=== PATIENT | male | born 1940 | race Caucasian/White ===

== ENCOUNTER 2018-12-08 09:01 | Outpatient (CLI) | payer MEDICARE, OTHER, SELFPAY ==
[2018-12-08 11:09] LABS: Abs Immature Grans 0.03 k/cumm (0.0-0.09); Absolute Basophil Count 0.07 k/cumm (0.0-0.2); Absolute Eosinophil Count 0.96 k/cumm (0.0-0.7); Absolute Lymphocyte Count 1.08 k/cumm (1.2-3.4); Absolute Monocyte Count 0.41 k/cumm (0.11-0.7); Absolute Neutrophil Count 2.85 k/cumm (1.2-6.7); Basophils % 1.3; Eosinophils % 17.8; HCT 36.2 % (40.0-50.0); HGB 12.4 g/dL (13.5-17.5); Immature Grans % 0.6; Mean Corp. HGB Concentration 34.3 g/dL (32.0-36.0); Mean Corpuscular Hemoglobin 31.1 pg (27.0-33.0); Mean Corpuscular Volume 90.7 fL (80-95); Mean Platelet Volume 11.3 fL (8.0-11.0); Monocytes % 7.6; Neutrophils % 52.7; Platelet Count 243 x1000/uL (130-400); RBC 3.99 m/cumm (4.50-6.00); RBC Distribution Width 13.2 % (11.8-14.1)
[2018-12-08 11:24] LABS: ALT 21 U/L (12-78); AST 18 U/L (15-37); Albumin 3.7 g/dL (3.4-5.0); Alkaline Phosphatase 84 U/L (46-116); Anion Gap 11.9 mmol/L (3-11); BUN 19 mg/dL (7-18); Bilirubin, Total 0.4 mg/dL (0.2-1.0); CO2 23.1 mmol/L (21.0-32.0); CREATININE 1.11 mg/dL (0.70-1.30); Calcium 9.4 mg/dL (8.5-10.1); Chloride 102 mmol/L (98-107); Glucose 122 mg/dL (70-100); Potassium 4.8 mmol/L (3.5-5.1); Sodium 137 mmol/L (136-145)
[2018-12-08 11:42] LABS: ESR 63 MM/HR (1-20)
== END 2018-12-08 09:21 ==
PROVIDERS: PCP Emergency Medicine; Visit Provider Emergency Medicine
DX: M48.56XA Collapsed vertebra, not elsewhere classified, lumbar region, initial encounter for fracture (principal)
CPT/HCPCS: 36415; 80053; 85652; 85025

== ENCOUNTER 2019-06-10 02:16 | Outpatient (CLI) | payer MEDICARE, OTHER, SELFPAY ==
--- NOTE | 2019-06-10 07:31 | DI.US_ITS ---
SYMPTOM/DIAGNOSIS: ABD AORTIC ANEURYSM W/O RUPTURE ABDOMINAL ULTRASOUND: Abdominal aortic ultrasound. Comparison is 12/11/17 There is again seen a distal abdominal aortic aneurysm measuring 3.6 x 3.5 cm compared to 3.5 cm on the prior examination. The right iliac artery measures 2.0 cm. This also is stable. IMPRESSION: Stable distal abdominal aortic aneurysm measuring 3.6 cm in diameter
== END 2019-06-10 02:36 ==
PROVIDERS: PCP Emergency Medicine; Visit Provider Emergency Medicine
DX: I71.4 Abdominal aortic aneurysm, without rupture (principal)
CPT/HCPCS: 76775

== ENCOUNTER → 2019-12-01 11:13 | Outpatient (BNVA) | payer MEDICARE, OTHER, SELFPAY | PROVIDERS: PCP Emergency Medicine; Referring Provider Emergency Medicine; Visit Provider Physical Therapy Assistant | DX: L97.328 Non-pressure chronic ulcer of left ankle with other specified severity (principal); I10 Essential (primary) hypertension | CPT/HCPCS: 99213 ==

== ENCOUNTER → 2019-12-08 10:54 | Outpatient (BNVA) | payer MEDICARE, OTHER, SELFPAY | PROVIDERS: PCP Emergency Medicine; Referring Provider Emergency Medicine; Visit Provider Physical Therapy Assistant | DX: Z48.817 Encounter for surgical aftercare following surgery on the skin and subcutaneous tissue (principal); L98.8 Other specified disorders of the skin and subcutaneous tissue | CPT/HCPCS: 99212 ==

== ENCOUNTER → 2019-12-15 10:57 | Outpatient (BNVA) | payer MEDICARE, OTHER, SELFPAY | PROVIDERS: PCP Emergency Medicine; Referring Provider Emergency Medicine; Visit Provider Physical Therapy Assistant | DX: L98.8 Other specified disorders of the skin and subcutaneous tissue (principal) | CPT/HCPCS: 99212; 99213 ==

== ENCOUNTER → 2019-12-29 10:48 | Outpatient (BNVA) | payer MEDICARE, OTHER, SELFPAY | PROVIDERS: PCP Emergency Medicine; Referring Provider Emergency Medicine; Visit Provider Physical Therapy Assistant | DX: Z12.11 Encounter for screening for malignant neoplasm of colon (principal) | CPT/HCPCS: 99212 ==

== ENCOUNTER → 2020-01-10 09:15 | Outpatient (BNVA) | payer MEDICARE, OTHER, SELFPAY | PROVIDERS: PCP Emergency Medicine; Referring Provider Emergency Medicine; Visit Provider Surgery | DX: X58.XXXD Exposure to other specified factors, subsequent encounter; Z51.89 Encounter for other specified aftercare; S81.802D Unspecified open wound, left lower leg, subsequent encounter | CPT/HCPCS: 99212 ==

== ENCOUNTER → 2020-01-13 11:17 | Outpatient (BNVA) | payer MEDICARE, OTHER, SELFPAY | PROVIDERS: PCP Emergency Medicine; Referring Provider Emergency Medicine; Visit Provider Physical Therapy Assistant | DX: L97.328 Non-pressure chronic ulcer of left ankle with other specified severity (principal); Z51.89 Encounter for other specified aftercare | CPT/HCPCS: 99213 ==

== ENCOUNTER → 2020-01-17 11:15 | Outpatient (BNVA) | payer MEDICARE, OTHER, SELFPAY | PROVIDERS: PCP Emergency Medicine; Referring Provider Emergency Medicine; Visit Provider Surgery | DX: Z48.817 Encounter for surgical aftercare following surgery on the skin and subcutaneous tissue (principal); Z48.01 Encounter for change or removal of surgical wound dressing | CPT/HCPCS: 99213 ==

== ENCOUNTER → 2020-01-19 09:50 | Outpatient (BNVA) | payer MEDICARE, OTHER, SELFPAY | PROVIDERS: PCP Emergency Medicine; Referring Provider Emergency Medicine; Visit Provider Physical Therapy Assistant | DX: Z48.00 Encounter for change or removal of nonsurgical wound dressing (principal) | CPT/HCPCS: 99213 ==

== ENCOUNTER 2020-01-24 01:51 | Outpatient (CLI) | payer MEDICARE, OTHER, SELFPAY ==
--- NOTE | 2020-01-24 08:45 | DI.CT_ITS ---
EXAM: CT LOWER EXTREMITY LT W CLINICAL HISTORY: Chronic wound/Increased erythema, left inner ankle, S81.809A. TECHNIQUE: Imaging Protocol: Axial computed tomography images with coronal and sagittal reformatted images were created and reviewed. CONTRAST MATERIAL: Intravenous: Omnipaque 350 Contrast volume:100 mL contrast route:IV - Oral: No COMPARISON: ABD PELVIS WITH CONTRAST from 05/15/2016 FINDINGS: Bones: The osseous structures and articular surfaces are intact. There is no evidence of fracture or dislocation. Bony alignment is satisfactory. The mid-foot is well maintained. No findings to suggest osteomyelitis are present. Degenerative changes are seen at the ankle. No lytic or sclerotic lesio ns are identified. Soft Tissues: There is skin thickening and subcutaneous edema along the medial aspect of the lower l eg extending into the lower foot suggesting cellulitis. No focal fluid collection is seen to suggest an abscess. Vasculature: There is atherosclerosis present particularly involving the popliteal artery and the ant erior tibial artery. There are areas of stenosis seen throughout the anterior tibial artery. The fi bular and posterior tibial arteries are well maintained throughout their length. IMPRESSION: 1. No findings to suggest acute osteomyelitis. 2. Atherosclerosis of the arteries in the lower extremity particularly involving the anterior tibial artery. Areas of stenosis are seen throughout the anterior tibial artery. 3. Cellulitis of the lower extremity without evidence of an abscess. DATA REPOSITORY: All CT scans at this facility are submitted to the National Radiology Data Registry (NRDR) Dose Index Registry (DIR) with the [employer] (ACR). RADIATION OPTIMIZATION: All CT scans at this facility use at least one of these dose optimization te chniques: automated exposure control; mA and/or kV adjustment per patient size (includes targeted exa ms where dose is matched to clinical indication); or iterative reconstruction.
[2020-01-24] MEDS: Omnipaque 350 MG/ML 100 ML BTL IJ (10:39)
[2020-01-24] MEDS: Normal Saline - Diluent 50 ML VIAL IV (10:40)
== END 2020-01-24 02:11 ==
PROVIDERS: PCP Emergency Medicine; Visit Provider Surgery
DX: L03.116 Cellulitis of left lower limb (principal); L97.328 Non-pressure chronic ulcer of left ankle with other specified severity; Z48.00 Encounter for change or removal of nonsurgical wound dressing
CPT/HCPCS: 99212; 73701; J3490

== ENCOUNTER → 2020-01-27 09:49 | Outpatient (BNVA) | payer MEDICARE, OTHER, SELFPAY | PROVIDERS: PCP Emergency Medicine; Referring Provider Emergency Medicine; Visit Provider Physical Therapy Assistant | DX: I83.023 Varicose veins of left lower extremity with ulcer of ankle; L97.322 Non-pressure chronic ulcer of left ankle with fat layer exposed; F17.210 Nicotine dependence, cigarettes, uncomplicated; I10 Essential (primary) hypertension | CPT/HCPCS: 99213 ==

== ENCOUNTER → 2020-01-31 10:13 | Outpatient (BNVA) | payer MEDICARE, OTHER, SELFPAY | PROVIDERS: PCP Emergency Medicine; Referring Provider Emergency Medicine; Visit Provider Physical Therapy Assistant | DX: Z48.00 Encounter for change or removal of nonsurgical wound dressing (principal); L97.322 Non-pressure chronic ulcer of left ankle with fat layer exposed; I10 Essential (primary) hypertension | CPT/HCPCS: 99212 ==

== ENCOUNTER → 2020-02-03 11:38 | Outpatient (BNVA) | payer MEDICARE, OTHER, SELFPAY | PROVIDERS: PCP Emergency Medicine; Referring Provider Emergency Medicine; Visit Provider Surgery | DX: L97.922 Non-pressure chronic ulcer of unspecified part of left lower leg with fat layer exposed (principal); Z48.00 Encounter for change or removal of nonsurgical wound dressing | CPT/HCPCS: 99212 ==

== ENCOUNTER → 2020-02-08 11:49 | Outpatient (BNVA) | payer MEDICARE, OTHER, SELFPAY | PROVIDERS: PCP Emergency Medicine; Referring Provider Emergency Medicine; Visit Provider Physical Therapy Assistant | DX: Z48.00 Encounter for change or removal of nonsurgical wound dressing (principal); L97.922 Non-pressure chronic ulcer of unspecified part of left lower leg with fat layer exposed; I10 Essential (primary) hypertension | CPT/HCPCS: 99213 ==

== ENCOUNTER → 2020-02-15 09:58 | Outpatient (BNVA) | payer MEDICARE, OTHER, SELFPAY | PROVIDERS: PCP Emergency Medicine; Referring Provider Emergency Medicine; Visit Provider Physical Therapy Assistant | DX: Z48.00 Encounter for change or removal of nonsurgical wound dressing (principal); L97.922 Non-pressure chronic ulcer of unspecified part of left lower leg with fat layer exposed; I10 Essential (primary) hypertension | CPT/HCPCS: 99213 ==

== ENCOUNTER → 2020-02-22 09:50 | Outpatient (BNVA) | payer MEDICARE, OTHER, SELFPAY | PROVIDERS: PCP Emergency Medicine; Referring Provider Emergency Medicine; Visit Provider Physical Therapy Assistant | DX: Z48.00 Encounter for change or removal of nonsurgical wound dressing (principal); L97.922 Non-pressure chronic ulcer of unspecified part of left lower leg with fat layer exposed; I10 Essential (primary) hypertension | CPT/HCPCS: 99213 ==

== ENCOUNTER → 2020-02-29 10:06 | Outpatient (BNVA) | payer MEDICARE, OTHER, SELFPAY | PROVIDERS: PCP Emergency Medicine; Referring Provider Emergency Medicine; Visit Provider Surgery | DX: L97.322 Non-pressure chronic ulcer of left ankle with fat layer exposed (principal); I83.023 Varicose veins of left lower extremity with ulcer of ankle; D64.9 Anemia, unspecified; Z48.00 Encounter for change or removal of nonsurgical wound dressing; F17.210 Nicotine dependence, cigarettes, uncomplicated; I10 Essential (primary) hypertension | CPT/HCPCS: 99212; 99213 ==

== ENCOUNTER → 2020-03-09 09:50 | Outpatient (BNVA) | payer MEDICARE, OTHER, SELFPAY | PROVIDERS: PCP Emergency Medicine; Referring Provider Emergency Medicine; Visit Provider Surgery | DX: L97.922 Non-pressure chronic ulcer of unspecified part of left lower leg with fat layer exposed (principal); I83.023 Varicose veins of left lower extremity with ulcer of ankle; Z51.89 Encounter for other specified aftercare; F17.200 Nicotine dependence, unspecified, uncomplicated; I72.3 Aneurysm of iliac artery; I71.4 Abdominal aortic aneurysm, without rupture; I21.9 Acute myocardial infarction, unspecified; I65.29 Occlusion and stenosis of unspecified carotid artery; E78.5 Hyperlipidemia, unspecified; G62.9 Polyneuropathy, unspecified; I87.2 Venous insufficiency (chronic) (peripheral) | CPT/HCPCS: 99213 ==

== ENCOUNTER → 2020-03-12 10:55 | Outpatient (BNVA) | payer MEDICARE, OTHER, SELFPAY | PROVIDERS: PCP Emergency Medicine; Referring Provider Emergency Medicine; Visit Provider Surgery | DX: I87.2 Venous insufficiency (chronic) (peripheral) (principal); Z51.89 Encounter for other specified aftercare; I72.3 Aneurysm of iliac artery; L97.522 Non-pressure chronic ulcer of other part of left foot with fat layer exposed; L97.922 Non-pressure chronic ulcer of unspecified part of left lower leg with fat layer exposed; I83.023 Varicose veins of left lower extremity with ulcer of ankle; F17.200 Nicotine dependence, unspecified, uncomplicated; Z98.890 Other specified postprocedural states; I65.29 Occlusion and stenosis of unspecified carotid artery; E78.5 Hyperlipidemia, unspecified | CPT/HCPCS: 99212; 99213 ==

== ENCOUNTER → 2020-03-21 10:55 | Outpatient (BNVA) | payer MEDICARE, OTHER, SELFPAY | PROVIDERS: PCP Emergency Medicine; Referring Provider Emergency Medicine; Visit Provider Surgery | DX: I87.2 Venous insufficiency (chronic) (peripheral) (principal); Z51.89 Encounter for other specified aftercare; L97.522 Non-pressure chronic ulcer of other part of left foot with fat layer exposed; L97.922 Non-pressure chronic ulcer of unspecified part of left lower leg with fat layer exposed; I83.003 Varicose veins of unspecified lower extremity with ulcer of ankle; F17.200 Nicotine dependence, unspecified, uncomplicated; D64.9 Anemia, unspecified; I70.203 Unspecified atherosclerosis of native arteries of extremities, bilateral legs | CPT/HCPCS: 99212; 99213 ==

== ENCOUNTER → 2020-03-28 11:00 | Outpatient (BNVA) | payer MEDICARE, OTHER, SELFPAY | PROVIDERS: PCP Emergency Medicine; Referring Provider Emergency Medicine; Visit Provider Surgery | DX: L97.522 Non-pressure chronic ulcer of other part of left foot with fat layer exposed (principal); Z51.89 Encounter for other specified aftercare | CPT/HCPCS: 99212; 99213 ==

== ENCOUNTER → 2020-04-04 11:30 | Outpatient (BNVA) | payer MEDICARE, OTHER, SELFPAY | PROVIDERS: PCP Emergency Medicine; Referring Provider Emergency Medicine; Visit Provider Surgery | DX: L97.922 Non-pressure chronic ulcer of unspecified part of left lower leg with fat layer exposed (principal); L97.302 Non-pressure chronic ulcer of unspecified ankle with fat layer exposed; Z48.00 Encounter for change or removal of nonsurgical wound dressing; I70.203 Unspecified atherosclerosis of native arteries of extremities, bilateral legs; I87.2 Venous insufficiency (chronic) (peripheral); I83.003 Varicose veins of unspecified lower extremity with ulcer of ankle; F17.200 Nicotine dependence, unspecified, uncomplicated | CPT/HCPCS: 99212; 99213 ==

== ENCOUNTER → 2020-04-18 10:55 | Outpatient (BNVA) | payer MEDICARE, OTHER, SELFPAY | PROVIDERS: PCP Emergency Medicine; Referring Provider Emergency Medicine; Visit Provider Surgery | DX: L97.522 Non-pressure chronic ulcer of other part of left foot with fat layer exposed (principal); L97.922 Non-pressure chronic ulcer of unspecified part of left lower leg with fat layer exposed; I87.2 Venous insufficiency (chronic) (peripheral); Z51.89 Encounter for other specified aftercare; F17.200 Nicotine dependence, unspecified, uncomplicated; I83.002 Varicose veins of unspecified lower extremity with ulcer of calf; L97.329 Non-pressure chronic ulcer of left ankle with unspecified severity | CPT/HCPCS: 99212; 99213 ==

== ENCOUNTER → 2020-05-16 09:59 | Outpatient (BNVA) | payer MEDICARE, OTHER, SELFPAY | PROVIDERS: PCP Emergency Medicine; Referring Provider Emergency Medicine; Visit Provider Surgery | DX: I83.023 Varicose veins of left lower extremity with ulcer of ankle (principal); L97.321 Non-pressure chronic ulcer of left ankle limited to breakdown of skin; F17.200 Nicotine dependence, unspecified, uncomplicated; L97.922 Non-pressure chronic ulcer of unspecified part of left lower leg with fat layer exposed | CPT/HCPCS: 99211; 99213 ==

== ENCOUNTER 2020-05-25 03:54 | Outpatient (CLI) | payer MEDICARE, OTHER, SELFPAY ==
--- NOTE | 2020-05-25 06:45 | DI.US_ITS ---
EXAM: US AAA DIAGNOSTIC CLINICAL HISTORY: F/U AAA,I71.4 TECHNIQUE: Ultrasound performed using standard protocol. COMPARISON: US US AAA diagnostic from 06/10/2019 FINDINGS: Ultrasound examination of the abdominal aorta was performed to re-evaluate infrarenal 36 millimeter i n diameter aneurysm seen on prior ultrasound of June 2019. On today's examination the 36 millimeter aneurysm is again seen, no change in appearance. No evidenc e of leakage or pseudoaneurysm. The common iliac arteries are mildly aneurysmal as well, measuring a bout 22 millimeters in greatest diameter on the left and about 24 millimeters in greatest diameter on the right. IMPRESSION: Stable 36 millimeter infrarenal abdominal aortic aneurysm. DATA REPOSITORY:
== END 2020-05-25 04:14 ==
PROVIDERS: PCP Emergency Medicine; Visit Provider Emergency Medicine
DX: I71.4 Abdominal aortic aneurysm, without rupture (principal)
CPT/HCPCS: 76775

== ENCOUNTER → 2020-06-06 10:54 | Outpatient (BNVA) | payer MEDICARE, OTHER, SELFPAY | PROVIDERS: PCP Emergency Medicine; Referring Provider Emergency Medicine; Visit Provider Physical Therapy Assistant | DX: L97.321 Non-pressure chronic ulcer of left ankle limited to breakdown of skin (principal); I83.023 Varicose veins of left lower extremity with ulcer of ankle; Z51.89 Encounter for other specified aftercare | CPT/HCPCS: 99212 ==

== ENCOUNTER → 2020-06-27 09:53 | Outpatient (BNVA) | payer MEDICARE, OTHER, SELFPAY | PROVIDERS: PCP Emergency Medicine; Referring Provider Emergency Medicine; Visit Provider Surgery | DX: I83.023 Varicose veins of left lower extremity with ulcer of ankle (principal); Z51.89 Encounter for other specified aftercare; I87.2 Venous insufficiency (chronic) (peripheral) | CPT/HCPCS: 99212 ==

== ENCOUNTER 2021-02-26 23:09 | Outpatient (REF) | payer MEDICARE, OTHER, SELFPAY ==
[2021-02-26 14:18] LABS: Calculated LDL 89 mg/dL (<100); Cholesterol 162 mg/dL (<200); HDL Cholesterol 29 mg/dL (40-60); Triglyceride 220 mg/dL (<150)
== END 2021-02-26 23:10 | disposition home or self-care (01) ==
LOC: LBN 23:09
PROVIDERS: PCP Emergency Medicine; Visit Provider Emergency Medicine
DX: I71.4 Abdominal aortic aneurysm, without rupture (principal)
CPT/HCPCS: 80061

== ENCOUNTER 2021-06-28 03:56 | Outpatient (CLI) | payer MEDICARE, OTHER, SELFPAY ==
--- NOTE | 2021-06-28 07:00 | DI.US_ITS ---
Exam(s) US AAA DIAGNOSTIC EXAM: US AAA DIAGNOSTIC CLINICAL HISTORY: F/U AAA,I71.4 COMPARISON: US US AAA DIAGNOSTIC from 05/25/2020 FINDINGS: Abdominal Aorta: Proximal: 2.4 x 2.7 cm Mid: 2.7 x 2.8 cm Distal: 3.5 x 3.4 cm Iliac's: Right: 2.4 x 2.4 cm Left: 1.5 x 1.8 cm The doppler velocities are within normal limits. Atherosclerosis is present. IMPRESSION: 1. Stable distal abdominal aortic aneurysm. There is maximum diameter 3.5 cm on the current examinat ion compared to 3.6 on the prior examination. 2. 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 DATA REPOSITORY:
== END 2021-06-28 04:16 ==
PROVIDERS: PCP Emergency Medicine; Visit Provider Emergency Medicine
DX: I71.4 Abdominal aortic aneurysm, without rupture (principal); I72.3 Aneurysm of iliac artery
CPT/HCPCS: 76775

== ENCOUNTER → 2022-03-03 02:57 | Outpatient (CLI) | payer MEDICARE, SELFPAY ==
--- NOTE | 2022-03-03 06:30 | DI.CT_ITS ---
Exam(s) CT LUMBAR SPINE WO EXAM: CT LUMBAR SPINE WO CLINICAL HISTORY: neurogenic claudication,spinal stenosis, m48.00. TECHNIQUE: Imaging Protocol: Axial computed tomography images with coronal and sagittal reformatted images were created and reviewed COMPARISON: CT ABD PELVIS WITH CONTRAST from 05/15/2016 CT LUMBAR SPINE WITHOUT CONTRAST from 05/19/2018 FINDINGS: Bones: The last intervertebral disc space is designated the L5/S1 level for the numbering purpose of this examination. Since the prior examination the compression fracture deformity of L3 has progresse d. There is now loss of almost 50 percent of the height of the vertebral body centrally. There is a lso been progression of the compression deformity of L4 since the prior examination. There is loss o f approximately 25 percent of the height of the vertebral body. There is a new compression deformity at L2. Acuity is indeterminate. There is loss of approximately 30 percent of the height of the sarina tebral body centrally. No retropulsion is seen. Alignment is satisfactory. The bones are osteopenic . There is no spondylolysis or spondylolisthesis. T12-L1: No disc herniations or bulges are present. No central spinal canal or neural foraminal steno sis. L1-2: There is a mild diffuse disc bulge. There is a vacuum disc present. No central spinal canal or neural foraminal stenosis. L2-3: There is a mild diffuse disc bulge. No central spinal canal or neural foraminal stenosis. L3-4: There is a mild diffuse disc bulge. There are hypertrophic changes of the endplates and facet s. These findings cause mild narrowing of the central spinal canal. There is also [id number] bilateral neural foraminal stenosis. L4-5: There is a diffuse disc bulge. There are degenerative changes of the facets. No significant central spinal canal stenosis is seen. There is mild right and moderately severe left neural foramin al stenosis. L5-S1: No disc herniations or bulges are present. Degenerative changes of the facets are seen. The findings result in marked bilateral neural foraminal stenosis. No significant central spinal canal s tenosis. Soft Tissues: The visualized SI joints and sacrum are will maintained. The paraspinal soft tissues a re unremarkable. There is diverticulosis seen in the colon, but no evidence of acute diverticulitis. A normal appendix is visualized. Abdominal aorta: There is tortuosity of the abdominal aorta. There is a 3.2 cm distal abdominal aort ic aneurysm. The right kidney is incompletely imaged but there is capsular calcification around a si gnificant portion of the right kidney laterally. This has progressed since the CT examination from . IMPRESSION: 1. Multilevel degenerative changes in the lumbar spine resulting in central spinal canal and neural f oraminal stenosis as described above. 2. Compression fracture deformities of L2, L3 and L4. The L2 compression fracture deformity is new s mahendra the most recent examination from 05/19/2018. There has been progression of the compression of th e L3 and L4 vertebral bodies compared to the prior examination. 3. 3.2 cm distal abdominal aortic aneurysm. RADIATION DOSE DELIVERED: 792.06mGy.cm Total DLP 792.06mGy.cm Total DLP DATA REPOSITORY: All CT scans at this facility are submitted to the National Radiology Data Registry (NRDR) Dose Index Registry (DIR) with the [employer] (ACR). RADIATION OPTIMIZATION: All CT scans at this facility use at least one of these dose optimization te chniques: automated exposure control; mA and/or kV adjustment per patient size (includes targeted exa ms where dose is matched to clinical indication); or iterative reconstruction.
== END ==
PROVIDERS: PCP Family Medicine; Visit Provider Emergency Medicine
DX: M48.062 Spinal stenosis, lumbar region with neurogenic claudication (principal); M48.56XA Collapsed vertebra, not elsewhere classified, lumbar region, initial encounter for fracture; M51.16 Intervertebral disc disorders with radiculopathy, lumbar region
CPT/HCPCS: 72131

== ENCOUNTER → 2022-10-06 01:43 | Outpatient (CLI) | payer MEDICARE, SELFPAY ==
--- NOTE | 2022-10-06 07:00 | DI.US_ITS ---
Exam(s) US AAA DIAGNOSTIC EXAM: US AAA DIAGNOSTIC CLINICAL HISTORY: reassess AAA,i71.4 COMPARISON: CT CT LUMBAR SPINE WO from 03/03/2022 FINDINGS: Abdominal Aorta: Proximal: 3.1 cm Mid: 3.3 cm Distal: 3.2 by 3.6 cm Iliacs: Right: 2.1 cm Left: 1.6 cm IMPRESSION: Mild interval increase in size a abdominal aortic aneurysm, now measuring 3.6 cm maximal diameter dis tally. Stable dilatation right common iliac artery, 2.1 cm. DATA REPOSITORY:
== END ==
PROVIDERS: PCP Family Medicine; Visit Provider Family Medicine
DX: I71.40 Abdominal aortic aneurysm, without rupture, unspecified (principal); I72.3 Aneurysm of iliac artery
CPT/HCPCS: 76775

== ENCOUNTER 2023-03-26 11:27 | Outpatient (CLI) | payer MEDICARE, SELFPAY ==
[2023-03-26 12:19] LABS: HCT 34.4 % (40.0-50.0); HGB 11.3 g/dL (13.5-17.5); MCH 29.9 pg (27.0-33.0); MCHC 32.8 % (32.0-36.0); MCV 91 fL (80-95); MPV 10.9 fL (8.0-11.0); Platelet Count 198 10^3/uL (130-400); RBC 3.78 10^6/uL (4.36-5.78); RDW 13.4 % (11.8-14.1); WBC 6.45 10^3/uL (4.4-10.8)
[2023-03-26 12:37] LABS: Anion Gap 8.5 mmol/L (3-11); BUN 16 mg/dL (7-18); CO2 26.5 mmol/L (21.0-32.0); CREATININE 1.3 mg/dL (0.70-1.30); Calcium 9.2 mg/dL (8.5-10.1); Calculated LDL 91 mg/dL (<100); Chloride 103 mmol/L (98-107); Cholesterol 155 mg/dL (<200); Estimated GFR 54.85 (mL/min/1.73m2); Glucose 101 mg/dL (74-106); HDL Cholesterol 37 mg/dL (40-60); Potassium 4.6 mmol/L (3.5-5.1); Sodium 138 mmol/L (136-145); Triglyceride 136 mg/dL (<150)
== END 2023-03-26 11:28 | disposition home or self-care (01) ==
LOC: LOS 11:27
PROVIDERS: PCP Family Medicine; Visit Provider Family Medicine
DX: E78.5 Hyperlipidemia, unspecified (principal); R53.83 Other fatigue; E87.1 Hypo-osmolality and hyponatremia
CPT/HCPCS: 36415; 80048; 80061; 85027

== ENCOUNTER 2023-04-13 01:18 | Outpatient (CLI) | payer MEDICARE, SELFPAY ==
--- NOTE | 2023-04-13 06:45 | DI.US_ITS ---
Exam(s) US AAA DIAGNOSTIC EXAM: US AAA DIAGNOSTIC CLINICAL HISTORY: reevaluate AAA,abnl wt loss, r63.4 COMPARISON: No exams were available for comparison FINDINGS: Abdominal Aorta: Proximal: 2.3 x 2.5 cm Mid: 2.9 x 2.9 cm Distal: 3.6 x 3.9 cm Iliac's: Right: 2.4 x 2.7 cm Left: 1.3 x 1.6 cm Atherosclerosis is present. IMPRESSION: The distal abdominal aorta measures 3.6 x 3.9 cm. This compares to 3.2 x 3.6 cm on the prior examina tion. DATA REPOSITORY:
== END 2023-04-13 01:38 ==
LOC: DI 01:18
PROVIDERS: PCP Family Medicine; Visit Provider Family Medicine
DX: R63.4 Abnormal weight loss (principal); I70.91 Generalized atherosclerosis; I77.811 Abdominal aortic ectasia
CPT/HCPCS: 76775

== ENCOUNTER 2023-06-06 18:53 | Observation (INO) | payer MEDICARE, SELFPAY ==
[2023-06-06] VITALS (109 sets, daily range): BP systolic 136–172; BP diastolic 56–88; PULSE 65–81; RESP 12–32; TEMP 36.4; O2SAT 94–98
--- NOTE | 2023-06-06 18:45 | DI.RAD_ITS ---
Exam(s) XR CHEST 2V PA LATERAL EXAM: XR CHEST 2V PA LATERAL CLINICAL HISTORY: syncope TECHNIQUE: 2D digital imaging was performed. COMPARISON: CR CHEST 2 VIEWS PA,LAT from 08/21/2015 FINDINGS: HEART: Normal size. Aorta: Not dilated. PULMONARY VASCULATURE: Normal. LUNGS: Masslike density seen left upper lobe roughly 3 cm. Underlying fibrotic changes. PLEURAL SPACE: No pleural effusion or pneumothorax. BONE:Unremarkable for age. Soft tissues: Small metallic density again noted over the head of the right clavicle, noted on prior exam. IMPRESSION: Roughly 3 centimeter mass like lesion in the right parahilar region, focal infiltrate versus mass. C hest CT with contrast recommended for further evaluation. DATA REPOSITORY: RADIATION DOSE DELIVERED:
--- NOTE | 2023-06-06 18:45 | RT.EKG_ITS ---
APPROVED REPORT Exam: Resting ECG Reason for Exam: syncope Patient Location: E HR:72 bpm ECG Measurements Heart Rate 72 AXIS MN 185 P -42 QRSd 142 QRS -8 QT 429 T 160 QTc 462 Conclusion Sinus rhythm... V-rate 60- 99 Ventricular premature complex Left bundle branch block new compared to prior 2017
--- NOTE | 2023-06-06 18:56 | W.ED.GENAD ---
Discharge Plan Disposition Patient Disposition: Admit to [facility] Condition: Serious Discharge Details Chief Complaint: [id number] Clinical Impression: Syncope and collapse Primary Care Provider: Marino Nieto ED Provider: Le Baker Home Meds and New Rx's Prescriptions: No Action silver sulfadiazine [Silvadene] 1 % cream 1 applic Topical DAILY PRN (Reason: wound healing) Qty: 50 6RF triamcinolone acetonide 0.1 % ointment 1 applic Topical BID PRN (Reason: stasis ulcer) Qty: 453.6 2RF lisinopril [Zestril] 20 mg tablet 20 mg PO DAILY Qty: 90 3RF triamcinolone acetonide 0.5 % cream 1 applic Topical BID Qty: 45 3RF Rx Instructions: Use on affected area that is about 3 inches in diameter metoprolol tartrate 50 mg tablet 25 mg PO BID Qty: 90 3RF pravastatin 20 mg tablet 20 mg PO DAILY Qty: 90 3RF amlodipine [Norvasc] 2.5 mg tablet 2.5 mg PO DAILY Qty: 90 3RF Patient Comments: added in error; already in med rec once omeprazole 20 mg capsule,delayed release(DR/EC) 20 mg PO DAILY Qty: 60 6RF aspirin 81 MG tablet,chewable 1 tab PO DAILY Patient Comments: 06/08/18 restarted. [facility] 04/21/18 not taking. [facility] amlodipine 2.5 mg tablet 2.5 mg DAILY Patient Comments: TAKE 1 TABLET BY MOUTH DAILY Medical Decision Making 82yo male with HTN, HLD, chronic ulcer left foot, prior NH in 40's, presenting with syncope. History from patient and EMS. Yard work and decreased PO intake today. At dinner felt unwell, clammy, then passed out; came to still in chair. No fall or head strike. No chest pain or shortness of breath at any point. On EMS arrival patient bradycardic to 40's and hypotensive to SBP 80's; resolved without intervention. Vital signs reassuring on arrival with HR in 60's on monitor, patient alert, well appearing, denies complaints. Fingerstick blood glucose reassuring. High risk syncope in elderly patient; EKG sinus rhythm with LBBB which is new compared to prior EKG in 2018, no over indications of ischemia. Labs as below, CBC with mild anemia (hg 11.4), no leukocytosis. CMP with Cr 1.8 (most recent prior 1.4 in 2018, does not meet criteria for CARLOZ). Mg slightly low at 1.6, oral replacement ordered. Initial troponin negative. CXR independently reviewed, no pneumonia on my view, radiology read below. Accepted by hospitalist for further workup and management and awaiting transfer to the floor. Imaging Data Radiologic Study: Imaging: X-Ray Radiologist's impression: IMPRESSION: Ill-defined 2.8 cm opacity in the right perihilar region, seen best on the frontal radiograph, but may be located within the anterior aspect of the right upper lobe on the lateral radiograph. Finding may represent infectious/inflammatory focus versus carcinoma. Recommend further evaluation with contrast-enhanced chest CT. Lab Data Labs: Laboratory Tests Range/Units 06/06/23 06/06/23 06/06/23 19:05 19:05 19:05 WBC (4.4-10.8) 10^3/uL 7.72 RBC (4.36-5.78) 10^6/uL 3.81 L Hgb (13.5-17.5) g/dL 11.4 L Hct (40.0-50.0) % 34.8 L MCV (80-95) fL 91 MCH (27.0-33.0) pg 29.9 MCHC (32.0-36.0) % 32.8 RDW (11.8-14.1) % 13.4 Plt Count (130-400) 10^3/uL 215 MPV (8.0-11.0) fL 10.5 Immature Gran % 0.4 Neutrophils % 71.3 Lymphocytes % 7.3 Monocytes % 7.5 Eosinophils % 12.6 Basophils % 0.9 Nucleated RBC % (0.0-0.3) % 0.0 Absolute Neutrophils (1.2-6.7) 10^3/uL 5.51 Absolute Lymphocytes (1.2-3.4) 10^3/uL 0.56 L Absolute Monocytes (0.1-0.8) 10^3/uL 0.58 Absolute Eosinophils (0.0-0.7) 10^3/uL 0.97 H Absolute Basophils (0.0-0.2) 10^3/uL 0.07 PT (9.3-11.0) sec 10.7 INR (0.9-1.1) 1.1 APTT (21.5-31.9) sec 24.3 Sodium (136-145) mmol/L 135 L Potassium (3.5-5.1) mmol/L 4.3 Chloride (98-107) mmol/L 98 Carbon Dioxide (21.0-32.0) mmol/L 25.3 Anion Gap (3-11) mmol/L 11.7 H BUN (7-18) mg/dL 32 H Creatinine (0.70-1.30) mg/dL 1.8 H Est GFR (CKD-EPI 2020) (mL/min/1.73m2) 37.12 Glucose (74-106) mg/dL 131 H Calcium (8.5-10.1) mg/dL 9.2 Magnesium (1.8-2.4) mg/dL 1.6 L Total Bilirubin (0.2-1.0) mg/dL 0.3 AST (15-37) U/L 10 L ALT (16-63) U/L 17 Alkaline Phosphatase (46-116) U/L 127 H Troponin I (<or=60) ng/L < 50 Total Protein (6.4-8.2) g/dL 9.1 H Albumin (3.4-5.0) g/dL 3.3 L TSH (0.36-3.74) uIU/mL 0.42 HPI General Mode of arrival: EMS. Date/Time Provider Initiated Documentation: 06/06/23 18:56. Limitations to Documentation: no limitations. Information obtained by: patient and EMS. HPI Narrative: 82yo male with HTN, HLD, chronic ulcer left foot, prior NH in 40's, presenting with syncope. History from patient and EMS. Was outside working the yard today, did not eat and drink as much as usual. Sat down to dinner and felt generally unwell, clammy, diaphoretic, vision darkened. Lost consciousness. Came to still sitting in the chair with his present; EMS arrived shortly thereafter. Per EMS on their arrival pt bradycardiac to 40's, hypotensive with SBP in 80's. Improved without intervention. Patient denies chest pain or shortness of breath at any time. Reports feeling well now. Has been generally more fatigued over the past week, otherwise in his usual state of health. No fever, chills, rash, nausea, vomiting, abdominal pain, back pain, dysurria, hematuria, chest pain, difficultly breathing, palpations, or other concerns. Related Data Home Medications Medication Instructions Recorded Confirmed aspirin 81 mg chewable tablet 1 tab PO DAILY 03/16/18 06/06/23 triamcinolone acetonide 0.1 % 1 applic topical BID PRN stasis 02/26/21 06/06/23 topical ointment ulcer #453.6 grams silver sulfadiazine 1 % topical 1 applic topical DAILY PRN wound 03/18/22 06/06/23 cream (Silvadene) healing #50 grams pravastatin 20 mg tablet 20 mg PO DAILY #90 tabs 06/17/22 06/06/23 amlodipine 2.5 mg tablet (Norvasc) 2.5 mg PO DAILY #90 tab-caps 08/25/22 03/26/23 omeprazole 20 mg capsule,delayed 20 mg PO DAILY #60 caps 09/02/22 06/06/23 release lisinopril 20 mg tablet (Zestril) 20 mg PO DAILY #90 tab-caps 09/23/22 06/06/23 triamcinolone acetonide 0.5 % 1 applic topical BID psoriasis #45 09/23/22 06/06/23 topical cream grams metoprolol tartrate 50 mg tablet 25 mg PO BID #90 tabs 03/26/23 06/06/23 amlodipine 2.5 mg tablet 2.5 mg DAILY 06/06/23 06/06/23 Previous Rx's Medication Instructions Recorded triamcinolone acetonide 0.1 % 1 applic topical BID PRN stasis 02/26/21 topical ointment ulcer #453.6 grams silver sulfadiazine 1 % topical 1 applic topical DAILY PRN wound 03/18/22 cream (Silvadene) healing #50 grams pravastatin 20 mg tablet 20 mg PO DAILY #90 tabs 06/17/22 amlodipine 2.5 mg tablet (Norvasc) 2.5 mg PO DAILY #90 tab-caps 08/25/22 omeprazole 20 mg capsule,delayed 20 mg PO DAILY #60 caps 09/02/22 release lisinopril 20 mg tablet (Zestril) 20 mg PO DAILY #90 tab-caps 09/23/22 triamcinolone acetonide 0.5 % 1 applic topical BID psoriasis #45 09/23/22 topical cream grams metoprolol tartrate 50 mg tablet 25 mg PO BID #90 tabs 03/26/23 Allergies Allergy/AdvReac Type Severity Reaction Status Date / Time cephalexin [From Keflex] AdvReac Intermediate Pt noted Verified 06/06/23 19:28 severe abdominal discomfort It was unreal General Stated Complaint: [id number] FLOR: 3 Review of Systems Narrative: see HPI PFSH All Active Problems (Updated 06/06/23 @ 20:19 by Le Baker MD) Syncope and collapse (Acute) Spinal stenosis (Acute) GERD (gastroesophageal reflux disease) (Chronic) Weight loss, abnormal (Acute) Atherosclerosis of artery of both lower extremities (Acute) Venous stasis dermatitis of both lower extremities (Acute) Aneurysm of right iliac artery (Acute) Non-healing ulcer of foot with fat layer exposed (Acute) Chronic ulcer of left lower extremity with fat layer exposed (Acute) Venous stasis ulcer of ankle (Acute) Smoker unmotivated to quit (Acute) Myocardial infarction (Acute 10/08/84) Status post carotid endarterectomy (Acute) Status post phlebectomy (Acute) Compression fracture of lumbar spine, non-traumatic (Acute) Abdominal aortic aneurysm (AAA) without rupture (Acute 05/27/16) 3.5cm 05/24 CT scan Abnormal thyroid stimulating hormone (TSH) level (Acute 06/02/17) Chronic suppressed TSH. Normal T3, T4. Anemia (Acute 06/02/17) chronic normocystic. No etiology found. Bundle branch block, unspecified (Acute) left Carotid artery stenosis (Acute) Cataract (Acute) O.D. 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 likely due to DM Psoriasis (Acute) Right rotator cuff tear (Acute 02/20/15) Smell or taste problem (Acute) Syncope and collapse (Acute) ? 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 Sister No problems noted. Social History Smoking/Tobacco Use Status: Current every day Tobacco Type: pipe Smoking risk assessment performed?: Yes Alcohol Intake: current Alcohol Intake frequency: 0-2 drinks per day Substance use type: does not use Housing: house Current gender identity: male Do you feel safe at home: Yes Do you feel safe in your relationship?: Yes Exam Narrative Exam Narrative: General: Alert, well appearing, well nourished, in no acute distress. Head: Normocephalic, atraumatic Neck: Trachea midline, Neck supple. ENT: MMM. No oropharygeal lesions or exudate. Cardiac: RRR, no murmurs appreciated Resp: No respiratory distress. CTAB. Abd: Soft, non-distended, nontender : No suprapubic tenderness. No CVA tenderness. Extremities: No deformities. No peripheral edema. Dressing to left medial malleolus; underlying skin intact. Neurologic: GCS 15. Moves all extremities freely against gravity Course Vital Signs Vital signs: Vital Signs Pulse 81 06/06/23 18:48 Respiratory Rate 18 06/06/23 18:48 Blood Pressure 171/65 H 06/06/23 18:48 Pulse Oximetry 95 06/06/23 18:48 Temperature Source Skin 06/06/23 18:48 Pulse 81 06/06/23 18:48 Respiratory Rate 18 06/06/23 18:48 Blood Pressure 171/65 H 06/06/23 18:48 Blood Pressure Position Supine 06/06/23 18:48 Pulse Oximetry 95 06/06/23 18:48 Oxygen Delivery Method Room Air 06/06/23 18:48 Oxygen Flow Rate 0 06/06/23 18:48 Pain Level 0 06/06/23 18:48
[2023-06-06 19:13] LABS: Abs Immature Grans 0.03 10^3/uL (0.0-0.06); Absolute Basophil Count 0.07 10^3/uL (0.0-0.2); Absolute Eosinophil Count 0.97 10^3/uL (0.0-0.7); Absolute Lymphocyte Count 0.56 10^3/uL (1.2-3.4); Absolute Monocyte Count 0.58 10^3/uL (0.1-0.8); Absolute Neutrophil Count 5.51 10^3/uL (1.2-6.7); Basophils % 0.9; Eosinophils % 12.6; HCT 34.8 % (40.0-50.0); HGB 11.4 g/dL (13.5-17.5); Immature Grans % 0.4; Lymphocytes % 7.3; MCH 29.9 pg (27.0-33.0); MCHC 32.8 % (32.0-36.0); MCV 91 fL (80-95); MPV 10.5 fL (8.0-11.0); Monocytes % 7.5; Neutrophils % 71.3; Platelet Count 215 10^3/uL (130-400); RBC 3.81 10^6/uL (4.36-5.78); RDW 13.4 % (11.8-14.1); RDW-SD 44.7 fL; WBC 7.72 10^3/uL (4.4-10.8)
--- NOTE | 2023-06-06 19:24 | NUR.NOTE ---
Nursing Note: To xray on stretcher
[2023-06-06 19:26] LABS: INR 1.1 (0.9-1.1); PTT Activated 24.3 sec (21.5-31.9); Prothrombin Time 10.7 sec (9.3-11.0)
[2023-06-06 19:37] LABS: ALT 17 U/L (16-63); AST 10 U/L (15-37); Albumin 3.3 g/dL (3.4-5.0); Alkaline Phosphatase 127 U/L (46-116); Anion Gap 11.7 mmol/L (3-11); BUN 32 mg/dL (7-18); Bilirubin, Total 0.3 mg/dL (0.2-1.0); CO2 25.3 mmol/L (21.0-32.0); CREATININE 1.8 mg/dL (0.70-1.30); Calcium 9.2 mg/dL (8.5-10.1); Chloride 98 mmol/L (98-107); Estimated GFR 37.12 (mL/min/1.73m2); Glucose 131 mg/dL (74-106); Magnesium 1.6 mg/dL (1.8-2.4); Potassium 4.3 mmol/L (3.5-5.1); Sodium 135 mmol/L (136-145); TSH 0.42 uIU/mL (0.36-3.74); Total Protein 9.1 g/dL (6.4-8.2); Troponin I < 50 ng/L (<or=60)
--- NOTE | 2023-06-06 19:52 | DI.VRAD_ITS ---
PROCEDURE INFORMATION: Exam: XR Chest Exam date and time: 06/06/2023 7:29 PM Age: 82 years old Clinical indication: Other: Syncope TECHNIQUE: Imaging protocol: Radiologic exam of the chest. Views: 2 views. COMPARISON: No relevant prior studies available. FINDINGS: Lungs: Ill-defined 2.8 cm opacity in the right perihilar region, seen best on the frontal radiograph, but may be located within the anterior aspect of the right upper lobe on the lateral radiograph. Minimal bibasilar atelectasis or scarring. Pleural spaces: Unremarkable. No pleural effusion. No pneumothorax. Heart/Mediastinum: Normal. Bones/joints: Degenerative changes of the visualized acromioclavicular glenohumeral joints. Multilevel thoracic spine degenerative disc space narrowing and osteophyte formation. Soft tissues: 5 mm linear radiopaque density projecting over the right clavicular head, possibly within the soft tissues, but not definitively localized/characterized on this study. IMPRESSION: Ill-defined 2.8 cm opacity in the right perihilar region, seen best on the frontal radiograph, but may be located within the anterior aspect of the right upper lobe on the lateral radiograph. Finding may represent infectious/inflammatory focus versus carcinoma. Recommend further evaluation with contrast-enhanced chest CT. Dictated and Authenticated by: Roe Rodriguez MD. Ordering:PAZ Lujan MD
--- NOTE | 2023-06-06 20:57 | NUR.NOTE ---
Addendum entered by Mandy Goldman RN 06/06/23 21:23: Lizz ALAS notified in report at approx 2056 of delayed admin of ordered magnesium as IV order was not yet verified by pharmacy and PO magnesium ordered was unfortunately not available in ED pyxis. Original Note: Nursing Note: Report to Lizz ALAS; pt to go to room 227 shortly.
--- NOTE | 2023-06-06 21:29 | W.PM.HP.N ---
Date of service: 06/06/23 Time of Service: 21:29 Assessment and Plan Assessment and plan (1) Syncope and collapse: Status: Acute Assessment and plan: Appears to be secondary to dehydration. Monitor on telemetry. IV hydration. Orthostatic VS's. (2) Atherosclerosis of artery of both lower extremities: Status: Acute Assessment and plan: Continue ASA, metoprolol and pravastatin. (3) Myocardial infarction: Status: Acute Assessment and plan: Occurred distantly; when he was in his 40's. Cont ASA, metoprolol and pravastatin. Troponin neg. No CP. (4) Hypomagnesemia: Status: Acute Assessment and plan: Replete and monitor. (5) Chronic ulcer of left lower extremity with fat layer exposed: Status: Acute Assessment and plan: Now healed. Has been seeing wound care at [facility]. (6) Anemia: Status: Acute Assessment and plan: Stable at his baseline. (7) Discharge planning issues: Status: Acute Assessment and plan: Pt is a DNR/DNI Likely home tomorrow. History of Present Illness History of Present Illness Chief Complaint: Syncope Narrative: This is an 82 yo male with a PMH of HTN, HLD, chronic left foot ulcer, FL when in his 40's. He presented to the ED after a syncopal episode. He had been working in the yard on the day of admission. He endorsed eating and drinking less than his norm. He sat down to eat lunch while still outside and then went into the house and sat at the kitchen counter. He then described feeling clammy, diaphoretic. His vision darkened and he lost consciousness. He was still sitting in the chair when he regained consciousness. When EMS arrived his heart rate was in the 40's and SBP in the 80's. This improved w/o intervention. He had no preceding chest pain/palpitations or shortness of breath. No fever/chills. No seizure-like movements noted by who was present. He did report he had been more fatigued over the week preceding this admission. In the ED he reported that he felt well. His presenting VS's were pulse of 81, BP 171/65, RR 18 RA O2 saturation of 95%. WBC count normal. Hgb 11.4; baseline. Na 135, K 4.3, BUN 32, Creatiinine 1.8 (1.3 on 03/26/23). Glucose 131, Mg 1.6. Admitted for hydration and telemetry monitoring. Review of Systems All systems reviewed & are unremarkable except as noted in HPI and below PFSH All Active Problems (Updated 06/06/23 @ 22:01 by Danny Peguero MD) Discharge planning issues (Acute) Hypomagnesemia (Acute) Syncope and collapse (Acute) Spinal stenosis (Acute) GERD (gastroesophageal reflux disease) (Chronic) Weight loss, abnormal (Acute) Atherosclerosis of artery of both lower extremities (Acute) Venous stasis dermatitis of both lower extremities (Acute) Aneurysm of right iliac artery (Acute) Non-healing ulcer of foot with fat layer exposed (Acute) Chronic ulcer of left lower extremity with fat layer exposed (Acute) Venous stasis ulcer of ankle (Acute) Smoker unmotivated to quit (Acute) Myocardial infarction (Acute 10/08/84) Status post carotid endarterectomy (Acute) Status post phlebectomy (Acute) Compression fracture of lumbar spine, non-traumatic (Acute) Abdominal aortic aneurysm (AAA) without rupture (Acute 05/27/16) 3.5cm 05/24 CT scan Abnormal thyroid stimulating hormone (TSH) level (Acute 06/02/17) Chronic suppressed TSH. Normal T3, T4. Anemia (Acute 06/02/17) chronic normocystic. No etiology found. Bundle branch block, unspecified (Acute) left Carotid artery stenosis (Acute) Cataract (Acute) O.D. 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 likely due to DM Psoriasis (Acute) Right rotator cuff tear (Acute 02/20/15) Smell or taste problem (Acute) Syncope and collapse (Acute) ? 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 Sister No problems noted. Social History Smoking/Tobacco Use Status: Current every day Tobacco Type: pipe Smoking risk assessment performed?: Yes Alcohol Intake: current Alcohol Intake frequency: 0-2 drinks per day Substance use type: does not use Housing: house Current gender identity: male Do you feel safe at home: Yes Do you feel safe in your relationship?: Yes Meds Allergies and Home Medications Allergies Allergy/AdvReac Type Severity Reaction Status Date / Time cephalexin [From Keflex] AdvReac Intermediate Pt noted Verified 06/06/23 19:28 severe abdominal discomfort It was unreal Home Medications Medication Instructions Recorded Confirmed Type aspirin 81 mg chewable tablet 1 tab PO DAILY 03/16/18 06/06/23 History triamcinolone acetonide 0.1 % 1 applic topical BID PRN stasis 02/26/21 06/06/23 Rx topical ointment ulcer #453.6 grams silver sulfadiazine 1 % topical 1 applic topical DAILY PRN wound 03/18/22 06/06/23 Rx cream (Silvadene) healing #50 grams pravastatin 20 mg tablet 20 mg PO DAILY #90 tabs 06/17/22 06/06/23 Rx amlodipine 2.5 mg tablet (Norvasc) 2.5 mg PO DAILY #90 tab-caps 08/25/22 03/26/23 Rx omeprazole 20 mg capsule,delayed 20 mg PO DAILY #60 caps 09/02/22 06/06/23 Rx release lisinopril 20 mg tablet (Zestril) 20 mg PO DAILY #90 tab-caps 09/23/22 06/06/23 Rx triamcinolone acetonide 0.5 % 1 applic topical BID psoriasis #45 09/23/22 06/06/23 Rx topical cream grams metoprolol tartrate 50 mg tablet 25 mg PO BID #90 tabs 03/26/23 06/06/23 Rx amlodipine 2.5 mg tablet 2.5 mg DAILY 06/06/23 06/06/23 History Exam Narrative Exam Narrative: Pleasant male lying in bed. Conversant. Const General: cooperative and no acute distress Nutritional Appearance: obese Orientation: alert and oriented x3 Eyes General: appearance normal, both eyes and all related structures Sclera: sclerae normal Resp Effort & Inspection: normal respiratory effort Auscultation: clear to auscultation bilaterally Cardio Rate: regular rate Rhythm: regular rhythm Heart Sounds: S1 normal and S2 normal GI Inspection: normal to inspection Palpation: soft and nontender Skin General skin exam: no rashes or lesions noted Wounds: no wounds (Healed wound that had been chronic at the left medial malleolar area. ) Neuro General: no focal motor deficits Cranial Nerves: facial strength normal and hearing normal Cognition: normal cognition Speech: speech normal Extrem General: no pedal edema and no calf tenderness Psych Appearance: grossly normal Mental Status: mental status grossly normal Affect: normal affect Results Labs 06/06/23 19:05 06/06/23 19:05 Labs: Laboratory Results - last 24 hr 06/06/23 06/06/23 06/06/23 19:05 19:05 19:05 WBC 7.72 RBC 3.81 L Hgb 11.4 L Hct 34.8 L MCV 91 MCH 29.9 MCHC 32.8 RDW 13.4 Plt Count 215 MPV 10.5 Immature Gran % 0.4 Neutrophils % 71.3 Lymphocytes % 7.3 Monocytes % 7.5 Eosinophils % 12.6 Basophils % 0.9 Nucleated RBC % 0.0 Absolute Neutrophils 5.51 Absolute Lymphocytes 0.56 L Absolute Monocytes 0.58 Absolute Eosinophils 0.97 H Absolute Basophils 0.07 PT 10.7 INR 1.1 APTT 24.3 Sodium 135 L Potassium 4.3 Chloride 98 Carbon Dioxide 25.3 Anion Gap 11.7 H BUN 32 H Creatinine 1.8 H Est GFR (CKD-EPI 2020) 37.12 Glucose 131 H Calcium 9.2 Magnesium 1.6 L Total Bilirubin 0.3 AST 10 L ALT 17 Alkaline Phosphatase 127 H Troponin I < 50 Total Protein 9.1 H Albumin 3.3 L TSH 0.42 Last Vital Signs Temp 36.4 C L 06/06/23 21:19 Pulse 77 06/06/23 21:19 Resp 18 06/06/23 21:19 BP 172/78 H 06/06/23 21:19 Pulse Ox 97 06/06/23 21:19 PAWSS Have you Been Recently Intoxicated or Drunk Within the Last 30 days?: No Have you Ever Experienced Previous Episodes of Alcohol Withdrawal?: No Have you ever Experienced Withdrawal Seizures?: No Have you ever Experienced Delirium Tremens(DT)s?: No Have you ever undergone Alcohol Rehabilitation Treatment (i.e, inpt ot outpatient treatment programs)?: No Have you ever Experienced Blackouts?: No Have you ever Combined Alcohol with other Downers within the last 90 days?: No Have you ever Combined Alcohol with any other Substance of Abuse during the last 90 days?: No Positive Blood Alcohol level on Presentation? [PCS.BAL]: No Evidence of Increased Autonomic Activity (i.e. HR>120, tremor, sweating, agitation, nausea)?: No Result: 0 Time Spent Time spent with Patient: 40-54 minutes Time was spent: preparing to see the patient(eg.review tests), obtaining and/or reviewing separately otained hiistory, ordering medications,tests, procedures, referring, communicating with other health behavioral health care coordinator, indepentently interpreting results and counseling the patient
[2023-06-06] MEDS: Lactated Ringers 1,000 ML 125 ML IV (21:34)
[2023-06-06] MEDS: Normal Saline Flush 10 ML SYR IVP (21:34)
[2023-06-06] MEDS: MAGNESIUM SULFATE 4 GM/100 ML BAG IVPB (21:48)
[2023-06-06] MEDS: Magnesium Gluconate 500 MG TAB PO (21:48)
[2023-06-06 22:21] LABS: Bilirubin Negative (Negative); Blood Negative (Negative); Clarity Clear (Clear); Glucose Negative (Negative); Ketones Negative (Negative); Leukocyte Esterase Negative (Negative); Nitrite Negative (Negative); Urobilinogen 0.2 mg/dL (Up to 0.2); pH 5.5 (5-8)
[2023-06-06 22:33] LABS: RBC 0-2 HPF (0-2); WBC 0-2 HPF (0-5)
[2023-06-06 22:34] LABS: Bacteria Negative HPF (Negative); C & S Indicated? No; Crystals Moderate Amorphous HPF (Negative); Epithelial Cells Negative HPF (Negative); Mucus Trace (Negative)
[2023-06-06 22:35] LABS: Casts 3-5 Hyaline LPF (Negative)
[2023-06-06 22:40] LABS: Troponin I < 50 ng/L (<or=60)
[2023-06-07] VITALS: PULSE 63
[2023-06-07 05:52] VITALS: BP 149/84; PULSE 62; RESP 16; TEMP 35.8; O2SAT 95
[2023-06-07 06:47] LABS: Anion Gap 8.1 mmol/L (3-11); BUN 27 mg/dL (7-18); CO2 26.9 mmol/L (21.0-32.0); CREATININE 1.4 mg/dL (0.70-1.30); Calcium 9.1 mg/dL (8.5-10.1); Chloride 101 mmol/L (98-107); Estimated GFR 50.18 (mL/min/1.73m2); Glucose 144 mg/dL (74-106); Magnesium 2.7 mg/dL (1.8-2.4); Potassium 3.8 mmol/L (3.5-5.1); Sodium 136 mmol/L (136-145)
[2023-06-07 07:11] VITALS: PULSE 53
[2023-06-07 07:58] VITALS: BP 127/69; PULSE 70; RESP 18; TEMP 36.6; O2SAT 96
[2023-06-07 08:00] VITALS: BP 127/69; PULSE 70; O2SAT 96
[2023-06-07] MEDS: Aspirin 81 MG CHEW PO (08:01)
[2023-06-07] MEDS: amLODIPine 2.5 MG TAB PO (08:01)
[2023-06-07] MEDS: Lisinopril 20 MG TAB PO (08:01)
[2023-06-07] MEDS: Omeprazole 20 MG CAPCR PO (08:04)
[2023-06-07] MEDS: Pravastatin 20 MG TAB PO (08:04)
[2023-06-07] MEDS: Metoprolol 25 MG TAB PO (08:38)
[2023-06-07 08:49] VITALS: BP 150/72; BP 150/75; BP 152/69; PULSE 72; PULSE 76
--- NOTE | 2023-06-07 10:08 | PDOC.CMIN ---
Date of service: 06/07/23 Time of Service: 10:08 Care Management Initial Assmt Initial Assessment REASON FOR HOSPITALIZATION:: syncope and collapse PREVIOUS FUNCTIONAL STATUS/SOCIAL/FAMILY SUPPORTS:: Sameer lives in [place] with his . ADVANCE DIRECTIVES:: On file. Meseret OSBORNE Has patient been provided with info about the portal/API?: Yes Did the patient sign up for the portal?: No CODE STATUS:: DNR/DNI INSURANCE COVERAGE / FINANCIAL ISSUES:: Medicare [facility] PRIMARY CARE PHYSICIAN:: Marino Nieto POTENTIAL DISCHARGE NEEDS:: follow up with PCP and plan of care PATIENT/FAMILY EDUCATION NEEDS:: Review of discharge instructions, activity, limitations, follow up plan, discuss [employer] TRANSPORTATION:: via private vehicle with family PLAN:: Anticipate Sameer will discharge home with no new services. He will follow up with community providers and plan of care and transport with family. CM to follow and support discharge needs. PFSH All Active Problems (Updated 06/06/23 @ 22:01 by Danny Peguero MD) Discharge planning issues (Acute) Hypomagnesemia (Acute) Syncope and collapse (Acute) Spinal stenosis (Acute) GERD (gastroesophageal reflux disease) (Chronic) Weight loss, abnormal (Acute) Atherosclerosis of artery of both lower extremities (Acute) Venous stasis dermatitis of both lower extremities (Acute) Aneurysm of right iliac artery (Acute) Non-healing ulcer of foot with fat layer exposed (Acute) Chronic ulcer of left lower extremity with fat layer exposed (Acute) Venous stasis ulcer of ankle (Acute) Smoker unmotivated to quit (Acute) Myocardial infarction (Acute 10/08/84) Status post carotid endarterectomy (Acute) Status post phlebectomy (Acute) Compression fracture of lumbar spine, non-traumatic (Acute) Abdominal aortic aneurysm (AAA) without rupture (Acute 05/27/16) 3.5cm 05/24 CT scan Abnormal thyroid stimulating hormone (TSH) level (Acute 06/02/17) Chronic suppressed TSH. Normal T3, T4. Anemia (Acute 06/02/17) chronic normocystic. No etiology found. Bundle branch block, unspecified (Acute) left Carotid artery stenosis (Acute) Cataract (Acute) O.D. 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 likely due to DM Psoriasis (Acute) Right rotator cuff tear (Acute 02/20/15) Smell or taste problem (Acute) Syncope and collapse (Acute) ? 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 Sister No problems noted. Social History Smoking/Tobacco Use Status: Current every day Tobacco Type: pipe Smoking risk assessment performed?: Yes Alcohol Intake: current Alcohol Intake frequency: 0-2 drinks per day Substance use type: does not use Housing: house Current gender identity: male Do you feel safe at home: Yes Do you feel safe in your relationship?: Yes
--- NOTE | 2023-06-07 10:54 | DSE_ITS ---
Date of service: 06/07/23 Time of Service: 10:54 DS: Diagnosis Discharge Diagnosis (1) Syncope and collapse: Status: Acute (2) Orthostatic hypotension: Status: Resolved (3) Acute kidney injury superimposed on chronic kidney disease: Status: Acute (4) Dehydration: Status: Resolved (5) Atherosclerosis of artery of both lower extremities: Status: Acute (6) Myocardial infarction: Status: Acute (7) Hypomagnesemia: Status: Acute (8) Chronic ulcer of left lower extremity with fat layer exposed: Status: Acute (9) Anemia: Status: Acute (10) Lung mass: Status: Acute Asessment and Plan: right parahilar mass - 3 cm - seen on CXR (11) Heart murmur: Status: Chronic Discharge Plan Disposition Patient Disposition: Home Condition: Good Discharge Details Reason For Visit: Syncope Admit Date/Time: 06/06/23 20:23 Admit Provider: Danny Peguero Attending Provider: Danny Peguero Primary Care Provider: Marino Nieto Hospital Course Hospital Course: Mr Kauffman is an 82 year old male with PMHx of CAD s/p VA, HTN, PAD w/ h/o aneurysm of R iliac artery and a chronic L foot ulcer, for which he receives wound care at [facility], mitral regurgitation, carotid stenosis, who was observed on the hospitalist service from 06/06/23 until 06/07/23 after a syncopal event at home. He had been working outside, endorsing what sounds like hard physical labor, and admits to not drinking enough water. On presentation, rk parra did have evidence of dehydration by labs with Cr of 1.8, up from his usual 1.3 as well as orthostasis. He did not have evidence of any arrhythmic events on tele or EKG. He ruled out for ACS. He received IV hydration with resolution of orthostasis. He is able to tolerate his outpatient antihypertensives. He is being discharged home today with instructions to drink plenty of water, with a cardiac event recorder, a referral for an outpatient echo and, since he had evidence of CARLOZ and hypomagnesemia (which was repleted), scripts for BMP and magnesium in 1 week. He is medically stable for discharge home today with above instructions. For his incidentally found R parahilar 3 cm mass-like lesion, seen on CXR, he is being referred to pulmonology. Care for patient as well as completion of his discharge summary on day of discharge took 45 minutes. Home Meds and New Rx's Prescriptions: Continued silver sulfadiazine [Silvadene] 1 % cream 1 applic Topical DAILY PRN (Reason: wound healing) Qty: 50 6RF triamcinolone acetonide 0.1 % ointment 1 applic Topical BID PRN (Reason: stasis ulcer) Qty: 453.6 2RF lisinopril [Zestril] 20 mg tablet 20 mg PO DAILY Qty: 90 3RF triamcinolone acetonide 0.5 % cream 1 applic Topical BID Qty: 45 3RF Rx Instructions: Use on affected area that is about 3 inches in diameter metoprolol tartrate 50 mg tablet 25 mg PO BID Qty: 90 3RF pravastatin 20 mg tablet 20 mg PO DAILY Qty: 90 3RF omeprazole 20 mg capsule,delayed release(DR/EC) 20 mg PO DAILY Qty: 60 6RF aspirin 81 MG tablet,chewable 1 tab PO DAILY Patient Comments: 06/08/18 restarted. [facility] 04/21/18 not taking. [facility] amlodipine 2.5 mg tablet 2.5 mg DAILY Patient Comments: TAKE 1 TABLET BY MOUTH DAILY Discharge Instructions Instructions: Dehydration (DC), Syncope (DC) Additional Instructions: Drink plenty of water. Return to the hospital with any fever, further syncopal episodes, bleeding, chest pain, or shortness of breath. Follow up for your echocardiogram. Follow up with your PCP in 1-2 weeks. Follow up with Dr Milton. Bloodwork in 1 week. Stand Alone Forms: Nursing Discharge Form Referrals: Kalani Milton MD [ [facility] STAFF PHYSICIAN] - (3 cm mass in the right parahilar region seen on CXR (found incidentally).) Marino Nieto MD [Primary Care Provider] - (Please make a follow up appointment for 1-2 weeks after discharge ) Activity:: Activity as Tolerated Equipment/Supplies:: cardiac event recorder Diet:: As Tolerated Discharge Orders Discharge Orders: Discharge Order (Routine); Ordered 06/07/23 Ordered By: Emelina Sahu Other Ambulatory Orders: Basic Metabolic Panel (Routine) Timeframe: 20230615 Location: Determined by Patient Ordered By: Emelina Sahu Cardiac Event Recorder (Routine) Timeframe: 1 Day Facility: [facility] - Location: Respiratory Therapy Ordered By: Emelina Sahu US echocardiogram (Routine) Timeframe: 1 Week Facility: [facility] - Location: DIAGNOSTIC IMAGING Ordered By: Emelina Sahu Magnesium (Routine) Timeframe: 20230615 Location: Determined by Patient Ordered By: Emelina Sahu DS: Summary Time Spent with Patient providing and/or coordinating discharge services: Greater than 30 minutes Status at Discharge Functional status at discharge: independent ambulation Overall status at discharge: patient is back to baseline Mental Status: mental status grossly normal Speech and Movement: speech and movement normal Mood: congruent mood Affect: normal affect Exam Narrative Exam Narrative: General: Pleasant elderly male who is TLINGIT & HAIDA, sitting up comfortably in bed HEENT: EOMI, MMM Heart: RRR, +YOLANDA Lungs: CTAB except for faint expiratory wheezing Abdomen: soft, nontender, nondistended Extremities: no edema BLEs, Distal LLE is tender to palpation, and the patient does not permit an exam of the foot. Psych Mental Status: mental status grossly normal Speech and Movement: speech and movement normal Mood: congruent mood Affect: normal affect DS: Data Vitals/I&O Vitals and I&O: Vital Signs Temperature 36.6 C 06/07/23 07:58 Temperature Source Tympanic 06/07/23 07:58 Pulse 76 06/07/23 08:49 Pulse Rhythm Irregular 06/07/23 08:00 Respiratory Rate 18 06/07/23 07:58 Respiratory Effort Normal, Non-Labored 06/07/23 08:00 Respiratory Depth Normal 06/07/23 08:00 Respiratory Pattern Normal 06/07/23 08:00 Blood Pressure 152/69 H 06/07/23 08:49 Blood Pressure Position Supine 06/06/23 18:48 Pulse Oximetry 96 06/07/23 08:00 Oxygen Delivery Method Room Air 06/07/23 07:58 Oxygen Flow Rate 0 06/07/23 07:58 Pain Level 0 06/07/23 07:58 Intake & Output 06/06/23 06/06/23 06/07/23 11:59 23:59 11:59 Intake Total 320 / 320 Output Total 550 / 550 650 / 650 Balance -530 / -530 -330 / -330 Weight 99.9 kg Intake: IV / Oral 300 / 300 Output: Urine 550 / 550 650 / 650 Other: Urine Color Yellow Yellow Urine Appearance Clear Clear Comment urinal Data Completed and Pending Completed studies during hospitalization [Text1]: CXR: Roughly 3 centimeter mass like lesion in the right parahilar region, focal infiltrate versus mass.? Chest CT with contrast recommended for further evaluation. Labs on day of discharge: Labs from last 24 hours 06/07/23 06/06/23 06/06/23 06:20 22:15 22:00 WBC RBC Hgb Hct MCV MCH MCHC RDW Plt Count MPV Immature Gran % Neutrophils % Lymphocytes % Monocytes % Eosinophils % Basophils % Nucleated RBC % Absolute Neutrophils Absolute Lymphocytes Absolute Monocytes Absolute Eosinophils Absolute Basophils PT INR APTT Sodium 136 Potassium 3.8 Chloride 101 Carbon Dioxide 26.9 Anion Gap 8.1 BUN 27 H Creatinine 1.4 H Est GFR (CKD-EPI 2020) 50.18 Glucose 144 H Calcium 9.1 Magnesium 2.7 H Total Bilirubin AST ALT Alkaline Phosphatase Troponin I < 50 Total Protein Albumin TSH Urine Color Yellow Urine Clarity Clear Urine pH 5.5 Ur Specific [place] 1.020 Urine Protein 30 H Urine Ketones Negative Urine Blood Negative Urine Nitrite Negative Urine Bilirubin Negative Urine Urobilinogen 0.2 Ur Leukocyte Esterase Negative Urine RBC 0-2 Urine WBC 0-2 Ur Epithelial Cells Negative Urine Crystals Moderate Amorphous Urine Bacteria Negative Urine Casts 3-5 Hyaline Urine Mucus Trace Ur Culture Indicated? No Urine Glucose Negative 06/06/23 06/06/23 06/06/23 19:05 19:05 19:05 WBC 7.72 RBC 3.81 L Hgb 11.4 L Hct 34.8 L MCV 91 MCH 29.9 MCHC 32.8 RDW 13.4 Plt Count 215 MPV 10.5 Immature Gran % 0.4 Neutrophils % 71.3 Lymphocytes % 7.3 Monocytes % 7.5 Eosinophils % 12.6 Basophils % 0.9 Nucleated RBC % 0.0 Absolute Neutrophils 5.51 Absolute Lymphocytes 0.56 L Absolute Monocytes 0.58 Absolute Eosinophils 0.97 H Absolute Basophils 0.07 PT 10.7 INR 1.1 APTT 24.3 Sodium 135 L Potassium 4.3 Chloride 98 Carbon Dioxide 25.3 Anion Gap 11.7 H BUN 32 H Creatinine 1.8 H Est GFR (CKD-EPI 2020) 37.12 Glucose 131 H Calcium 9.2 Magnesium 1.6 L Total Bilirubin 0.3 AST 10 L ALT 17 Alkaline Phosphatase 127 H Troponin I < 50 Total Protein 9.1 H Albumin 3.3 L TSH 0.42 Urine Color Urine Clarity Urine pH Ur Specific [place] Urine Protein Urine Ketones Urine Blood Urine Nitrite Urine Bilirubin Urine Urobilinogen Ur Leukocyte Esterase Urine RBC Urine WBC Ur Epithelial Cells Urine Crystals Urine Bacteria Urine Casts Urine Mucus Ur Culture Indicated? Urine Glucose PFSH All Active Problems (Updated 06/07/23 @ 11:40 by Emelina Sahu MD) Lung mass (Acute) Heart murmur (Chronic) Acute kidney injury superimposed on chronic kidney disease (Acute) Discharge planning issues (Acute) Hypomagnesemia (Acute) Syncope and collapse (Acute) Spinal stenosis (Acute) GERD (gastroesophageal reflux disease) (Chronic) Weight loss, abnormal (Acute) Atherosclerosis of artery of both lower extremities (Acute) Venous stasis dermatitis of both lower extremities (Acute) Aneurysm of right iliac artery (Acute) Non-healing ulcer of foot with fat layer exposed (Acute) Chronic ulcer of left lower extremity with fat layer exposed (Acute) Venous stasis ulcer of ankle (Acute) Smoker unmotivated to quit (Acute) Myocardial infarction (Acute 10/08/84) Status post carotid endarterectomy (Acute) Status post phlebectomy (Acute) Compression fracture of lumbar spine, non-traumatic (Acute) Abdominal aortic aneurysm (AAA) without rupture (Acute 05/27/16) 3.5cm 05/24 CT scan Abnormal thyroid stimulating hormone (TSH) level (Acute 06/02/17) Chronic suppressed TSH. Normal T3, T4. Anemia (Acute 06/02/17) chronic normocystic. No etiology found. Bundle branch block, unspecified (Acute) left Carotid artery stenosis (Acute) Cataract (Acute) O.D. 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 likely due to DM Psoriasis (Acute) Right rotator cuff tear (Acute 02/20/15) Smell or taste problem (Acute) Syncope and collapse (Acute) ? secondary to medications Tobacco use disorder (Acute) pipe Varicose veins of lower extremity with ulcer (Acute) [place] [facility] [place] BONE MARROW BX PROCEDURES ENDARTERECTOMY NOS left carotid LEG VEIN EXCISION, 2009 left leg; chronic venous ulcers Family History Mother Personal history of malignant neoplasm ovarian Heart disease Hyperlipidemia Father Heart disease Sister No problems noted. Sister No problems noted. Social History Smoking/Tobacco Use Status: Current every day Tobacco Type: pipe Smoking risk assessment performed?: Yes Alcohol Intake: current Alcohol Intake frequency: 0-2 drinks per day Substance use type: does not use Housing: house Current gender identity: male Do you feel safe at home: Yes Do you feel safe in your relationship?: Yes Time Spent with Patient Time Spent with Patient: 45-69 minutes Time was spent: preparing to see the patient(eg.review tests), obtaining and/or reviewing separately otained hiistory, ordering medications,tests, procedures, referring, communicating with other health urgent care physician assistant, indepentently interpreting results, counseling the patient and care coordination
--- NOTE | 2023-06-07 15:20 | PDOC.CMPRO ---
Date of service: 06/07/23 Time of Service: 15:20 Care Management Progress Note Progress Note Text Progress Note Text: Sameer was admitted into observation status last evening after a syncopal episode. He had been working outside and became dehydrated and was orthostatic. Sameer was given IVF and ruled out for ACS. He was monitored overnight and did not show any evidence of cardiac arrhythmia. He did not have any further syncopal episodes and was discharged with a cardiac event recorde this morning before CM was able to meet with him.
== END 2023-06-07 12:18 | disposition home or self-care (01) ==
LOC: ER 21:03 → MS 21:04
PROVIDERS: Admitting Provider Family Medicine; Emergency Provider Student in an Organized Health Care Education/Training Program; PCP Family Medicine; Visit Provider Family Medicine
DX: I95.1 Orthostatic hypotension (principal); N17.9 Acute kidney failure, unspecified; E86.0 Dehydration; E83.42 Hypomagnesemia; I25.2 Old myocardial infarction; D64.9 Anemia, unspecified; I70.203 Unspecified atherosclerosis of native arteries of extremities, bilateral legs; N18.9 Chronic kidney disease, unspecified; R91.8 Other nonspecific abnormal finding of lung field; Z66 Do not resuscitate; F17.290 Nicotine dependence, other tobacco product, uncomplicated; I12.9 Hypertensive chronic kidney disease with stage 1 through stage 4 chronic kidney disease, or unspecified chronic kidney disease; I25.10 Atherosclerotic heart disease of native coronary artery without angina pectoris; I34.0 Nonrheumatic mitral (valve) insufficiency; I65.29 Occlusion and stenosis of unspecified carotid artery
CPT/HCPCS: 36415; 80048; 80053; 82962; 93005; 93270; 96361; 96365; 96366; 99285; 71046; 81003; 81015; 83735; 84443; 84484; 85025; 85610; 85730; 93010; 99222; 99239; G0378; J3475

== ENCOUNTER 2023-06-23 11:18 | Outpatient (CLI) | payer MEDICARE, SELFPAY ==
--- NOTE | 2023-06-23 12:05 | W.CARDEVENT ---
Date of service: 06/23/23 Time of Service: 12:05 Cardiac Event Recorder Referring Provider:: Marino Nieto Indications:: Syncope Cardiac Event Note: This is a cardiac event monitor ordered for syncope. Patient was monitored for a total of 3 hours and 33-minutes Rhythm and during the recording was sinus with an average heart rate of 64. No dysrhythmias were seen
== END 2023-06-23 11:19 | disposition home or self-care (01) ==
LOC: CARDOPNVT 11:18
PROVIDERS: PCP Family Medicine; Visit Provider Internal Medicine Cardiovascular Disease
DX: R55 Syncope and collapse (principal)
CPT/HCPCS: 93248

== ENCOUNTER → 2023-08-19 00:35 | Outpatient (CLI) | payer MEDICARE, SELFPAY ==
--- NOTE | 2023-08-19 07:00 | DI.US_ITS ---
Exam(s) US AAA DIAGNOSTIC EXAM: US AAA DIAGNOSTIC CLINICAL HISTORY: f/u AAA,I71.4 COMPARISON: US US AAA DIAGNOSTIC from 05/25/2020 FINDINGS: Abdominal Aorta: Proximal: 2.6 cm Mid: 3.2 cm Distal: 3.5 cm Iliacs: Right: 2.4 cm Left: 1.7 cm IMPRESSION: 3.5 centimeter distal abdominal aortic aneurysm. Stable from prior given measurement error. 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 Stable from prior given measurement error. DATA REPOSITORY:
== END ==
PROVIDERS: PCP Family Medicine; Visit Provider Family Medicine
DX: I71.40 Abdominal aortic aneurysm, without rupture, unspecified (principal)
CPT/HCPCS: 76775

== ENCOUNTER 2024-08-09 01:34 | Outpatient (CLI) | payer MEDICARE, SELFPAY ==
--- NOTE | 2024-08-09 07:15 | DI.US_ITS ---
Exam(s) US AAA DIAGNOSTIC EXAM: US AAA DIAGNOSTIC CLINICAL HISTORY: reassess aneurysms,aneursym iliac artery,aaa,I72.3,I71.40 COMPARISON: US US AAA DIAGNOSTIC from 08/19/2023 FINDINGS: Abdominal Aorta: Proximal: The most proximal portion of the abdominal aorta cannot be visualized due to overlying bowel. 2.6 x 3.0 cm Mid: 3.3 x 4.0 cm Distal: 2.7 x 3.0 cm Iliac's: Right: 2.4 x 2.3 cm Left: 1.6 x 1.7 cm Atherosclerotic calcification is present. IMPRESSION: There is again seen an abdominal aortic aneurysm measuring up to 4 cm in diameter. This has shown so me increase in size compared to the prior examination from 08/19/2023. CT scan of the abdomen and pe lvis may be useful for better characterization of the abdominal aortic aneurysm. DATA REPOSITORY:
== END 2024-08-09 01:54 ==
LOC: DI 01:35
PROVIDERS: PCP Family Medicine; Visit Provider Family Medicine
DX: I72.3 Aneurysm of iliac artery (principal)
CPT/HCPCS: 76775

== ENCOUNTER 2024-12-05 14:48 | Outpatient (REF) | payer MEDICARE, SELFPAY ==
[2024-12-05 21:15] LABS: Abs Immature Grans 0.03 10^3/uL (0.0-0.06); Absolute Basophil Count 0.05 10^3/uL (0.0-0.2); Absolute Eosinophil Count 0.57 10^3/uL (0.0-0.7); Absolute Lymphocyte Count 0.76 10^3/uL (1.2-3.4); Absolute Monocyte Count 0.37 10^3/uL (0.1-0.8); Absolute Neutrophil Count 4.26 10^3/uL (1.2-6.7); Basophils % 0.8 %; Eosinophils % 9.4 %; HCT 30.8 % (40.0-50.0); HGB 9.7 g/dL (13.5-17.5); Immature Grans % 0.5 %; Lymphocytes % 12.6 %; MCH 30.1 pg (27.0-33.0); MCHC 31.5 % (32.0-36.0); MCV 96 fL (80-95); MPV 12.3 fL (8.0-11.0); Monocytes % 6.1 %; Neutrophils % 70.6 %; Platelet Count 191 10^3/uL (130-400); RBC 3.22 10^6/uL (4.36-5.78); RDW 14.5 % (11.8-14.1); RDW-SD 49.6 fL; WBC 6.04 10^3/uL (4.4-10.8)
[2024-12-05 22:04] LABS: ALT 14 U/L (16-63); AST 9 U/L (15-37); Alkaline Phosphatase 63 U/L (46-116); Anion Gap 15.6 mmol/L (3-11); Bilirubin, Total 0.27 mg/dL (0.2-1.0); CO2 17.4 mmol/L (21.0-32.0); Calcium 9.5 mg/dL (8.5-10.1); Chloride 106 mmol/L (98-107); Glucose 103 mg/dL (74-106); Sodium 139 mmol/L (136-145); TSH (W/Ref FT4) 0.13 uIU/mL (0.36-3.74); Total Protein 9.2 g/dL (6.4-8.2); Vitamin B12 284 pg/mL (193-986)
[2024-12-05 22:24] LABS: Estimated GFR 7.18 (mL/min/1.73m2)
[2024-12-05 22:34] LABS: Iron 75 ug/dL (65-175); Total Iron Binding Capacity 182 ug/dL (250-450)
[2024-12-05 23:37] LABS: Ferritin 1233 ng/mL (26-388)
[2024-12-05 23:41] LABS: BUN 115 mg/dL (7-18)
[2024-12-05 23:42] LABS: Potassium 6.1 mmol/L (3.5-5.1)
[2024-12-05 23:44] LABS: FREE T4 1.17 ng/dL (0.76-1.46)
[2024-12-07 09:56] LABS: Transferrin 144 mg/dL (201-352)
== END 2024-12-05 14:49 | disposition home or self-care (01) ==
LOC: LBN 14:48
PROVIDERS: PCP Nurse Practitioner Family; Visit Provider Nurse Practitioner Family
DX: R23.2 Flushing (principal); R23.1 Pallor
CPT/HCPCS: 80053; 82607; 82728; 83540; 83550; 84439; 84443; 84466; 85025

== ENCOUNTER 2024-12-06 11:32 | Inpatient (IN) | payer MEDICARE, SELFPAY ==
[2024-12-06] VITALS (21 sets, daily range): BP systolic 121–156; BP diastolic 50–68; PULSE 61–95; RESP 19–20; TEMP 36.6; O2SAT 92–99
--- NOTE | 2024-12-06 12:00 | RT.EKG_ITS ---
APPROVED REPORT Exam: Resting ECG Reason for Exam: Electrolyte abnormalities Patient Location: E HR:58 bpm ECG Measurements Heart Rate 58 AXIS DC 206 P -9 QRSd 137 QRS 20 QT 426 T 99 QTc 419 Conclusion Sinus bradycardia, rate 58 LBBB present on prior EKGs Sgarbosa negative
[2024-12-06 12:30] LABS: Abs Immature Grans 0.02 10^3/uL (0.0-0.06); Absolute Basophil Count 0.04 10^3/uL (0.0-0.2); Absolute Eosinophil Count 0.57 10^3/uL (0.0-0.7); Absolute Lymphocyte Count 0.56 10^3/uL (1.2-3.4); Absolute Monocyte Count 0.33 10^3/uL (0.1-0.8); Absolute Neutrophil Count 4.87 10^3/uL (1.2-6.7); Basophils % 0.6 %; Eosinophils % 8.9 %; HCT 32.5 % (40.0-50.0); HGB 10.2 g/dL (13.5-17.5); Immature Grans % 0.3 %; Lymphocytes % 8.8 %; MCH 29.9 pg (27.0-33.0); MCHC 31.4 % (32.0-36.0); MCV 95 fL (80-95); MPV 11.9 fL (8.0-11.0); Monocytes % 5.2 %; Neutrophils % 76.2 %; Platelet Count 187 10^3/uL (130-400); RBC 3.41 10^6/uL (4.36-5.78); RDW 14.5 % (11.8-14.1); RDW-SD 49.4 fL; WBC 6.39 10^3/uL (4.4-10.8)
[2024-12-06 12:47] LABS: ALT 17 U/L (16-63); AST 8 U/L (15-37); Alkaline Phosphatase 67 U/L (46-116); Anion Gap 12.3 mmol/L (3-11); Bilirubin, Total 0.31 mg/dL (0.2-1.0); CO2 18.7 mmol/L (21.0-32.0); Calcium 9.8 mg/dL (8.5-10.1); Chloride 108 mmol/L (98-107); Creatine Kinase 34 U/L (39-308); Estimated GFR 7.44 (mL/min/1.73m2); Glucose 105 mg/dL (74-106); Magnesium 2.1 mg/dL (1.8-2.4); Potassium 5.8 mmol/L (3.5-5.1); Sodium 139 mmol/L (136-145); Total Protein 9.6 g/dL (6.4-8.2); Troponin I 53 ng/L (<or=76)
[2024-12-06 12:52] LABS: BUN 112 mg/dL (7-18); CREATININE 6.8 mg/dL (0.70-1.30)
[2024-12-06 14:55] LABS: Troponin I 57 ng/L (<or=76)
--- NOTE | 2024-12-06 15:15 | DI.US_ITS ---
Exam(s) US RENAL EXAM: US RENAL CLINICAL HISTORY: renal failure TECHNIQUE: Ultrasound of both kidneys performed using standard protocol. COMPARISON: US POCUS EXAM from 12/06/2024 FINDINGS: RIGHT KIDNEY: Measures 10.4 cm in length. No cysts evident. Normal cortical thickness and corticomedullary differen tiation .No solid masses No intrarenal calculi nor hydronephrosis. LEFT KIDNEY: Measures 11.6 cm in length. No cysts evident. Normal cortical thickness and corticomedullary differe ntiaion. No solids masses. No intrarenal calculi nor hydonephrosis. URINARY BLADDER: Urinary bladder was empty and therefore not able to be studied. Incidentally noted is previously documented abdominal aortic aneurysm. Maximum diameter on these rigo ges is 3.9 cm, similar to prior ultrasound examination of 08/09/2024. IMPRESSION: 1. No significant ultrasound findings in the kidneys. No hydronephrosis. 2. Urinary bladder empty and therefore not able to be studied. Abdominal aortic aneurysm maximum diameter 3.9 cm, similar to prior ultrasound study of 08/09/2024 DATA REPOSITORY:
[2024-12-06 15:21] LABS: Bilirubin Negative (Negative); Blood Negative (Negative); Clarity Sl Cloudy (Clear); Glucose Negative (Negative); Ketones Negative (Negative); Leukocyte Esterase Negative (Negative); Nitrite Negative (Negative); Urobilinogen 0.2 mg/dL (Up to 0.2); pH 5.5 (5-8)
[2024-12-06 15:33] LABS: Epithelial Cells Rare HPF (Negative); Other Cells Negative (Negative); RBC Negative HPF (0-2); WBC Negative HPF (0-5)
[2024-12-06 15:34] LABS: Bacteria Few HPF (Negative); C & S Indicated? No; Casts Negative LPF (Negative); Crystals Many Amorphous HPF (Negative); Mucus Moderate (Negative)
[2024-12-06] MEDS: Lactated Ringers 500 ML IV (15:55)
--- NOTE | 2024-12-06 16:13 | W.ED.GENAD ---
Discharge Plan Discharge Details Chief Complaint: Recheck Clinical Impression: Acute renal failure, Hyperlipidemia, Essential hypertension, Abdominal aortic aneurysm (AAA) without rupture Primary Care Provider: Stanislaw Glez ED Provider: Evan Bartlett [place] Meds and New Rx's Prescriptions: No Action silver sulfadiazine [Silvadene] 1 % cream 1 applic Topical DAILY PRN (Reason: wound healing) Qty: 50 6RF triamcinolone acetonide 0.1 % ointment 1 applic Topical BID PRN (Reason: stasis ulcer) Qty: 453.6 2RF triamcinolone acetonide 0.5 % cream 1 applic Topical BID Qty: 45 3RF Rx Instructions: Use on affected area that is about 3 inches in diameter amlodipine 2.5 mg tablet 2.5 mg PO DAILY Qty: 90 3RF Patient Comments: TAKE 1 TABLET BY MOUTH DAILY lisinopril [Zestril] 20 mg tablet 20 mg PO DAILY Qty: 90 3RF metoprolol tartrate 50 mg tablet 25 mg PO BID Qty: 90 3RF pravastatin 20 mg tablet 20 mg PO DAILY Qty: 90 3RF omeprazole 20 mg capsule,delayed release(DR/EC) 20 mg PO DAILY PRN (Reason: acid reflux) Qty: 60 6RF aspirin 81 MG tablet,chewable 1 tab PO DAILY Patient Comments: 06/08/18 restarted. romeo 04/21/18 not taking. valacyclovir 1 gram tablet 1,000 mg PO ONCE Patient Comments: TAKE ONE TABLET BY MOUTH THREE TIMES A DAY HPI General Mode of arrival: ambulatory. Date/Time Provider Initiated Documentation: 12/06/24 11:47. Limitations to Documentation: no limitations. Information obtained by: patient, family and old records reviewed. HPI Narrative: HPI: This is an 84-year-old male patient with a past medical history significant for CKD, CAD, AAA without rupture, hypertension and hyperlipidemia who is presenting for evaluation of renal failure. The patient had laboratory studies done as an outpatient yesterday which demonstrated a new elevation in his BUN and creatinine to 120 and 7 respectively. The patient reports that he himself has felt totally normal, with no recent fevers or chills, difficulty maintaining his oral intake, and without changes in his urinary habits. The patient reports that he did have shingles recently and has been taking his valacyclovir, and has had some diarrhea though he has been drinking more water to compensate. He states that he feels like he is emptying completely when he goes to the bathroom. Has not been taking excessive ibuprofen. Denies abdominal pain. Has baseline back pain that he has had for 5 years since an injury, denies new flank pain. Exam: Gen: Awake and alert, in no apparent distress HEENT: Non-icteric sclera Neck: Supple Lungs: No apparent respiratory distress, normal respiratory effort. Lung sounds clear and equal, no hypoxia CV: Appears well perfused, strong distal pulses Abdomen: Non-distended, soft, nontender, without palpable bladder, rigidity, rebound, or guarding MSK: Moves 4 extremities without apparent limitation in ROM. No peripheral edema Skin: Visualized skin without rashes, cyanosis. Neuro: Normal Gait, no obvious focal deficits or facial asymmetry. Speaks in full, clear sentences. Psych: Appropriate for situation. MDM: This is an 84-year-old male patient presenting for evaluation of new onset renal failure. My differential includes but is not limited to prerenal azotemia, certainly considered medication effect, AIN, ATN. I considered postobstructive renal failure, including renal stones, BPH. Considered metabolic and electrolyte derangements. We will obtain laboratory studies to include CBC, CMP, magnesium, troponin, urinalysis. I did perform a bedside ultrasound, images saved and demographics manually entered, which did not show any significant bladder dilation, nor hydronephrosis. The patient will be sent for formal ultrasound. Will hold on CT scan given his renal failure. ED Course: The patient voided, and postvoid residual was 100. 500 cc IV fluids provided for rehydration. Reviewed his labs, which show no leukocytosis, mild anemia to 10.2 and no thrombocytopenia. Chemistry panel with a potassium of 5.8, EKG with a normal sinus rhythm and no evidence for peaked T waves, QRS widening above baseline, or bradycardia. BUN 112, creatinine 6.8, no liver dysfunction. CK is low at 34, troponin 56 and 57 without significant delta change suggestive of ischemia. UA is noninfectious and with no hematuria. Formal ultrasound without significant abnormality, evidence of hydronephrosis to suggest obstruction. I reached out to [facility] and they are unfortunately at capacity and cannot accept this patient for transfer. I signed out care of this patient to the oncoming provider prior to final disposition. Jeana Rojas MD Related Data Home Medications ?Medication ?Instructions ?Recorded ?Confirmed aspirin 81 mg chewable tablet 1 tab PO DAILY 03/16/18 12/06/24 triamcinolone acetonide 0.1 % 1 applic topical BID PRN stasis 02/26/21 12/06/24 topical ointment ulcer #453.6 grams silver sulfadiazine 1 % topical 1 applic topical DAILY PRN wound 03/18/22 12/06/24 cream (Silvadene) healing #50 grams triamcinolone acetonide 0.5 % 1 applic topical BID psoriasis #45 09/23/22 12/06/24 topical cream grams amlodipine 2.5 mg tablet 2.5 mg PO DAILY #90 tabs 06/13/24 12/06/24 lisinopril 20 mg tablet (Zestril) 20 mg PO DAILY #90 tab-caps 06/13/24 12/06/24 metoprolol tartrate 50 mg tablet 25 mg (1/2 x 50 mg) PO BID #90 tabs 06/13/24 12/06/24 pravastatin 20 mg tablet 20 mg PO DAILY #90 tabs 06/13/24 12/06/24 omeprazole 20 mg capsule,delayed 20 mg PO DAILY PRN acid reflux #60 09/26/24 12/06/24 release caps valacyclovir 1 gram tablet 1,000 mg PO ONCE 12/06/24 12/06/24 Previous Rx's ?Medication ?Instructions ?Recorded triamcinolone acetonide 0.1 % 1 applic topical BID PRN stasis 02/26/21 topical ointment ulcer #453.6 grams silver sulfadiazine 1 % topical 1 applic topical DAILY PRN wound 03/18/22 cream (Silvadene) healing #50 grams triamcinolone acetonide 0.5 % 1 applic topical BID psoriasis #45 09/23/22 topical cream grams amlodipine 2.5 mg tablet 2.5 mg PO DAILY #90 tabs 06/13/24 lisinopril 20 mg tablet (Zestril) 20 mg PO DAILY #90 tab-caps 06/13/24 metoprolol tartrate 50 mg tablet 25 mg (1/2 x 50 mg) PO BID #90 tabs 06/13/24 pravastatin 20 mg tablet 20 mg PO DAILY #90 tabs 06/13/24 omeprazole 20 mg capsule,delayed 20 mg PO DAILY PRN acid reflux #60 09/26/24 release caps Allergies Allergy/AdvReac Type Severity Reaction Status Date / Time cephalexin (From Keflex) AdvReac Intermediate Pt noted Verified 12/06/24 11:49 severe abdominal discomfort It was unreal General Stated Complaint: Recheck FLOR: 4 Course Vital Signs Vital signs: Vital Signs Temperature 36.6 C 12/06/24 11:50 Pulse 62 12/06/24 11:50 Respiratory Rate 19 12/06/24 11:50 Blood Pressure 121/68 12/06/24 11:50 Pulse Oximetry 95 12/06/24 11:50 Temperature 36.6 C 12/06/24 11:50 Temperature Source Oral 12/06/24 11:50 Pulse 62 12/06/24 11:50 Respiratory Rate 19 12/06/24 11:50 Blood Pressure 121/68 12/06/24 11:50 Blood Pressure Position Sitting 12/06/24 11:50 Pulse Oximetry 95 12/06/24 11:50 Oxygen Delivery Method Room Air 12/06/24 11:50 Oxygen Flow Rate 0 12/06/24 11:50 Pain Level 0 12/06/24 11:50 Lab/Test Results Lab/Test Results: Laboratory Tests Range/Units 12/06/24 12/06/24 12/06/24 12:02 14:29 15:10 WBC (4.4-10.8) 10^3/uL 6.39 RBC (4.36-5.78) 10^6/uL 3.41 L Hgb (13.5-17.5) g/dL 10.2 L Hct (40.0-50.0) % 32.5 L MCV (80-95) fL 95 MCH (27.0-33.0) pg 29.9 MCHC (32.0-36.0) % 31.4 L RDW (11.8-14.1) % 14.5 H Plt Count (130-400) 10^3/uL 187 MPV (8.0-11.0) fL 11.9 H Immature Gran % % 0.3 Neutrophils % % 76.2 Lymphocytes % % 8.8 Monocytes % % 5.2 Eosinophils % % 8.9 Basophils % % 0.6 Nucleated RBC % (0.0-0.3) % 0.0 Absolute Neutrophils (1.2-6.7) 10^3/uL 4.87 Absolute Lymphocytes (1.2-3.4) 10^3/uL 0.56 L Absolute Monocytes (0.1-0.8) 10^3/uL 0.33 Absolute Eosinophils (0.0-0.7) 10^3/uL 0.57 Absolute Basophils (0.0-0.2) 10^3/uL 0.04 Sodium (136-145) mmol/L 139 Potassium (3.5-5.1) mmol/L 5.8 H Chloride (98-107) mmol/L 108 H Carbon Dioxide (21.0-32.0) mmol/L 18.7 L Anion Gap (3-11) mmol/L 12.3 H BUN (7-18) mg/dL 112 H* Creatinine (0.70-1.30) mg/dL 6.8 H* Est GFR (CKD-EPI 2020) (mL/min/1.73m2) 7.44 Glucose (74-106) mg/dL 105 Calcium (8.5-10.1) mg/dL 9.8 Magnesium (1.8-2.4) mg/dL 2.1 Total Bilirubin (0.2-1.0) mg/dL 0.31 AST (15-37) U/L 8 L ALT (16-63) U/L 17 Alkaline Phosphatase (46-116) U/L 67 Creatine Kinase (39-308) U/L 34 L Troponin I (<or=76) ng/L 53 57 Total Protein (6.4-8.2) g/dL 9.6 H Albumin (3.4-5.0) g/dL 3.0 L Urine Color (Yellow) Yellow Urine Clarity (Clear) Sl Cloudy Urine pH (5-8) 5.5 Ur Specific [place] (1.005-1.025) 1.020 Urine Protein (Neg-Trace) mg/dL 100 H Urine Ketones (Negative) mg/dL Negative Urine Blood (Negative) Negative Urine Nitrite (Negative) Negative Urine Bilirubin (Negative) Negative Urine Urobilinogen (Up to 0.2) mg/dL 0.2 Ur Leukocyte Esterase (Negative) Negative Urine RBC (0-2) HPF Negative Urine WBC (0-5) HPF Negative Ur Epithelial Cells (Negative) HPF Rare Urine Crystals (Negative) HPF Many Amorphous Urine Bacteria (Negative) HPF Few Urine Casts (Negative) LPF Negative Urine Mucus (Negative) Moderate Urine Other (Negative) Negative Ur Culture Indicated? No Urine Glucose (Negative) mg/dL Negative Range/Units 12/06/24 15:24 WBC (4.4-10.8) 10^3/uL RBC (4.36-5.78) 10^6/uL Hgb (13.5-17.5) g/dL Hct (40.0-50.0) % MCV (80-95) fL MCH (27.0-33.0) pg MCHC (32.0-36.0) % RDW (11.8-14.1) % Plt Count (130-400) 10^3/uL MPV (8.0-11.0) fL Immature Gran % % Neutrophils % % Lymphocytes % % Monocytes % % Eosinophils % % Basophils % % Nucleated RBC % (0.0-0.3) % Absolute Neutrophils (1.2-6.7) 10^3/uL Absolute Lymphocytes (1.2-3.4) 10^3/uL Absolute Monocytes (0.1-0.8) 10^3/uL Absolute Eosinophils (0.0-0.7) 10^3/uL Absolute Basophils (0.0-0.2) 10^3/uL Sodium (136-145) mmol/L Potassium (3.5-5.1) mmol/L Chloride (98-107) mmol/L Carbon Dioxide (21.0-32.0) mmol/L Anion Gap (3-11) mmol/L BUN (7-18) mg/dL Creatinine (0.70-1.30) mg/dL Est GFR (CKD-EPI 2020) (mL/min/1.73m2) Glucose (74-106) mg/dL Calcium (8.5-10.1) mg/dL Magnesium (1.8-2.4) mg/dL Total Bilirubin (0.2-1.0) mg/dL AST (15-37) U/L ALT (16-63) U/L Alkaline Phosphatase (46-116) U/L Creatine Kinase (39-308) U/L Troponin I (<or=76) ng/L Cancelled Total Protein (6.4-8.2) g/dL Albumin (3.4-5.0) g/dL Urine Color (Yellow) Urine Clarity (Clear) Urine pH (5-8) Ur Specific [place] (1.005-1.025) Urine Protein (Neg-Trace) mg/dL Urine Ketones (Negative) mg/dL Urine Blood (Negative) Urine Nitrite (Negative) Urine Bilirubin (Negative) Urine Urobilinogen (Up to 0.2) mg/dL Ur Leukocyte Esterase (Negative) Urine RBC (0-2) HPF Urine WBC (0-5) HPF Ur Epithelial Cells (Negative) HPF Urine Crystals (Negative) HPF Urine Bacteria (Negative) HPF Urine Casts (Negative) LPF Urine Mucus (Negative) Urine Other (Negative) Ur Culture Indicated? Urine Glucose (Negative) mg/dL Medical Decision Making Quality:SDOH Health Related Social Needs: No Data to Display PFSH All Active Problems (Updated 12/06/24 @ 17:03 by Jeana Rojas MD) Acute renal failure (Acute) Shingles (Acute) Venous ulcer of left leg (Acute) Lung mass (Acute) Heart murmur (Chronic) Acute kidney injury superimposed on chronic kidney disease (Acute) Hypomagnesemia (Acute) Syncope and collapse (Acute) Spinal stenosis (Acute) GERD (gastroesophageal reflux disease) (Chronic) Weight loss, abnormal (Acute) Atherosclerosis of artery of both lower extremities (Acute) Venous stasis dermatitis of both lower extremities (Acute) Aneurysm of right iliac artery (Acute) Non-healing ulcer of foot with fat layer exposed (Acute) Chronic ulcer of left lower extremity with fat layer exposed (Acute) Venous stasis ulcer of ankle (Acute) Smoker unmotivated to quit (Acute) Myocardial infarction (Acute 10/08/84) Status post carotid endarterectomy (Acute) Status post phlebectomy (Acute) Compression fracture of lumbar spine, non-traumatic (Acute) Abdominal aortic aneurysm (AAA) without rupture (Acute 05/27/16) 3.5cm 05/24 CT scan Abnormal thyroid stimulating hormone (TSH) level (Acute 06/02/17) Chronic suppressed TSH. Normal T3, T4. Anemia (Acute 06/02/17) chronic normocystic. No etiology found. Bundle branch block, unspecified (Acute) left Carotid artery stenosis (Acute) Cataract (Acute) O.D. 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 likely due to DM Psoriasis (Acute) Right rotator cuff tear (Acute 02/20/15) Smell or taste problem (Acute) Syncope and collapse (Acute) ? 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 Sister No problems noted. Social History Smoking/Tobacco Use Status: Current every day Tobacco Type: pipe Smoking risk assessment performed?: Yes Alcohol Intake: current Alcohol Intake frequency: 0-2 drinks per day Substance use type: does not use Housing: house Current gender identity: male Do you feel safe at home: Yes Do you feel safe in your relationship?: Yes
[2024-12-06] MEDS: Lactated Ringers 1,000 ML 150 ML IV (17:55)
[2024-12-06] MEDS: Sodium Zirconium Cyclosilicate 10 GM PKT PO (17:55)
--- NOTE | 2024-12-06 19:04 | ED.PROG_ITS ---
Date of service: 12/06/24 Time of Service: 19:05 Medical Decision Making Patient signed out to me pending nephrology consult. I reached out to [facility] nephrology spoke with Dr. Cook who reviewed the case and lab work and did not feel patient required transfer to their facility for dialysis as he has been making urine. He did recommend IV hydration with lactated Ringer's and can give Lokelma for the potassium and recheck that tonight. He recommended repeating BMP tomorrow. They can be reconsulted if clinical picture appears to be worsening but is likely ATN and also likely component of dehydration and being on lisinopril. Spoke with the hospitalist who plans to admit. Quality:[facility] Health Related Social Needs: No Data to Display Discharge Plan Disposition Patient Disposition: Admit to [facility] Condition: Stable Discharge Details Chief Complaint: Recheck Clinical Impression: Acute renal failure, Hyperlipidemia, Essential hypertension Primary Care Provider: Stanislaw Glez ED Provider: Evan Bartlett Home Meds and New Rx's Prescriptions: No Action silver sulfadiazine [Silvadene] 1 % cream 1 applic Topical DAILY PRN (Reason: wound healing) Qty: 50 6RF triamcinolone acetonide 0.1 % ointment 1 applic Topical BID PRN (Reason: stasis ulcer) Qty: 453.6 2RF triamcinolone acetonide 0.5 % cream 1 applic Topical BID Qty: 45 3RF Rx Instructions: Use on affected area that is about 3 inches in diameter amlodipine 2.5 mg tablet 2.5 mg PO DAILY Qty: 90 3RF Patient Comments: TAKE 1 TABLET BY MOUTH DAILY lisinopril [Zestril] 20 mg tablet 20 mg PO DAILY Qty: 90 3RF metoprolol tartrate 50 mg tablet 25 mg PO BID Qty: 90 3RF pravastatin 20 mg tablet 20 mg PO DAILY Qty: 90 3RF omeprazole 20 mg capsule,delayed release(DR/EC) 20 mg PO DAILY PRN (Reason: acid reflux) Qty: 60 6RF aspirin 81 MG tablet,chewable 1 tab PO DAILY Patient Comments: 06/08/18 restarted. romeo 04/21/18 not taking. valacyclovir 1 gram tablet 1,000 mg PO ONCE Patient Comments: TAKE ONE TABLET BY MOUTH THREE TIMES A DAY
--- NOTE | 2024-12-06 19:34 | HPE_ITS ---
Date of service: 12/06/24 Time of Service: 19:34 Assessment and Plan Assessment and plan (1) Acute renal failure: Start date: 12/06/24 Status: Acute Assessment and plan: This is an 84-year-old gentleman who has CKD but recently with placed on acyclovir for 2 weeks for shingles outbreak over his scalp and was already on lisinopril which may have prompted acute renal failure. [facility] nephrology thinks this may be ATN and medication related along with some dehydration the patient not eating and drinking well while he had shingles for 2 weeks. Lisinopril will be held and patient is already off acyclovir. IV hydration with lactated Ringer's per [facility] nephrology. Follow-up renal panel every 6 hours and reconsult [facility] nephrology if not improving with hydration. Patient is a DNR/DNI. (2) Dehydration: Status: Acute Assessment and plan: Recent illness with decreased intake and nephrotoxic meds. IV hydration with lactated Ringer's and follow-up lab closely. Watch for fluid overload. (3) Shingles: Start date: 12/06/24 Status: Acute Assessment and plan: This occurred 2 weeks ago and is clearing the patient now off acyclovir. (4) Essential hypertension: Status: Chronic Assessment and plan: Hold lisinopril but continue other antihypertensives while hospitalized. Adjust as needed. (5) GERD (gastroesophageal reflux disease): Status: Chronic Assessment and plan: Continue PPI. (6) Smoker unmotivated to quit: Status: Chronic Assessment and plan: Patient smokes a pipe. Offer nicotine patch if needed during the hospital stay. History of Present Illness History of Present Illness Chief Complaint: Abnormal labs as an outpatient sent for evaluation. Narrative: This is an 84-year-old male patient who recently has been on acyclovir for 2 weeks for shingles outbreak over his scalp which is just clearing and also is chronically on lisinopril with CKD having a baseline creatinine around 1.4, not recently checked. He had lab done the day before admission with his creatinine being elevated at 7, prompting the patient being sent to the ED for evaluation. He states that he has been slightly fatigued recently but has basically felt normal without acute symptoms. With his recent shingles and initiation of acyclovir and being on lisinopril, nephrology in consultation from [facility] thought that this may be a drug-induced acute renal failure along with possible slight dehydration with patient not eating and drinking as well recently because of his shingles outbreak. They recommended IV hydration with lactated Ringer's and Lokelma for hyperkalemia if needed as well as follow-up renal panel in the morning with reconsultation if not improving with IV hydration and with holding the possible nephrotoxic medication. There are no other obvious precipitants for patient's acute renal failure and patient is not currently seeing nephrology or on dialysis. He is a DNR/DNI by record. Review of Systems Narrative: 13 point review of systems otherwise unrevealing or stable. [facility] All Active Problems (Updated 12/06/24 @ 19:49 by Herb Miller) Acute renal failure (Acute) Shingles (Acute) Venous ulcer of left leg (Acute) Lung mass (Acute) Heart murmur (Chronic) Acute kidney injury superimposed on chronic kidney disease (Acute) Dehydration (Acute) Hypomagnesemia (Acute) Syncope and collapse (Acute) Spinal stenosis (Acute) GERD (gastroesophageal reflux disease) (Chronic) Weight loss, abnormal (Acute) Atherosclerosis of artery of both lower extremities (Acute) Venous stasis dermatitis of both lower extremities (Acute) Aneurysm of right iliac artery (Acute) Non-healing ulcer of foot with fat layer exposed (Acute) Chronic ulcer of left lower extremity with fat layer exposed (Acute) Venous stasis ulcer of ankle (Acute) Smoker unmotivated to quit (Chronic) Myocardial infarction (Acute 10/08/84) Status post carotid endarterectomy (Acute) Status post phlebectomy (Acute) Compression fracture of lumbar spine, non-traumatic (Acute) Abdominal aortic aneurysm (AAA) without rupture (Acute 05/27/16) 3.5cm 05/24 CT scan Abnormal thyroid stimulating hormone (TSH) level (Acute 06/02/17) Chronic suppressed TSH. Normal T3, T4. Anemia (Acute 06/02/17) chronic normocystic. No etiology found. Bundle branch block, unspecified (Acute) left Carotid artery stenosis (Acute) Cataract (Acute) O.D. 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 likely due to DM Psoriasis (Acute) Right rotator cuff tear (Acute 02/20/15) Smell or taste problem (Acute) Syncope and collapse (Acute) ? 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 [place]; [place] [place] Family History Mother Personal history of malignant neoplasm ovarian Heart disease Hyperlipidemia Father Heart disease Sister No problems noted. Sister No problems noted. Social History Smoking/Tobacco Use Status: Current every day Tobacco Type: pipe Smoking risk assessment performed?: Yes Alcohol Intake: current Alcohol Intake frequency: 0-2 drinks per day Substance use type: does not use Housing: house Current gender identity: male Do you feel safe at home: Yes Do you feel safe in your relationship?: Yes Meds Allergies and Home Medications Allergies Allergy/AdvReac Type Severity Reaction Status Date / Time cephalexin (From Keflex) AdvReac Intermediate Pt noted Verified 12/06/24 11:49 severe abdominal discomfort It was unreal Home Medications ?Medication ?Instructions ?Recorded ?Confirmed ?Type aspirin 81 mg chewable tablet 1 tab PO DAILY 03/16/18 12/06/24 History triamcinolone acetonide 0.1 % 1 applic topical BID PRN stasis 02/26/21 12/06/24 Rx topical ointment ulcer #453.6 grams silver sulfadiazine 1 % topical 1 applic topical DAILY PRN wound 03/18/22 12/06/24 Rx cream (Silvadene) healing #50 grams triamcinolone acetonide 0.5 % 1 applic topical BID psoriasis #45 09/23/22 12/06/24 Rx topical cream grams amlodipine 2.5 mg tablet 2.5 mg PO DAILY #90 tabs 06/13/24 12/06/24 Rx lisinopril 20 mg tablet (Zestril) 20 mg PO DAILY #90 tab-caps 06/13/24 12/06/24 Rx metoprolol tartrate 50 mg tablet 25 mg (1/2 x 50 mg) PO BID #90 tabs 06/13/24 12/06/24 Rx pravastatin 20 mg tablet 20 mg PO DAILY #90 tabs 06/13/24 12/06/24 Rx omeprazole 20 mg capsule,delayed 20 mg PO DAILY PRN acid reflux #60 09/26/24 12/06/24 Rx release caps valacyclovir 1 gram tablet 1,000 mg PO ONCE 12/06/24 12/06/24 History Exam Narrative Exam Narrative: General: Patient appears appropriate for age, in no acute distress, alert and oriented x 3 and lying comfortably in bed when approached. He is hard of hearing. HEENT: Normocephalic, eyes with pupils equal and reactive light symmetrically, extraocular movement intact and sclera anicteric. Oropharynx with dry mucosa and poor dentition. Neck: Supple without JVD. Back: Stooped posture without CVA tenderness. Lungs: Bronchovesicular breath sounds diffusely with occasional cough, no focalizing rales or rhonchi. No expiratory wheeze. Fair aeration. Heart: Distant heart sounds, regular rate and rhythm with no appreciable murmur or gallop. Abdomen: Obese contour, soft nontender to palpation with no palpable hepatosplenomegaly. Genitalia/rectal: Exam deferred. Extremity: No clubbing, cyanosis or pitting edema. Good capillary refill. Skin: Normal color, warm and dry. Dry vesicular lesions over the patient's posterior scalp with shingles lesions healing well without complications. Neuro: Cranial nerves II through XII gross intact, no focalizing motor deficits. No tremor. Psych: Normal affect and mood. No abnormal thought processes. Remote and recent memory grossly intact. Results Imaging Imaging Studies: EXAM: US RENAL Date of exam: 12/06/2024 CLINICAL HISTORY: renal failure TECHNIQUE: Ultrasound of both kidneys performed using standard protocol. COMPARISON: US POCUS EXAM from 12/06/2024 FINDINGS: RIGHT KIDNEY: Measures 10.4 cm in length. No cysts evident. Normal cortical thickness and corticomedullary differentiation .No solid masses No intrarenal calculi nor hydronephrosis. LEFT KIDNEY: Measures 11.6 cm in length. No cysts evident. Normal cortical thickness and corticomedullary differentiaion. No solids masses. No intrarenal calculi nor hydonephrosis. URINARY BLADDER: Urinary bladder was empty and therefore not able to be studied. Incidentally noted is previously documented abdominal aortic aneurysm. Maximum diameter on these images is 3.9 cm, similar to prior ultrasound examination of 08/09/2024. IMPRESSION: 1. No significant ultrasound findings in the kidneys. No hydronephrosis. 2. Urinary bladder empty and therefore not able to be studied. Abdominal aortic aneurysm maximum diameter 3.9 cm, similar to prior ultrasound study of 08/09/2024 Labs 12/06/24 12:02 12/06/24 20:29 Labs: Laboratory Results - last 24 hr 12/06/24 12/06/24 12/06/24 12:02 14:29 15:10 WBC 6.39 RBC 3.41 L Hgb 10.2 L Hct 32.5 L MCV 95 MCH 29.9 MCHC 31.4 L RDW 14.5 H Plt Count 187 MPV 11.9 H Immature Gran % 0.3 Neutrophils % 76.2 Lymphocytes % 8.8 Monocytes % 5.2 Eosinophils % 8.9 Basophils % 0.6 Nucleated RBC % 0.0 Absolute Neutrophils 4.87 Absolute Lymphocytes 0.56 L Absolute Monocytes 0.33 Absolute Eosinophils 0.57 Absolute Basophils 0.04 Sodium 139 Potassium 5.8 H Chloride 108 H Carbon Dioxide 18.7 L Anion Gap 12.3 H BUN 112 H* Creatinine 6.8 H* Est GFR (CKD-EPI 2020) 7.44 Glucose 105 Calcium 9.8 Magnesium 2.1 Total Bilirubin 0.31 AST 8 L ALT 17 Alkaline Phosphatase 67 Creatine Kinase 34 L Troponin I 53 57 Total Protein 9.6 H Albumin 3.0 L Urine Color Yellow Urine Clarity Sl Cloudy Urine pH 5.5 Ur Specific [place] 1.020 Urine Protein 100 H Urine Ketones Negative Urine Blood Negative Urine Nitrite Negative Urine Bilirubin Negative Urine Urobilinogen 0.2 Ur Leukocyte Esterase Negative Urine RBC Negative Urine WBC Negative Ur Epithelial Cells Rare Urine Crystals Many Amorphous Urine Bacteria Few Urine Casts Negative Urine Mucus Moderate Urine Other Negative Ur Culture Indicated? No Urine Glucose Negative 12/06/24 15:24 WBC RBC Hgb Hct MCV MCH MCHC RDW Plt Count MPV Immature Gran % Neutrophils % Lymphocytes % Monocytes % Eosinophils % Basophils % Nucleated RBC % Absolute Neutrophils Absolute Lymphocytes Absolute Monocytes Absolute Eosinophils Absolute Basophils Sodium Potassium Chloride Carbon Dioxide Anion Gap BUN Creatinine Est GFR (CKD-EPI 2020) Glucose Calcium Magnesium Total Bilirubin AST ALT Alkaline Phosphatase Creatine Kinase Troponin I Cancelled Total Protein Albumin Urine Color Urine Clarity Urine pH Ur Specific [place] Urine Protein Urine Ketones Urine Blood Urine Nitrite Urine Bilirubin Urine Urobilinogen Ur Leukocyte Esterase Urine RBC Urine WBC Ur Epithelial Cells Urine Crystals Urine Bacteria Urine Casts Urine Mucus Urine Other Ur Culture Indicated? Urine Glucose Last Vital Signs Temp 36.6 C 12/06/24 11:50 Pulse 74 12/06/24 19:25 Resp 20 12/06/24 16:31 BP 143/68 H 12/06/24 19:25 Pulse Ox 99 12/06/24 19:25 Time Spent Time spent with Patient: >75 minutes Time was spent: preparing to see the patient(eg.review tests), obtaining and/or reviewing separately otained hiistory, ordering medications,tests, procedures, referring, communicating with other health manager critical care, indepentently interpreting results and care coordination
[2024-12-06 20:34] LABS: Source Nasal/Nares
[2024-12-06 20:50] LABS: Albumin 2.7 g/dL (3.4-5.0); Anion Gap 12.8 mmol/L (3-11); CO2 19.2 mmol/L (21.0-32.0); Calcium 9.3 mg/dL (8.5-10.1); Chloride 109 mmol/L (98-107); Estimated GFR 7.85 (mL/min/1.73m2); Glucose 128 mg/dL (74-106); PHOSPHORUS 4.6 mg/dL (2.6-4.7); Potassium 5.4 mmol/L (3.5-5.1); Sodium 141 mmol/L (136-145)
[2024-12-06 21:06] LABS: BUN 113 mg/dL (7-18); CREATININE 6.5 mg/dL (0.70-1.30)
[2024-12-06 21:07] LABS: COVID-19 PCR Negative (Negative)
[2024-12-07] VITALS (57 sets, daily range): BP systolic 136–188; BP diastolic 57–77; PULSE 59–87; RESP 10–34; TEMP 36.1–36.7; O2SAT 96–99
[2024-12-07] MEDS: Lactated Ringers 1,000 ML 150 ML IV ×4 (00:29→23:58)
[2024-12-07 03:28] LABS: Albumin 2.7 g/dL (3.4-5.0); Anion Gap 11.1 mmol/L (3-11); CO2 19.9 mmol/L (21.0-32.0); Calcium 9.1 mg/dL (8.5-10.1); Chloride 110 mmol/L (98-107); Estimated GFR 8.31 (mL/min/1.73m2); Glucose 93 mg/dL (74-106); PHOSPHORUS 4.7 mg/dL (2.6-4.7); Potassium 5.4 mmol/L (3.5-5.1); Sodium 141 mmol/L (136-145)
[2024-12-07 03:36] LABS: BUN 110 mg/dL (7-18); CREATININE 6.2 mg/dL (0.70-1.30)
[2024-12-07 07:51] LABS: Abs Immature Grans 0.03 10^3/uL (0.0-0.06); Absolute Basophil Count 0.04 10^3/uL (0.0-0.2); Absolute Eosinophil Count 0.79 10^3/uL (0.0-0.7); Absolute Lymphocyte Count 0.68 10^3/uL (1.2-3.4); Absolute Monocyte Count 0.42 10^3/uL (0.1-0.8); Absolute Neutrophil Count 3.86 10^3/uL (1.2-6.7); Basophils % 0.7 %; Eosinophils % 13.6 %; HCT 28.1 % (40.0-50.0); HGB 8.9 g/dL (13.5-17.5); Immature Grans % 0.5 %; Lymphocytes % 11.7 %; MCH 29.9 pg (27.0-33.0); MCHC 31.7 % (32.0-36.0); MCV 94 fL (80-95); Monocytes % 7.2 %; Neutrophils % 66.3 %; Platelet Count 137 10^3/uL (130-400); RBC 2.98 10^6/uL (4.36-5.78); RDW 14.3 % (11.8-14.1); RDW-SD 47.5 fL; WBC 5.82 10^3/uL (4.4-10.8)
[2024-12-07 08:07] LABS: Anisocytosis 1+; Diff Comment RBC Morph Reviewed
[2024-12-07 08:16] LABS: Albumin 2.5 g/dL (3.4-5.0); Anion Gap 10.5 mmol/L (3-11); CO2 18.5 mmol/L (21.0-32.0); Chloride 111 mmol/L (98-107); Estimated GFR 8.82 (mL/min/1.73m2); Glucose 99 mg/dL (74-106); PHOSPHORUS 4.3 mg/dL (2.6-4.7); Sodium 140 mmol/L (136-145)
[2024-12-07 08:27] LABS: BUN 104 mg/dL (7-18); CREATININE 5.9 mg/dL (0.70-1.30); Calcium 9.1 mg/dL (8.5-10.1)
[2024-12-07] MEDS: amLODIPine 2.5 MG TAB PO (13:38)
[2024-12-07] MEDS: Metoprolol 25 MG TAB PO ×2 (13:38→20:04)
[2024-12-07] MEDS: Aspirin 81 MG CHEW PO (13:39)
[2024-12-07] MEDS: Heparin 5,000 UNITS/ML VIAL 5000 UNITS SC ×2 (13:39→20:04)
[2024-12-07 15:03] LABS: Albumin 2.5 g/dL (3.4-5.0); Anion Gap 12.9 mmol/L (3-11); CO2 18.1 mmol/L (21.0-32.0); Calcium 9.2 mg/dL (8.5-10.1); Chloride 111 mmol/L (98-107); Estimated GFR 9.19 (mL/min/1.73m2); Glucose 96 mg/dL (74-106); Potassium 5.9 mmol/L (3.5-5.1); Sodium 142 mmol/L (136-145)
[2024-12-07 15:06] LABS: BUN 101 mg/dL (7-18); CREATININE 5.7 mg/dL (0.70-1.30)
--- NOTE | 2024-12-07 17:16 | PGE_ITS ---
Date of Service Date of service: 12/07/24 Time of Service: 17:16 Assessment and Plan Assessment and plan (1) Acute renal failure: Status: Acute Assessment and plan: CKD but recently with placed on acyclovir for 2 weeks for shingles outbreak over his scalp and was already on lisinopril which may have prompted acute renal failure. [facility] nephrology thinks this may be ATN and medication related along with some dehydration the patient not eating and drinking well while he had shingles for 2 weeks. Continue to hold Lisinopril. Acyclovir course was completed Continue IV hydration with lactated Ringer's per [facility] nephrology. Follow-up renal panel every 6 hours and reconsult [facility] nephrology if not improving with hydration. Cr at 184h - 5.6 - next @ 2200, repeat am 12/08 Down trending very slowly - touch base with [facility] nephrology 12/08 (2) Dehydration: Status: Acute Assessment and plan: Recent illness with decreased intake and nephrotoxic meds. Continue IV hydration with lactated Ringer's and follow-up lab closely. Watch for fluid overload. Hold nephrotoxic drugs (3) Shingles: Status: Acute Assessment and plan: This occurred 2 weeks ago and is clearing the patient now off acyclovir. (4) Essential hypertension: Status: Chronic Assessment and plan: Hold lisinopril but continue other antihypertensives while hospitalized. Adjust as needed. (5) GERD (gastroesophageal reflux disease): Status: Chronic Assessment and plan: Continue PPI. (6) Smoker unmotivated to quit: Status: Chronic Assessment and plan: Patient smokes a pipe. Offer nicotine patch if needed during the hospital stay. Subjective Subjective Patient reports: no new complaints Exam Narrative Exam Narrative: General: Pleasant elderly male who is FALSE PASS, sitting up comfortably in bed HEENT: EOMI, MMM Heart: RRR, +YOLANAD Lungs: CTAB except for faint expiratory wheezing Abdomen: soft, nontender, nondistended Extremities: no edema BLEs, Distal LLE is tender to palpation, and the patient does not permit an exam of the foot. Psych Mental Status: mental status grossly normal Speech and Movement: speech and movement normal Mood: congruent mood Affect: normal affect Objective Last Vital Signs Temp 36.1 C L 12/07/24 17:13 Pulse 68 12/07/24 17:13 Resp 18 12/07/24 17:13 BP 153/70 H 12/07/24 17:13 Pulse Ox 98 12/07/24 17:13 Laboratory Results - last 24 hr 12/06/24 12/07/24 12/07/24 20:29 02:23 07:45 WBC 5.82 RBC 2.98 L Hgb 8.9 L Hct 28.1 L MCV 94 MCH 29.9 MCHC 31.7 L RDW 14.3 H Plt Count 137 MPV 12.0 H Immature Gran % 0.5 Neutrophils % 66.3 Lymphocytes % 11.7 Monocytes % 7.2 Eosinophils % 13.6 Basophils % 0.7 Nucleated RBC % 0.0 Absolute Neutrophils 3.86 Absolute Lymphocytes 0.68 L Absolute Monocytes 0.42 Absolute Eosinophils 0.79 H Absolute Basophils 0.04 RBC Morphology See Below Anisocytosis 1+ Sodium 141 141 140 Potassium 5.4 H 5.4 H 6.0 H Chloride 109 H 110 H 111 H Carbon Dioxide 19.2 L 19.9 L 18.5 L Anion Gap 12.8 H 11.1 H 10.5 BUN 113 H* 110 H* 104 H* Creatinine 6.5 H* 6.2 H* 5.9 H* Est GFR (CKD-EPI 2020) 7.85 8.31 8.82 Glucose 128 H 93 99 Calcium 9.3 9.1 9.1 Phosphorus 4.6 4.7 4.3 Albumin 2.7 L 2.7 L 2.5 L COVID-19 Source Nasal/Nares SARS-CoV-2 (PCR) Negative 12/07/24 14:39 WBC RBC Hgb Hct MCV MCH MCHC RDW Plt Count MPV Immature Gran % Neutrophils % Lymphocytes % Monocytes % Eosinophils % Basophils % Nucleated RBC % Absolute Neutrophils Absolute Lymphocytes Absolute Monocytes Absolute Eosinophils Absolute Basophils RBC Morphology Anisocytosis Sodium 142 Potassium 5.9 H Chloride 111 H Carbon Dioxide 18.1 L Anion Gap 12.9 H BUN 101 H* Creatinine 5.7 H* Est GFR (CKD-EPI 2020) 9.19 Glucose 96 Calcium 9.2 Phosphorus 4.0 Albumin 2.5 L COVID-19 Source SARS-CoV-2 (PCR) PAWSS Have you Been Recently Intoxicated or Drunk Within the Last 30 days?: No Have you Ever Experienced Previous Episodes of Alcohol Withdrawal?: No Have you ever Experienced Withdrawal Seizures?: No Have you ever Experienced Delirium Tremens(DT)s?: No Have you ever undergone Alcohol Rehabilitation Treatment (i.e, inpt ot outpatient treatment programs)?: No Have you ever Experienced Blackouts?: No Have you ever Combined Alcohol with other Downers within the last 90 days?: No Have you ever Combined Alcohol with any other Substance of Abuse during the last 90 days?: No Positive Blood Alcohol level on Presentation? [PCS.BAL]: No Evidence of Increased Autonomic Activity (i.e. HR>120, tremor, sweating, agitation, nausea)?: No Result: 0 Time Spent with Patient Time Spent with Patient: 25-34 minutes Time was spent: preparing to see the patient(eg.review tests), ordering medications,tests, procedures, referring, communicating with other health rn care manager, indepentently interpreting results, counseling the patient and care coordination
[2024-12-07] MEDS: Normal Saline Flush 10 ML SYR IVP ×2 (17:21→20:07)
--- NOTE | 2024-12-07 17:39 | W.PC.ACHO ---
Registration Status: Primary Language: Preferred Language: ED Information & Data Chief Complaint Recheck 12/06/24 19:25 Chief Complaint Recheck 12/06/24 16:17 Triage Note Pt has been experiencing 12/06/24 11:50 fatigue for a couple weeks. Went to PCP for blood work, was advised to get labs redrawn here due to renal lab findings. Pt has no other complaints. Denies recent fevers, chills, muscle aches. Pt is alert and oriented X4. Does not know all of the meds he takes. Reports nothing changed from yesterday to today, just notified of kideny labs by PCP. (Last Reviewed 12/06/24 @ 19:38 by Herb Miller) PROCEDURES BIOPSY Most Recent Vital Signs Temperature 36.1 C L 12/07/24 17:13 Temperature Source Temporal Artery Scan 12/07/24 17:13 Pulse 68 12/07/24 17:13 Pulse Rhythm Regular 12/07/24 16:04 Pulse 62 12/07/24 14:50 Respiratory Rate 18 12/07/24 17:13 Respiratory Effort Normal 12/07/24 16:04 Respiratory Depth Normal 12/07/24 16:04 Respiratory Pattern Normal 12/07/24 16:04 Blood Pressure 153/70 H 12/07/24 17:13 Blood Pressure Mean 106 12/07/24 14:01 Blood Pressure Position Sitting 12/06/24 11:50 Pulse Oximetry 98 12/07/24 17:13 Oxygen Delivery Method Room Air 12/07/24 17:13 Oxygen Flow Rate 0 12/07/24 17:13 Pain Level 0 12/07/24 17:13 Comment Upon admission to unit weight taken with jeans and boots on per patient refusal to go barefoot (in socks); Patient c/o pain left inner ankle as baseline pain. 12/07/24 16:04 Allergies cephalexin (From Keflex) Adverse Reaction (Intermediate, Verified 12/06/24 11:49) Pt noted severe abdominal discomfort It was unreal Active Medications Generic Name Dose Route Start Last Admin Trade Name Freq PRN Reason Stop Dose Admin Amlodipine Besylate 2.5 mg 12/07/24 12:27 12/07/24 13:38 Amlodipine 2.5 Mg Tab PO 2.5 mg DAILY KAMALA Administration Aspirin 81 mg 12/07/24 12:27 12/07/24 13:39 Aspirin 81 Mg Chew PO 81 mg DAILY KAMALA Administration Heparin Sodium (Porcine) 5,000 units 12/07/24 12:00 12/07/24 13:39 Heparin 5,000 Units/Ml Vial SC 5,000 units Q8H KAMALA Administration Ringer's Solution 1,000 mls @ 150 mls/hr 12/06/24 17:45 12/07/24 17:23 IV 150 mls/hr INFUSION KAMALA Administration Metoprolol Tartrate 25 mg 12/07/24 12:27 12/07/24 13:38 Metoprolol 25 Mg Tab PO 25 mg BID KAMALA Administration Sodium Chloride 0 ml 12/07/24 12:27 12/07/24 17:21 Normal Saline Flush 10 Ml Syr IVP 10 ml BID KAMALA Administration IV IV Catheter Type [Right Saline Lock Antecubital] IV Catheter Gauge [Right 20 Antecubital] Diagnostics 12/07/24 12/07/24 12/07/24 Range/Units 20:00 14:39 07:45 WBC 5.82 (4.4-10.8) 10^3/uL RBC 2.98 L (4.36-5.78) 10^6/uL Hgb 8.9 L (13.5-17.5) g/dL Hct 28.1 L (40.0-50.0) % MCV 94 (80-95) fL MCH 29.9 (27.0-33.0) pg MCHC 31.7 L (32.0-36.0) % RDW 14.3 H (11.8-14.1) % Plt Count 137 (130-400) 10^3/uL MPV 12.0 H (8.0-11.0) fL Immature Gran % 0.5 % Neutrophils % 66.3 % Lymphocytes % 11.7 % Monocytes % 7.2 % Eosinophils % 13.6 % Basophils % 0.7 % Nucleated RBC % 0.0 (0.0-0.3) % Absolute Neutrophils 3.86 (1.2-6.7) 10^3/uL Absolute Lymphocytes 0.68 L (1.2-3.4) 10^3/uL Absolute Monocytes 0.42 (0.1-0.8) 10^3/uL Absolute Eosinophils 0.79 H (0.0-0.7) 10^3/uL Absolute Basophils 0.04 (0.0-0.2) 10^3/uL RBC Morphology See Below Anisocytosis 1+ Sodium Pending 142 140 (136-145) mmol/L Potassium Pending 5.9 H 6.0 H (3.5-5.1) mmol/L Chloride Pending 111 H 111 H (98-107) mmol/L Carbon Dioxide Pending 18.1 L 18.5 L (21.0-32.0) mmol/L Anion Gap Pending 12.9 H 10.5 (3-11) mmol/L BUN Pending 101 H* 104 H* (7-18) mg/dL Creatinine Pending 5.7 H* 5.9 H* (0.70-1.30) mg/dL Est GFR (CKD-EPI 2020) Pending 9.19 8.82 (mL/min/1.73m2) Glucose Pending 96 99 (74-106) mg/dL Calcium Pending 9.2 9.1 (8.5-10.1) mg/dL Phosphorus Pending 4.0 4.3 (2.6-4.7) mg/dL Albumin Pending 2.5 L 2.5 L (3.4-5.0) g/dL COVID-19 Source SARS-CoV-2 (PCR) (Negative) 12/07/24 12/06/24 Range/Units 02:23 20:29 WBC (4.4-10.8) 10^3/uL RBC (4.36-5.78) 10^6/uL Hgb (13.5-17.5) g/dL Hct (40.0-50.0) % MCV (80-95) fL MCH (27.0-33.0) pg MCHC (32.0-36.0) % RDW (11.8-14.1) % Plt Count (130-400) 10^3/uL MPV (8.0-11.0) fL Immature Gran % % Neutrophils % % Lymphocytes % % Monocytes % % Eosinophils % % Basophils % % Nucleated RBC % (0.0-0.3) % Absolute Neutrophils (1.2-6.7) 10^3/uL Absolute Lymphocytes (1.2-3.4) 10^3/uL Absolute Monocytes (0.1-0.8) 10^3/uL Absolute Eosinophils (0.0-0.7) 10^3/uL Absolute Basophils (0.0-0.2) 10^3/uL RBC Morphology Anisocytosis Sodium 141 141 (136-145) mmol/L Potassium 5.4 H 5.4 H (3.5-5.1) mmol/L Chloride 110 H 109 H (98-107) mmol/L Carbon Dioxide 19.9 L 19.2 L (21.0-32.0) mmol/L Anion Gap 11.1 H 12.8 H (3-11) mmol/L BUN 110 H* 113 H* (7-18) mg/dL Creatinine 6.2 H* 6.5 H* (0.70-1.30) mg/dL Est GFR (CKD-EPI 2020) 8.31 7.85 (mL/min/1.73m2) Glucose 93 128 H (74-106) mg/dL Calcium 9.1 9.3 (8.5-10.1) mg/dL Phosphorus 4.7 4.6 (2.6-4.7) mg/dL Albumin 2.7 L 2.7 L (3.4-5.0) g/dL COVID-19 Source Nasal/Nares SARS-CoV-2 (PCR) Negative (Negative) [id number] Documentation Fingerstick Glucose Start: 12/06/24 18:53 Freq: Status: Active Protocol: Activity Type Activity Date Activity User E-sign Co-sign Detail Recorded Client Recorded Date Recorded By Document 12/06/24 18:52 BKG DAEMON(9) [id number] 12/06/24 18:53 BKG DAEMON(10) Intake and Output - 24 Hour Total 12/06/24 11:30 thru 12/07/24 17:23 Intake Total 3057.5 Output Total 1500 Balance 1557.5 Weight 91.1 kg Intake: IV 3057.5 Output: Urine 1500 Other: Urine Color Yellow Urine Appearance Clear Urine Odor None # Voids 1 Falls Risk Assessment History of Falls Previous History 12/07/24 16:04 Contributing Factors Impairments,Medications 12/07/24 16:04 Ambulatory Aids Uses ambulatory device 12/07/24 16:04 Tubes/Lines With any additional score 12/07/24 16:04 Gait Evaluation W/any additional score 12/07/24 16:04 Cognition No cognitive impairment 12/06/24 14:30 Fall Total Score 76 12/07/24 16:04 Level of Risk Maximum Risk 12/07/24 16:04 Problems (Last Reviewed 12/06/24 @ 19:38 by Herb Miller) Acute renal failure (Acute) Shingles (Acute) Dehydration (Acute) GERD (gastroesophageal reflux disease) (Chronic) Smoker unmotivated to quit (Chronic) Essential hypertension (Chronic) v v v v v v v v v Sending and/or Receiving Nurses: Please use comment section below to note any information pertinent to the patient hand-off not included above. Information / Comments: Report received from:Bailee 15:25
--- NOTE | 2024-12-07 18:47 | PDOC.CMIN ---
Date of service: 12/07/24 Time of Service: 18:47 Care Management Initial Assmt Initial Assessment Reason for Hospitalization: Acute renal failure Functional Status/Living Situation Patient Presentation: Sameer was sitting up in his chair when CM met with him. He was pleasant and engaged well in conversation. He stated that he is feeling good today; he spent the night in the ED, so he was happy to have more space and privacy on the [facility] floor. He stated that he lives in [place] with his , Meseret; he is independent at baseline, uses a cane for ambulation, and continues to drive. He reported that he and his have four children who all live locally, and they have many grandchildren and great grandchildren. He reported that he had been feeling weak after being diagnosed with shingles in the community. He stated that he is starting to feel better, and is looking forward to returning home. He stated that he doesn't feel that he will need any community services at this time. CM will continue to follow. Town of Residence: [place] Resides with: Spouse Significant Other/Family: Local Natural Supports: , Meseret Four children, eight grandchildren, great grandchildren Employment Status: Retired Instrumental Activities of Daily Living (ADLs): Independent Medications Medication Management: No Issues/Barriers identified Physical Functioning/Mobility Assistive Device: cane Advance Directives Advance Directives: Do you have an Advance Directive: Y 02/03/20 11:56 AD On File at [facility]: Y 06/07/23 07:14 Date Asked 12/05/24 12/05/24 14:52 AD Date Reviewed COLST On File at [facility] No 06/06/23 21:09 COLST Date Scanned Code Status Resuscitation Status DNR/DNI Insurance Coverage/Financial Issues Insurance: [facility] [employer] [facility] Supplement Care Team Visit Care Team Role Provider Type Stanislaw Glez NP Primary Care Provider NURSE PRACTITIONER Evan Bartlett MD Emergency Provider [facility] STAFF PHYSICIAN Herb Miller Admit Provider NON-[facility] STAFF PHYSICIAN Attending Provider Discharge Potential Discharge Needs: PCP F/U Appt Anticipated Barriers to Discharge: None Identified Patient/Family Education Needs: Review discharge instructions, discuss Ask Me Three Transportation: Private vehicle Plan: Anticipate Sameer will return home with no new services. His will drive him home via private vehicle. He will follow up with his PCP and discharge plan of care. CM will continue to follow. Social Determinants of Health Screening Social Determinants of Health last assessed: 12/07/24 Will the Patient Participate in the Screening?: Yes Do you worry about having a steady place to live?: no Problems where you live: no known problems In the past 12 months, have you had to go without electric, gas, oil or water in your home?: no Have you or anyone in your house had to go without enough food to eat?: no Has lack of transportation kept you from medical appointments or from doing things needed for daily living?: yes Has anyone in your life made you feel unsafe or unsupported?: no How hard is it for you to pay for the very basics like food, housing, medical care, and heating? Would you say it is:: Somewhat hard Do you want help finding or keeping work or a job?: I do not need or want help If for any reason you need help with day-to-day activities such as bathing, preparing meals, shopping, managing finances, etc., do you get the help you need?: I don?t need any help How often do you feel lonely or isolated from those around you?: Never Do you speak a language other than Moroccan at home?: No Does the patient want assistance with any of the above?: No Health Related Social Needs Health related social needs: transportation insecurity (Z59.82) and problems related to housing/economic circumstances (Z59.89) PFSH All Active Problems (Updated 12/06/24 @ 19:49 by Herb Miller) Acute renal failure (Acute) Shingles (Acute) Venous ulcer of left leg (Acute) Lung mass (Acute) Heart murmur (Chronic) Acute kidney injury superimposed on chronic kidney disease (Acute) Dehydration (Acute) Hypomagnesemia (Acute) Syncope and collapse (Acute) Spinal stenosis (Acute) GERD (gastroesophageal reflux disease) (Chronic) Weight loss, abnormal (Acute) Atherosclerosis of artery of both lower extremities (Acute) Venous stasis dermatitis of both lower extremities (Acute) Aneurysm of right iliac artery (Acute) Non-healing ulcer of foot with fat layer exposed (Acute) Chronic ulcer of left lower extremity with fat layer exposed (Acute) Venous stasis ulcer of ankle (Acute) Smoker unmotivated to quit (Chronic) Myocardial infarction (Acute 10/08/84) Status post carotid endarterectomy (Acute) Status post phlebectomy (Acute) Compression fracture of lumbar spine, non-traumatic (Acute) Abdominal aortic aneurysm (AAA) without rupture (Acute 05/27/16) 3.5cm 05/24 CT scan Abnormal thyroid stimulating hormone (TSH) level (Acute 06/02/17) Chronic suppressed TSH. Normal T3, T4. Anemia (Acute 06/02/17) chronic normocystic. No etiology found. Bundle branch block, unspecified (Acute) left Carotid artery stenosis (Acute) Cataract (Acute) O.D. 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 likely due to DM Psoriasis (Acute) Right rotator cuff tear (Acute 02/20/15) Smell or taste problem (Acute) Syncope and collapse (Acute) ? 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 Sister No problems noted. Social History Smoking/Tobacco Use Status: Current every day Tobacco Type: pipe Smoking risk assessment performed?: Yes Alcohol Intake: current Alcohol Intake frequency: 0-2 drinks per day Substance use type: does not use Housing: house Current gender identity: male Do you feel safe at home: Yes Do you feel safe in your relationship?: Yes
[2024-12-07 19:06] LABS: Albumin 2.7 g/dL (3.4-5.0); Anion Gap 10.3 mmol/L (3-11); CO2 20.7 mmol/L (21.0-32.0); Calcium 9.1 mg/dL (8.5-10.1); Chloride 110 mmol/L (98-107); Estimated GFR 9.39 (mL/min/1.73m2); Glucose 132 mg/dL (74-106); Potassium 5.8 mmol/L (3.5-5.1); Sodium 141 mmol/L (136-145)
[2024-12-07 19:13] LABS: BUN 101 mg/dL (7-18); CREATININE 5.6 mg/dL (0.70-1.30)
[2024-12-07] MEDS: Pravastatin 20 MG TAB PO (20:04)
[2024-12-07 22:44] LABS: Anion Gap 10.8 mmol/L (3-11); CO2 19.2 mmol/L (21.0-32.0); Chloride 112 mmol/L (98-107); Estimated GFR 9.81 (mL/min/1.73m2); Glucose 84 mg/dL (74-106); Potassium 5.7 mmol/L (3.5-5.1); Sodium 142 mmol/L (136-145)
[2024-12-07 22:49] LABS: BUN 99 mg/dL (7-18); CREATININE 5.4 mg/dL (0.70-1.30)
[2024-12-08] VITALS (7 sets, daily range): BP systolic 155–178; BP diastolic 53–75; PULSE 63–73; RESP 16–20; TEMP 35.9–36.8; O2SAT 94–98
--- NOTE | 2024-12-08 01:26 | NUR.NOTE ---
Nursing Note: provider was updated about critical labs at 2029. No new orders at this time. continue fluids as ordered.
[2024-12-08] MEDS: Heparin 5,000 UNITS/ML VIAL 5000 UNITS SC ×3 (05:00→20:43)
[2024-12-08] MEDS: Lactated Ringers 1,000 ML 150 ML IV ×2 (06:42→13:41)
[2024-12-08 07:38] LABS: Abs Immature Grans 0.01 10^3/uL (0.0-0.06); Absolute Basophil Count 0.05 10^3/uL (0.0-0.2); Absolute Eosinophil Count 0.87 10^3/uL (0.0-0.7); Absolute Lymphocyte Count 0.67 10^3/uL (1.2-3.4); Absolute Monocyte Count 0.45 10^3/uL (0.1-0.8); Absolute Neutrophil Count 4.28 10^3/uL (1.2-6.7); Basophils % 0.8 %; Eosinophils % 13.7 %; HCT 28.9 % (40.0-50.0); HGB 9.4 g/dL (13.5-17.5); Immature Grans % 0.2 %; Lymphocytes % 10.6 %; MCH 29.8 pg (27.0-33.0); MCHC 32.5 % (32.0-36.0); MCV 92 fL (80-95); MPV 12.1 fL (8.0-11.0); Monocytes % 7.1 %; Neutrophils % 67.6 %; Platelet Count 145 10^3/uL (130-400); RBC 3.15 10^6/uL (4.36-5.78); RDW 14.5 % (11.8-14.1); WBC 6.33 10^3/uL (4.4-10.8)
[2024-12-08 07:56] LABS: Albumin 2.6 g/dL (3.4-5.0); Anion Gap 9.8 mmol/L (3-11); CO2 21.2 mmol/L (21.0-32.0); Calcium 9.4 mg/dL (8.5-10.1); Chloride 112 mmol/L (98-107); Estimated GFR 10.03 (mL/min/1.73m2); Glucose 92 mg/dL (74-106); Magnesium 1.8 mg/dL (1.8-2.4); PHOSPHORUS 4.2 mg/dL (2.6-4.7); Potassium 5.6 mmol/L (3.5-5.1); Sodium 143 mmol/L (136-145)
[2024-12-08 08:05] LABS: BUN 92 mg/dL (7-18); CREATININE 5.3 mg/dL (0.70-1.30)
[2024-12-08] MEDS: Aspirin 81 MG CHEW PO (08:06)
[2024-12-08] MEDS: Metoprolol 25 MG TAB PO ×2 (08:06→20:43)
[2024-12-08] MEDS: amLODIPine 2.5 MG TAB PO (08:06)
[2024-12-08] MEDS: Acetaminophen 325 MG TAB PO (12:40)
--- NOTE | 2024-12-08 13:42 | PDOC.CMPRO ---
Date of service: 12/08/24 Time of Service: 13:42 Care Management Progress Note Progress Note Text Progress Note Text: Sameer was sitting up on the edge of the bed when CM met with him today. He was very pleasant. He stated that his is feeling a bit better, but is still a bit tired. Sameer mentioned the he is eager to get home to shave. This is the first time since he was 16yo that he hasn't shaved and he feels like a bum. He was offered a razor, but he declined until he gets home. Sameer stated that he will not need any services at discharge. Discharge Potential Discharge Needs: PCP F/U Appt Anticipated Barriers to Discharge: None Identified Patient/Family Education Needs: Review discharge instructions, discuss Ask Me Three Transportation: Private vehicle Plan: Anticipate Sameer will return home with no new services. His will drive him home via private vehicle. He will follow up with his PCP and discharge plan of care. CM will continue to follow Social Determinants of Health Screening Social Determinants of Health last assessed: 12/08/24 Will the Patient Participate in the Screening?: Yes Do you worry about having a steady place to live?: no Problems where you live: no known problems In the past 12 months, have you had to go without electric, gas, oil or water in your home?: no Have you or anyone in your house had to go without enough food to eat?: no Has lack of transportation kept you from medical appointments or from doing things needed for daily living?: yes Has anyone in your life made you feel unsafe or unsupported?: no How hard is it for you to pay for the very basics like food, housing, medical care, and heating? Would you say it is:: Somewhat hard Do you want help finding or keeping work or a job?: I do not need or want help If for any reason you need help with day-to-day activities such as bathing, preparing meals, shopping, managing finances, etc., do you get the help you need?: I don?t need any help How often do you feel lonely or isolated from those around you?: Never Do you speak a language other than Brazilian at home?: No Does the patient want assistance with any of the above?: No Health Related Social Needs Health related social needs: transportation insecurity (Z59.82) and problems related to housing/economic circumstances (Z59.89)
[2024-12-08] MEDS: Sodium Zirconium Cyclosilicate 10 GM PKT PO ×2 (17:43→23:30)
--- NOTE | 2024-12-08 19:00 | W.PM.PROGNOT ---
Date of Service Date of service: 12/08/24 Time of Service: 19:00 Assessment and Plan Assessment and plan (1) Acute renal failure: Status: Acute Assessment and plan: History of CKD in the setting of treatment with Aciclovir for shingles as well as angiotensin-converting enzyme inhibitor for hypertension my staff because the CARLOZ on CKD Previous consult with [facility] nephrology most likely points to ATN in the setting of previously mentioned medications as well as reduced oral intake during the shingles infection over 2 weeks. The patient no longer takes Acyclovir, Will continue to continue to hold Lisinopril. Will continue continue IV hydration with lactated Ringer's per [facility] nephrology. BMP every 6 as per [facility] nephrology recommendation Reconsult [facility] nephrology if no improvement follow-up renal panel every 6 hours and reconsult [facility] nephrology if not improving with hydration. Cr above 5 this morning but now at 4.7, BUN over 90 now 79 Ongoing hyperkalemia at 5.6 treated with Lokelma with effectiveness evidenced by potassium level at 5.2 Will repeat 1 dose of Lokelma Down trending - touch base with [facility] nephrology on 12/09 if needed (2) Dehydration: Status: Acute Assessment and plan: Continue to hold nephrotoxic medicine Ongoing IV hydration with lactated Ringer's and follow-up lab closely. Monitor for for fluid overload. (3) Shingles: Status: Acute Assessment and plan: History of shingle infection occurring 2 weeks ago with completed treatment with Acyclovir (4) Essential hypertension: Status: Chronic Assessment and plan: Continue to hold lisinopril and continue other antihypertensive from home medicine regiment while hospitalized hold lisinopril but continue other antihypertensives while hospitalized. Consider furosemide if hyperkalemia is persistent despite other interventions (5) GERD (gastroesophageal reflux disease): Status: Chronic Assessment and plan: Continue pantoprazole (6) Smoker unmotivated to quit: Status: Chronic Assessment and plan: As needed nicotine replacement therapy (7) On deep vein thrombosis (DVT) prophylaxis: Status: Acute Assessment and plan: Continue subcutaneous heparin Discussed with Dr. Matias Subjective Subjective Patient reports: no new complaints, tolerating liquids well, tolerating a regular diet, voiding w/o difficulty and bowel movement; denies nausea, vomiting, shortness of breath or fever Exam Narrative Exam Narrative: Constitutional The patient is in bed without acute distress Neuro:alert and oriented to self, person, place, time and situation. No neurological focal deficit Resp: clear lung bilaterally Cardio: regular rhythm, S1, S2, + murmur, no edema GI: Abdomen is not distended, soft and non tender, bowel sounds are present Integumentary: No skin lesions or omari expose skin, refused exam of left LE ulcer Extremities: strength 5/5 to bilateral lower and upper extremities Psych: RASS 0, congruent mood and normal affect. Objective Last Vital Signs Temp 36.8 C 12/08/24 16:16 Pulse 64 12/08/24 16:16 Resp 16 12/08/24 16:16 BP 166/72 H 12/08/24 16:16 Pulse Ox 98 12/08/24 16:16 Laboratory Results - last 24 hr 12/07/24 12/07/24 12/07/24 07:45 18:45 19:26 WBC RBC Hgb Hct MCV MCH MCHC RDW Plt Count MPV Immature Gran % Neutrophils % Lymphocytes % Monocytes % Eosinophils % Basophils % Nucleated RBC % Absolute Neutrophils Absolute Lymphocytes Absolute Monocytes Absolute Eosinophils Absolute Basophils Sodium 141 Cancelled Potassium 6.0 H 5.8 H Cancelled Chloride 110 H Cancelled Carbon Dioxide 20.7 L Cancelled Anion Gap 10.3 Cancelled BUN 101 H* Cancelled Creatinine 5.6 H* Cancelled Est GFR (CKD-EPI 2020) 9.39 Cancelled Glucose 132 H Cancelled Calcium 9.1 Cancelled Phosphorus 4.0 Magnesium Albumin 2.7 L 12/07/24 12/08/24 12/08/24 22:25 06:55 06:55 WBC 6.33 RBC 3.15 L Hgb 9.4 L Hct 28.9 L MCV 92 MCH 29.8 MCHC 32.5 RDW 14.5 H Plt Count 145 MPV 12.1 H Immature Gran % 0.2 Neutrophils % 67.6 Lymphocytes % 10.6 Monocytes % 7.1 Eosinophils % 13.7 Basophils % 0.8 Nucleated RBC % 0.0 Absolute Neutrophils 4.28 Absolute Lymphocytes 0.67 L Absolute Monocytes 0.45 Absolute Eosinophils 0.87 H Absolute Basophils 0.05 Sodium 142 143 Cancelled Potassium 5.7 H 5.6 H Chloride 112 H Carbon Dioxide 19.2 L Anion Gap 10.8 BUN 99 H* Creatinine 5.4 H* Est GFR (CKD-EPI 2020) 9.81 Glucose 84 Calcium 9.0 Phosphorus Magnesium Albumin 12/08/24 12/08/24 12/08/24 06:55 06:55 06:55 WBC RBC Hgb Hct MCV MCH MCHC RDW Plt Count MPV Immature Gran % Neutrophils % Lymphocytes % Monocytes % Eosinophils % Basophils % Nucleated RBC % Absolute Neutrophils Absolute Lymphocytes Absolute Monocytes Absolute Eosinophils Absolute Basophils Sodium Potassium Cancelled Chloride 112 H Cancelled Carbon Dioxide 21.2 Cancelled Anion Gap 9.8 BUN Creatinine Est GFR (CKD-EPI 2020) Glucose Calcium Phosphorus Magnesium Albumin 12/08/24 12/08/24 12/08/24 06:55 06:55 06:55 WBC RBC Hgb Hct MCV MCH MCHC RDW Plt Count MPV Immature Gran % Neutrophils % Lymphocytes % Monocytes % Eosinophils % Basophils % Nucleated RBC % Absolute Neutrophils Absolute Lymphocytes Absolute Monocytes Absolute Eosinophils Absolute Basophils Sodium Potassium Chloride Carbon Dioxide Anion Gap Cancelled BUN 92 H* Cancelled Creatinine 5.3 H* Cancelled Est GFR (CKD-EPI 2020) 10.03 Glucose Calcium Phosphorus Magnesium Albumin 12/08/24 12/08/24 12/08/24 06:55 06:55 06:55 WBC RBC Hgb Hct MCV MCH MCHC RDW Plt Count MPV Immature Gran % Neutrophils % Lymphocytes % Monocytes % Eosinophils % Basophils % Nucleated RBC % Absolute Neutrophils Absolute Lymphocytes Absolute Monocytes Absolute Eosinophils Absolute Basophils Sodium Potassium Chloride Carbon Dioxide Anion Gap BUN Creatinine Est GFR (CKD-EPI 2020) Cancelled Glucose 92 Cancelled Calcium 9.4 Cancelled Phosphorus 4.2 Magnesium 1.8 Albumin 12/08/24 06:55 WBC RBC Hgb Hct MCV MCH MCHC RDW Plt Count MPV Immature Gran % Neutrophils % Lymphocytes % Monocytes % Eosinophils % Basophils % Nucleated RBC % Absolute Neutrophils Absolute Lymphocytes Absolute Monocytes Absolute Eosinophils Absolute Basophils Sodium Potassium Chloride Carbon Dioxide Anion Gap BUN Creatinine Est GFR (CKD-EPI 2020) Glucose Calcium Phosphorus Magnesium Cancelled Albumin 2.6 L PAWSS Have you Been Recently Intoxicated or Drunk Within the Last 30 days?: No Have you Ever Experienced Previous Episodes of Alcohol Withdrawal?: No Have you ever Experienced Withdrawal Seizures?: No Have you ever Experienced Delirium Tremens(DT)s?: No Have you ever undergone Alcohol Rehabilitation Treatment (i.e, inpt ot outpatient treatment programs)?: No Have you ever Experienced Blackouts?: No Have you ever Combined Alcohol with other Downers within the last 90 days?: No Have you ever Combined Alcohol with any other Substance of Abuse during the last 90 days?: No Positive Blood Alcohol level on Presentation? [PCS.BAL]: No Evidence of Increased Autonomic Activity (i.e. HR>120, tremor, sweating, agitation, nausea)?: No Result: 0 Time Spent with Patient Time Spent with Patient: >50 minutes Time was spent: preparing to see the patient(eg.review tests), obtaining and/or reviewing separately otained hiistory, ordering medications,tests, procedures, referring, communicating with other health career discovery teacher, indepentently interpreting results, counseling the patient and care coordination
[2024-12-08] MEDS: Pravastatin 20 MG TAB PO (20:43)
[2024-12-08] MEDS: Normal Saline Flush 10 ML SYR IVP (20:44)
[2024-12-08 21:43] LABS: BUN 79 mg/dL (7-18); Calcium 8.7 mg/dL (8.5-10.1); Glucose 92 mg/dL (74-106)
[2024-12-08 21:44] LABS: Chloride 110 mmol/L (98-107); Estimated GFR 11.59 (mL/min/1.73m2); Potassium 5.2 mmol/L (3.5-5.1); Sodium 141 mmol/L (136-145)
[2024-12-08 21:51] LABS: CREATININE 4.7 mg/dL (0.70-1.30)
[2024-12-09 03:16] LABS: Abs Immature Grans 0.02 10^3/uL (0.0-0.06); Absolute Basophil Count 0.04 10^3/uL (0.0-0.2); Absolute Eosinophil Count 0.81 10^3/uL (0.0-0.7); Absolute Lymphocyte Count 0.73 10^3/uL (1.2-3.4); Absolute Monocyte Count 0.43 10^3/uL (0.1-0.8); Absolute Neutrophil Count 4.05 10^3/uL (1.2-6.7); Basophils % 0.7 %; Eosinophils % 13.3 %; HCT 27.5 % (40.0-50.0); HGB 8.9 g/dL (13.5-17.5); Immature Grans % 0.3 %; MCH 30.1 pg (27.0-33.0); MCHC 32.4 % (32.0-36.0); MCV 93 fL (80-95); MPV 11.5 fL (8.0-11.0); Monocytes % 7.1 %; Neutrophils % 66.6 %; Platelet Count 122 10^3/uL (130-400); RBC 2.96 10^6/uL (4.36-5.78); RDW 14.3 % (11.8-14.1); RDW-SD 47.4 fL; WBC 6.08 10^3/uL (4.4-10.8)
[2024-12-09 03:17] LABS: Magnesium 1.4 mg/dL (1.8-2.4)
[2024-12-09 03:18] LABS: Anion Gap 9.2 mmol/L (3-11); BUN 77 mg/dL (7-18); CO2 21.8 mmol/L (21.0-32.0); Calcium 9.1 mg/dL (8.5-10.1); Chloride 110 mmol/L (98-107); Estimated GFR 11.59 (mL/min/1.73m2); Glucose 95 mg/dL (74-106); Potassium 5.3 mmol/L (3.5-5.1); Sodium 141 mmol/L (136-145)
[2024-12-09 03:22] LABS: CREATININE 4.7 mg/dL (0.70-1.30)
[2024-12-09] MEDS: Heparin 5,000 UNITS/ML VIAL 5000 UNITS SC (03:47)
[2024-12-09] MEDS: Lactated Ringers 1,000 ML 150 ML IV ×2 (03:48→10:18)
[2024-12-09 04:30] VITALS: BP 186/86; PULSE 78; RESP 18; TEMP 36.6; O2SAT 95
[2024-12-09 08:11] VITALS: BP 177/74; PULSE 72; RESP 16; TEMP 36.5; O2SAT 96
[2024-12-09] MEDS: MAGNESIUM SULFATE 1 GM/100 ML BAG IV_INF (08:39)
[2024-12-09] MEDS: Aspirin 81 MG CHEW PO (08:40)
[2024-12-09] MEDS: Metoprolol 25 MG TAB PO (08:40)
[2024-12-09] MEDS: Normal Saline Flush 10 ML SYR IVP (08:41)
[2024-12-09 09:41] LABS: Anion Gap 11.6 mmol/L (3-11); BUN 74 mg/dL (7-18); CO2 21.4 mmol/L (21.0-32.0); Calcium 8.6 mg/dL (8.5-10.1); Chloride 109 mmol/L (98-107); Estimated GFR 11.89 (mL/min/1.73m2); Glucose 139 mg/dL (74-106); Potassium 5.3 mmol/L (3.5-5.1); Sodium 142 mmol/L (136-145)
[2024-12-09 09:43] LABS: CREATININE 4.6 mg/dL (0.70-1.30)
[2024-12-09 11:17] VITALS: BP 167/70; PULSE 57; RESP 16; TEMP 36.5; O2SAT 95
--- NOTE | 2024-12-09 13:22 | W.PM.DS.N ---
Date of service: 12/09/24 Time of Service: 13:22 DS: Diagnosis Discharge Diagnosis (1) Acute renal failure: Status: Acute (2) Dehydration: Status: Acute (3) Shingles: Status: Acute (4) Essential hypertension: Status: Chronic (5) GERD (gastroesophageal reflux disease): Status: Chronic (6) Smoker unmotivated to quit: Status: Chronic Discharge Plan Disposition Patient Disposition: Home Condition: Improving Discharge Details Reason For Visit: Acute Renal Failure, Dehydration Admit Date/Time: 12/06/24 20:00 Admit Provider: Herb Miller Attending Provider: Herb Miller Primary Care Provider: Stanislaw Glez Hospital Course Hospital Course: This is an 84-year-old male patient past medical history significant for recent shingles infection, chronic kidney disease baseline creatinine 1.4, coronary artery disease, carotid artery stenosis, hypertension who presented to the emergency department after clinical lab values including a potassium of 6.1 and creatinine of 7.0 found on outpatient labs. His case was discussed with nephrology at [facility] and it is thought that due to his recent shingles infection and treatment with acyclovir in addition to lisinopril and dehydration from illness contributed to his acute renal failure/ATN. He was admitted under hospitalist services and treated with IV hydration and Lokelma to help bring his potassium down. He had no acute dynamic EKG changes. His lisinopril was placed on hold. He is slowly responded with creatinine now improved to 4.5. His potassium has stayed stable at 5.3. Rest of his labs unremarkable. His blood pressure was elevated at 160/70 and amlodipine was added as the lisinopril was discontinued. He is feeling much improved and ready for discharge to home. He should have close follow-up of his electrolytes outpatient he was advised to continue to push fluids to stay well-hydrated to eat a low potassium diet and to return Thursday or Thursday to his primary care provider for lab recheck. He was advised to return sooner for new or worsening symptoms. He is discharged to home with no new services Home Meds and New Rx's Prescriptions: Continued silver sulfadiazine [Silvadene] 1 % cream 1 applic Topical DAILY PRN (Reason: wound healing) Qty: 50 6RF triamcinolone acetonide 0.1 % ointment 1 applic Topical BID PRN (Reason: stasis ulcer) Qty: 453.6 2RF triamcinolone acetonide 0.5 % cream 1 applic Topical BID Qty: 45 3RF Rx Instructions: Use on affected area that is about 3 inches in diameter amlodipine 2.5 mg tablet 2.5 mg PO DAILY Qty: 90 3RF Patient Comments: TAKE 1 TABLET BY MOUTH DAILY metoprolol tartrate 50 mg tablet 25 mg PO BID Qty: 90 3RF pravastatin 20 mg tablet 20 mg PO DAILY Qty: 90 3RF omeprazole 20 mg capsule,delayed release(DR/EC) 20 mg PO DAILY PRN (Reason: acid reflux) Qty: 60 6RF aspirin 81 MG tablet,chewable 1 tab PO DAILY Patient Comments: 06/08/18 restarted. romeo 04/21/18 not taking. romeo Discontinued lisinopril [Zestril] 20 mg tablet 20 mg PO DAILY Qty: 90 3RF valacyclovir 1 gram tablet 1,000 mg PO ONCE Patient Comments: TAKE ONE TABLET BY MOUTH THREE TIMES A DAY Discharge Instructions Instructions: Kidney Failure Additional Instructions: drink plenty of water to stay well hydrated. low potassium diet have labs checked on Thursday or Thursday and discuss results with your primary care provider. return sooner for new or worsening symptoms Referrals: Stanislaw Glez [employer] [Primary Care Provider] - Activity:: Activity as Tolerated Equipment/Supplies:: No Equipment Needed Diet:: low potassium Discharge Orders Discharge Orders: Discharge Order (Routine); Ordered 12/09/24 Ordered By: Johanne Nunez Other Ambulatory Orders: Basic Metabolic Panel (Routine) Timeframe: 3 Days Facility: [facility] - Location: Laboratory Outpatient - [facility] Ordered By: Johanne Nunez DS: Summary Time Spent with Patient providing and/or coordinating discharge services: Less than 30 minutes Status at Discharge Functional status at discharge: independent ambulation Overall status at discharge: patient is progressing back to baseline Mental Status: mental status grossly normal Speech and Movement: speech and movement normal Mood: congruent mood Affect: normal affect Quality:SDOH Health Related Social Needs: Health related social needs transportation insecurity (Z59.82), problems related to housing/economic circumstances (Z59.89) Exam Narrative Exam Narrative: Well-appearing male of stated age in no acute distress head is atraumatic eyes nonicteric noninjected oral mucosas moist neck no JVD cardiovascular regular rate and rhythm respirations even and unlabored abdomen soft benign extremities without edema moves all extremities voiding without difficulty neurologic he is awake alert oriented no focal deficits psychiatric appropriate mood and affect Psych Mental Status: mental status grossly normal Speech and Movement: speech and movement normal Mood: congruent mood Affect: normal affect DS: Data Vitals/I&O Vitals and I&O: Vital Signs Temperature 36.5 C 12/09/24 11:17 Temperature Source Temporal Artery Scan 12/09/24 11:17 Pulse 57 L 12/09/24 11:17 Pulse Rhythm Regular 12/07/24 16:04 Pulse 62 12/07/24 14:50 Respiratory Rate 16 12/09/24 11:17 Respiratory Effort Normal 12/07/24 16:04 Respiratory Depth Normal 12/07/24 16:04 Respiratory Pattern Normal 12/07/24 16:04 Blood Pressure 167/70 H 12/09/24 11:17 Blood Pressure Mean 106 12/07/24 14:01 Blood Pressure Position Sitting 12/06/24 11:50 Pulse Oximetry 95 12/09/24 11:17 Oxygen Delivery Method Room Air 12/09/24 11:17 Oxygen Flow Rate 0 12/09/24 11:17 Pain Level 0 12/09/24 11:17 Comment RN notified of bp 12/09/24 08:11 Intake & Output 12/08/24 12/09/24 12/09/24 23:59 11:59 23:59 Intake Total 2830 / 4190 1075 / 1075 Output Total 900 / 2200 1200 / 1450 250 / 1450 Balance 1929 / 1989 -125 / -375 -250 / -375 Weight 93.1 kg Intake: IV 2009 1075 / 1075 Oral 820 / 1180 Output: Urine 900 / 2200 1200 / 1450 250 / 1450 Other: Urine Color Yellow Straw Yellow Urine Appearance Clear Clear Urine Odor None None Normal Comment Pt voided into hat in toilet. Small 2 mm. chunk of tissue noted in hat with urine, no blood, Pt stated, it didn't come from me. Stool Size Moderate Stool Characteristics Soft Brown Data Completed and Pending Labs on day of discharge: Labs from last 24 hours 12/09/24 12/09/24 12/09/24 21:00 15:00 09:16 WBC RBC Hgb Hct MCV MCH MCHC RDW Plt Count MPV Immature Gran % Neutrophils % Lymphocytes % Monocytes % Eosinophils % Basophils % Nucleated RBC % Absolute Neutrophils Absolute Lymphocytes Absolute Monocytes Absolute Eosinophils Absolute Basophils Sodium Cancelled Cancelled 142 Potassium Cancelled Cancelled 5.3 H Chloride Cancelled Cancelled 109 H Carbon Dioxide Cancelled Cancelled 21.4 Anion Gap Cancelled Cancelled 11.6 H BUN Cancelled Cancelled 74 H Creatinine Cancelled Cancelled 4.6 H* Est GFR (CKD-EPI 2020) Cancelled Cancelled 11.89 Glucose Cancelled Cancelled 139 H Calcium Cancelled Cancelled 8.6 Magnesium 12/09/24 12/08/24 03:02 21:15 WBC 6.08 RBC 2.96 L Hgb 8.9 L Hct 27.5 L MCV 93 MCH 30.1 MCHC 32.4 RDW 14.3 H Plt Count 122 L MPV 11.5 H Immature Gran % 0.3 Neutrophils % 66.6 Lymphocytes % 12.0 Monocytes % 7.1 Eosinophils % 13.3 Basophils % 0.7 Nucleated RBC % 0.0 Absolute Neutrophils 4.05 Absolute Lymphocytes 0.73 L Absolute Monocytes 0.43 Absolute Eosinophils 0.81 H Absolute Basophils 0.04 Sodium 141 141 Potassium 5.3 H 5.2 H Chloride 110 H 110 H Carbon Dioxide 21.8 23.0 Anion Gap 9.2 8.0 BUN 77 H 79 H Creatinine 4.7 H* 4.7 H* Est GFR (CKD-EPI 2020) 11.59 11.59 Glucose 95 92 Calcium 9.1 8.7 Magnesium 1.4 L PFSH All Active Problems (Updated 12/09/24 @ 13:29 by Johanne Nunez NP) Hyperkalemia (Acute) On deep vein thrombosis (DVT) prophylaxis (Acute) Acute renal failure (Acute) Shingles (Acute) Venous ulcer of left leg (Acute) Lung mass (Acute) Heart murmur (Chronic) Acute kidney injury superimposed on chronic kidney disease (Acute) Dehydration (Acute) Hypomagnesemia (Acute) Syncope and collapse (Acute) Spinal stenosis (Acute) GERD (gastroesophageal reflux disease) (Chronic) Weight loss, abnormal (Acute) Atherosclerosis of artery of both lower extremities (Acute) Venous stasis dermatitis of both lower extremities (Acute) Aneurysm of right iliac artery (Acute) Non-healing ulcer of foot with fat layer exposed (Acute) Chronic ulcer of left lower extremity with fat layer exposed (Acute) Venous stasis ulcer of ankle (Acute) Smoker unmotivated to quit (Chronic) Myocardial infarction (Acute 10/08/84) Status post carotid endarterectomy (Acute) Status post phlebectomy (Acute) Compression fracture of lumbar spine, non-traumatic (Acute) Abdominal aortic aneurysm (AAA) without rupture (Acute 05/27/16) 3.5cm 05/24 CT scan Abnormal thyroid stimulating hormone (TSH) level (Acute 06/02/17) Chronic suppressed TSH. Normal T3, T4. Anemia (Acute 06/02/17) chronic normocystic. No etiology found. Bundle branch block, unspecified (Acute) left Carotid artery stenosis (Acute) Cataract (Acute) O.D. 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 likely due to DM Psoriasis (Acute) Right rotator cuff tear (Acute 02/20/15) Smell or taste problem (Acute) Syncope and collapse (Acute) ? 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 Sister No problems noted. Social History Smoking/Tobacco Use Status: Current every day Tobacco Type: pipe Smoking risk assessment performed?: Yes Alcohol Intake: current Alcohol Intake frequency: 0-2 drinks per day Substance use type: does not use Housing: house Current gender identity: male Do you feel safe at home: Yes Do you feel safe in your relationship?: Yes Time Spent with Patient Time Spent with Patient: 45-69 minutes Time was spent: preparing to see the patient(eg.review tests), obtaining and/or reviewing separately otained hiistory, ordering medications,tests, procedures, indepentently interpreting results and counseling the patient
--- NOTE | 2024-12-09 13:23 | PT.INNT ---
PT Notes Visit Reasons: Acute Renal Failure, Dehydration Per referring provider JUANITA Whiting, patient is now being discharged and no longer needs PT evalaution.
--- NOTE | 2024-12-09 13:49 | PDOC.CMDIS ---
Date of service: 12/09/24 Time of Service: 13:49 LACE Index Scoring Tool Questions: Length of Stay (in days): 3 Was the patient admitted via the E.D.?: Yes Comorbidities: Previous M.I. and Mild Liver/Renal Disease E.D. Visits: 1 Answers: Total Score: 10 Risk of Readmission: High Risk Care Management Discharge Plan Reason for Hospitalization: acute renal failure Discharge Plan: Sameer was discharged home today with no new services. He will have labs drawn early next week, and f/u with his PCP, and continue per his plan of care. Sameer will be transported home in a private vehicle with his friend. Patient/Family Education Needs: Review of discharge instructions, activity, limitations and discuss ask me 3. SDOH Health Related Social Needs: Health related social needs transportation insecurity (Z59.82), problems related to housing/economic circumstances (Z59.89)
[2024-12-09] MEDS: Sodium Zirconium Cyclosilicate 10 GM PKT PO (14:26)
== END 2024-12-09 14:24 | disposition home or self-care (01) | DRG 684 ==
LOC: ER 19:06 → EDHOLD 20:07 → MS 12-07 15:51
PROVIDERS: Emergency Medicine; Nurse Practitioner Acute Care; Nurse Practitioner Family; Admitting Provider Family Medicine; Emergency Provider Emergency Medicine; PCP Nurse Practitioner Family; Visit Provider Family Medicine
DX: N17.0 Acute kidney failure with tubular necrosis (principal); E86.0 Dehydration; B02.9 Zoster without complications; K21.9 Gastro-esophageal reflux disease without esophagitis; E87.5 Hyperkalemia; Z79.899 Other long term (current) drug therapy; I12.9 Hypertensive chronic kidney disease with stage 1 through stage 4 chronic kidney disease, or unspecified chronic kidney disease; Z66 Do not resuscitate; N18.9 Chronic kidney disease, unspecified; F17.290 Nicotine dependence, other tobacco product, uncomplicated; E83.42 Hypomagnesemia; R91.8 Other nonspecific abnormal finding of lung field; I70.203 Unspecified atherosclerosis of native arteries of extremities, bilateral legs; I87.2 Venous insufficiency (chronic) (peripheral); I72.3 Aneurysm of iliac artery; I25.2 Old myocardial infarction; I71.40 Abdominal aortic aneurysm, without rupture, unspecified; D64.9 Anemia, unspecified; I44.7 Left bundle-branch block, unspecified; E78.5 Hyperlipidemia, unspecified; L97.522 Non-pressure chronic ulcer of other part of left foot with fat layer exposed
CPT/HCPCS: 00123; 36415; 36416; 51798; 76770; 80048; 80053; 80069; 82550; 82962; 87635; 93005; 96360; 96361; 99285; 81003; 81015; 83735; 84484; 85025; 93010; 99223; 99232; 99233; 99239; J1644; J3475

== ENCOUNTER 2024-12-12 09:12 | Outpatient (CLI) | payer MEDICARE, SELFPAY ==
[2024-12-12 12:51] LABS: Anion Gap 10.2 mmol/L (3-11); BUN 54 mg/dL (7-18); CO2 23.8 mmol/L (21.0-32.0); Calcium 8.7 mg/dL (8.5-10.1); Chloride 106 mmol/L (98-107); Glucose 149 mg/dL (74-106); Potassium 4.9 mmol/L (3.5-5.1); Sodium 140 mmol/L (136-145)
[2024-12-12 12:57] LABS: CREATININE 4.8 mg/dL (0.70-1.30)
== END 2024-12-12 09:13 | disposition home or self-care (01) ==
LOC: LOS 09:13
PROVIDERS: Nurse Practitioner Acute Care; PCP Nurse Practitioner Family; Referring Provider Nurse Practitioner Family; Visit Provider Nurse Practitioner Family
DX: N17.9 Acute kidney failure, unspecified (principal); E87.5 Hyperkalemia
CPT/HCPCS: 36415; 80048

== ENCOUNTER 2024-12-14 01:16 | Outpatient (CLI) | payer MEDICARE, SELFPAY ==
[2024-12-14 12:48] LABS: Anion Gap 11.3 mmol/L (3-11); BUN 49 mg/dL (7-18); CO2 23.7 mmol/L (21.0-32.0); Calcium 8.6 mg/dL (8.5-10.1); Chloride 105 mmol/L (98-107); Estimated GFR 12.21 (mL/min/1.73m2); Glucose 107 mg/dL (74-106); Potassium 4.7 mmol/L (3.5-5.1); Sodium 140 mmol/L (136-145)
[2024-12-14 12:53] LABS: CREATININE 4.5 mg/dL (0.70-1.30)
== END 2024-12-14 01:17 | disposition home or self-care (01) ==
PROVIDERS: PCP Nurse Practitioner Family; Visit Provider Nurse Practitioner Family
DX: N17.0 Acute kidney failure with tubular necrosis (principal); N18.9 Chronic kidney disease, unspecified; B49 Unspecified mycosis
CPT/HCPCS: 36415; 80048

== ENCOUNTER 2024-12-19 02:49 | Outpatient (CLI) | payer MEDICARE, SELFPAY ==
[2024-12-19 13:02] LABS: Anion Gap 12.9 mmol/L (3-11); BUN 46 mg/dL (7-18); CO2 23.1 mmol/L (21.0-32.0); Calcium 8.6 mg/dL (8.5-10.1); Chloride 105 mmol/L (98-107); Glucose 94 mg/dL (74-106); Potassium 4.7 mmol/L (3.5-5.1); Sodium 141 mmol/L (136-145)
[2024-12-19 13:15] LABS: CREATININE 4.8 mg/dL (0.70-1.30)
== END 2024-12-19 02:50 | disposition home or self-care (01) ==
LOC: LOS 02:49
PROVIDERS: PCP Nurse Practitioner Family; Visit Provider Nurse Practitioner Family
DX: N17.9 Acute kidney failure, unspecified (principal); N18.9 Chronic kidney disease, unspecified
CPT/HCPCS: 36415; 80048

== ENCOUNTER 2025-01-12 10:23 | Outpatient (CLI) | payer MEDICARE, SELFPAY ==
[2025-01-12 12:45] LABS: Anion Gap 10.1 mmol/L (3-11); CO2 24.9 mmol/L (21.0-32.0); Chloride 105 mmol/L (98-107); Potassium 5.1 mmol/L (3.5-5.1); Sodium 140 mmol/L (136-145)
[2025-01-12 13:47] LABS: BUN 55 mg/dL (7-18); Calcium 9.5 mg/dL (8.5-10.1); Glucose 135 mg/dL (74-106)
[2025-01-12 14:13] LABS: CREATININE 4.8 mg/dL (0.70-1.30)
[2025-01-12 14:46] LABS: Hemoglobin A1C 6.1 % (<5.7)
== END 2025-01-12 10:24 | disposition home or self-care (01) ==
PROVIDERS: PCP Nurse Practitioner Family; Referring Provider Nurse Practitioner Family; Visit Provider Nurse Practitioner Family
DX: Z13.1 Encounter for screening for diabetes mellitus (principal); N17.9 Acute kidney failure, unspecified; N18.9 Chronic kidney disease, unspecified
CPT/HCPCS: 36415; 80048; 83036

== ENCOUNTER 2025-04-21 01:24 | Outpatient (CLI) | payer MEDICARE, SELFPAY ==
--- NOTE | 2025-04-21 06:45 | DI.CT_ITS ---
Exam(s) CT ABDOMEN PELVIS WO EXAM: CT ABDOMEN PELVIS WO CLINICAL HISTORY: f/u ultrasound, aaa,I71.4. TECHNIQUE: Imaging Protocol: Axial computed tomography images with coronal and sagittal reformatted images were created and reviewed CONTRAST MATERIAL: Intravenous: none Oral: None COMPARISON: CT ABD PELVIS WITH CONTRAST from 05/15/2016 FINDINGS: VISUALIZED LUNG BASES: There is a moderate size right pleural effusion. There is infiltrate in the right lung base. Also nodular densities in both lung bases.. ABDOMEN: AORTA: There is an infrarenal abdominal aortic aneurysm which exhibits maximum diameter 4.2 cm (AP) just below the takeoff points of the renal arteries. Lower down it exhibits maximum diameter 3.7 cm. There is also fusiform dilatation of the proximal right common iliac artery which exhibits maximum diameter 2.1 cm. This measurement of the right common iliac artery is unchanged from the 2016 CT scan. The calcified left common iliac artery is not significantly dilated and there is no significant dilatation of the external iliac arteries nor obvious aneurysms of the calcified internal iliac arteries. LIVER: There is mild fluid around the lower aspect of the right hepatic lobe and between the right hepatic lobe and the right kidney, where there is also abundant hyperdense material either calcification or previously extravasated barium in Morison's pouch as well as surrounding a large part of the right kidney. No other obvious findings in the liver realizing that this is a noninfused study. GALLBLADDER/BILIARY: Small layering gallstones are noted in the gallbladder lumen. Gallbladder wall appears slightly inhomogeneous.. The gallbladder is not distended. CBD is not dilated. PANCREAS: No evidence of pancreatic mass nor dilatation of the pancreatic duct. SPLEEN: Spleen is not enlarged. No obvious intrasplenic lesions. ADRENALS: There are no significant adrenal masses. KIDNEYS:No significant findings in the left kidney. Right kidney exhibits normal size. Some calcification in the vasculature of the kidney noted in the hilar region. However, the main finding here is abnormal thickening and either calcification or extravasated barium around the right kidney and in Morison's pouch between the kidney and right hepatic lobe. This measures up to almost 2 cm thick.. There are no solid renal masses nor obstructive calculi. LYMPH NODES: There is no retroperitoneal nor paraaortic adenopathy. ABDOMINAL WALL: No evidence of significant anterior abdominal wall nor inguinal hernia. GI: There is no evidence of bowel obstruction. There is diverticulosis involving the entire colon, most prominent in the sigmoid where there is extensive diverticulosis. There is some fluid in the dependent aspect of the pelvis which may indicate that there is subtle diverticulitis although it is difficult to identify culprit diverticuli here. PELVIS: There is a small-moderate amount of free fluid in the dependent aspect of the pelvis in this male patient. LYMPH NODES: There is no intrapelvic nor inguinal adenopathy. GI: No evidence of appendicitis. URINARY BLADDER: Mild uniform thickening of the urinary bladder wall. No obvious distinct bladder masses nor intraluminal calculi. There is no gas within the urinary bladder lumen. REPRODUCTIVE: Prostate size normal. Seminal vesicles unremarkable. OSSEOUS: No significant osseous lesions. There are multiple non nonacute appearing compression fractures of superior endplates of L2, L3, and L4. No significant retropulsed cortex at these levels. IMPRESSION: 1. Compared to the prior CT scan of May 2016 there is an abdominal aortic aneurysm with maximum diameter 4.2 cm, as described above. In addition, there is also noted aneurysmal dilatation of the right common iliac artery to diameter of 2.1 cm. However, this finding in the right common iliac artery is unchanged from 2016. 2. There is abnormal hyperdensity between the right kidney and liver both calcified and noncalcified and significantly increased when compared to the images of May 2016. This abnormal finding measures up to almost 2 cm thick. The high density in this region may be calcium but also cannot exclude sequelae of extravasated oral contrast such as extravasation from previously present duodenal ulcer. This abnormal finding requires investigation, starting with past medical/surgical history. Right kidney otherwise appears unremarkable, as does the left kidney.. 3. Cholelithiasis. The gallbladder wall appears slightly thickened and hazy. Cannot exclude an element of acute cholecystitis here. The CBD is not dilated. 4. There is colonic diverticulosis with extensive diverticulosis of the sigmoid. There is also some free fluid in the dependent aspect of the pelvis in this male patient. This may indicate that there is subtle diverticulitis or that this fluid is due to another abnormal ongoing acute or subacute process. 5. no evidence of acute appendicitis and no evidence of acute pancreatitis. 6. Moderate size right pleural effusion and increased interstitial and nodular markings in lung bases. Office of this out patient was notified concerning this report RADIATION DOSE DELIVERED: 629.74mGy.cm Total DLP DATA REPOSITORY: All CT scans at this facility are submitted to the National Radiology Data Registry (NRDR) Dose Index Registry (DIR) with the [employer] ([employer]). RADIATION OPTIMIZATION: All CT scans at this facility use at least one of these dose optimization techniques: automated exposure control; mA and/or kV adjustment per patient size (includes targeted exams where dose is matched to clinical indication); or iterative reconstruction.
== END 2025-04-21 01:44 ==
LOC: DI 01:24
PROVIDERS: PCP Nurse Practitioner Family; Visit Provider Nurse Practitioner Family
DX: I71.40 Abdominal aortic aneurysm, without rupture, unspecified (principal); K57.30 Diverticulosis of large intestine without perforation or abscess without bleeding; K80.80 Other cholelithiasis without obstruction
CPT/HCPCS: 74176

== ENCOUNTER 2025-06-14 16:09 | Outpatient (CLI) | payer MEDICARE, SELFPAY ==
[2025-06-14 16:26] LABS: Abs Immature Grans 0.03 10^3/uL (0.0-0.06); HCT 25.6 % (40.0-50.0); HGB 7.7 g/dL (13.5-17.5); Immature Grans % 0.6 %; MCH 28.5 pg (27.0-33.0); MCHC 30.1 % (32.0-36.0); MCV 95 fL (80-95); MPV 10.2 fL (8.0-11.0); Platelet Count 173 10^3/uL (130-400); RBC 2.70 10^6/uL (4.36-5.78); RDW 14.6 % (11.8-14.1); RDW-SD 51.2 fL; WBC 5.40 10^3/uL (4.4-10.8)
[2025-06-14 16:40] LABS: ALT 20 U/L (16-63); AST 14 U/L (15-37); Albumin 3.0 g/dL (3.4-5.0); Alkaline Phosphatase 91 U/L (46-116); Anion Gap 13.6 mmol/L (3-11); BUN 50 mg/dL (7-18); Bilirubin, Total 0.3 mg/dL (0.2-1.0); CO2 21.4 mmol/L (21.0-32.0); Calcium 9.1 mg/dL (8.5-10.1); Chloride 104 mmol/L (98-107); Estimated GFR 12.89 (mL/min/1.73m2); Glucose 104 mg/dL (74-106); Potassium 4.8 mmol/L (3.5-5.1); Sodium 139 mmol/L (136-145); Total Protein 9.6 g/dL (6.4-8.2)
== END 2025-06-14 16:10 | disposition home or self-care (01) ==
LOC: LBO 16:10
PROVIDERS: PCP Nurse Practitioner Family; Visit Provider Internal Medicine Hematology & Oncology
DX: C85.10 Unspecified B-cell lymphoma, unspecified site (principal)
CPT/HCPCS: 36415; 80053; 86850; 86900; 86901; 85025; 86870

== ENCOUNTER 2025-06-15 13:38 | Outpatient (CLI) | payer MEDICARE, SELFPAY | END 2025-06-15 13:39 | disposition home or self-care (01) | PROVIDERS: PCP Nurse Practitioner Family; Visit Provider Internal Medicine Hematology & Oncology | DX: D47.2 Monoclonal gammopathy (principal); C85.10 Unspecified B-cell lymphoma, unspecified site | CPT/HCPCS: 86870; 86880; 86900; 86905 ==

== ENCOUNTER 2025-06-19 04:05 | Outpatient (RCR) | payer MEDICARE, SELFPAY ==
[2025-06-19] MEDS: Normal Saline Flush 10 ML SYR IVP (10:28)
[2025-06-19 10:47] LABS: Abs Immature Grans 0.01 10^3/uL (0.0-0.06); HCT 25.0 % (40.0-50.0); HGB 7.9 g/dL (13.5-17.5); Immature Grans % 0.2 %; MCH 29.9 pg (27.0-33.0); MCHC 31.6 % (32.0-36.0); MCV 95 fL (80-95); MPV 11.0 fL (8.0-11.0); Platelet Count 175 10^3/uL (130-400); RBC 2.64 10^6/uL (4.36-5.78); RDW 15.1 % (11.8-14.1); RDW-SD 51.8 fL; WBC 5.32 10^3/uL (4.4-10.8)
[2025-06-19 12:49] VITALS: BP 165/76; PULSE 60; RESP 19; TEMP 36.3; O2SAT 98
[2025-06-19 13:05] VITALS: BP 154/77; PULSE 61; RESP 19; TEMP 35.8; O2SAT 97
[2025-06-19 13:20] VITALS: BP 152/72; PULSE 57; RESP 19; TEMP 36; O2SAT 96
[2025-06-19 13:50] VITALS: BP 161/77; PULSE 64; RESP 18; TEMP 36.2; O2SAT 95
[2025-06-19 14:50] VITALS: BP 156/93; PULSE 66; RESP 18; TEMP 36; O2SAT 98
== END 2025-07-09 23:59 | disposition home or self-care (01) ==
LOC: INF 04:05
PROVIDERS: PCP Nurse Practitioner Family; Visit Provider Internal Medicine Hematology & Oncology
DX: C85.90 Non-Hodgkin lymphoma, unspecified, unspecified site (principal); N17.9 Acute kidney failure, unspecified
CPT/HCPCS: 36415; 36430; 86850; 86900; 86901; 86920; 85025; 86870; P9016

== ENCOUNTER 2025-07-12 13:05 | Outpatient (CLI) | payer MEDICARE, SELFPAY ==
[2025-07-12 15:40] LABS: Abs Immature Grans 0.01 10^3/uL (0.0-0.06); HCT 29.7 % (40.0-50.0); HGB 9.0 g/dL (13.5-17.5); Immature Grans % 0.2 %; MCH 28.8 pg (27.0-33.0); MCHC 30.3 % (32.0-36.0); MCV 95 fL (80-95); MPV 11.2 fL (8.0-11.0); Platelet Count 194 10^3/uL (130-400); RBC 3.13 10^6/uL (4.36-5.78); RDW 15.2 % (11.8-14.1); RDW-SD 52.6 fL; WBC 5.27 10^3/uL (4.4-10.8)
== END 2025-07-12 13:06 | disposition home or self-care (01) ==
LOC: LBO 13:05 → LBN 15:22
PROVIDERS: PCP Family Medicine; Visit Provider Internal Medicine Hematology & Oncology
DX: D47.2 Monoclonal gammopathy (principal)
CPT/HCPCS: 85025

== ENCOUNTER 2025-08-02 01:50 | Outpatient (CLI) | payer MEDICARE, SELFPAY ==
[2025-08-02 13:43] LABS: Abs Immature Grans 0.01 10^3/uL (0.0-0.06); HCT 30.3 % (40.0-50.0); HGB 9.1 g/dL (13.5-17.5); Immature Grans % 0.2 %; MCH 28.1 pg (27.0-33.0); MCHC 30.0 % (32.0-36.0); MCV 94 fL (80-95); MPV 11.1 fL (8.0-11.0); Platelet Count 165 10^3/uL (130-400); RBC 3.24 10^6/uL (4.36-5.78); RDW 15.8 % (11.8-14.1); RDW-SD 54.4 fL; WBC 4.58 10^3/uL (4.4-10.8)
[2025-08-02 13:54] LABS: ALT 14 U/L (16-63); AST 12 U/L (15-37); Albumin 2.9 g/dL (3.4-5.0); Alkaline Phosphatase 80 U/L (46-116); Anion Gap 11.4 mmol/L (3-11); BUN 42 mg/dL (7-18); Bilirubin, Total 0.3 mg/dL (0.2-1.0); CO2 24.6 mmol/L (21.0-32.0); Calcium 9.0 mg/dL (8.5-10.1); Chloride 104 mmol/L (98-107); Estimated GFR 12.89 (mL/min/1.73m2); Glucose 86 mg/dL (74-106); LDH 177 U/L (85-227); Potassium 5.0 mmol/L (3.5-5.1); Sodium 140 mmol/L (136-145); Total Protein 9.3 g/dL (6.4-8.2)
== END 2025-08-02 01:51 | disposition home or self-care (01) ==
LOC: LBO 01:50
PROVIDERS: PCP Family Medicine; Visit Provider Internal Medicine Hematology & Oncology
DX: D47.2 Monoclonal gammopathy (principal)
CPT/HCPCS: 36415; 80053; 86850; 86900; 86901; 83615; 85025

== ENCOUNTER 2025-08-23 00:03 | Outpatient (CLI) | payer MEDICARE, SELFPAY ==
[2025-08-23 11:10] LABS: Abs Immature Grans 0.02 10^3/uL (0.0-0.06); HCT 32.5 % (40.0-50.0); HGB 9.6 g/dL (13.5-17.5); Immature Grans % 0.5 %; MCH 27.0 pg (27.0-33.0); MCHC 29.5 % (32.0-36.0); MCV 92 fL (80-95); MPV 10.7 fL (8.0-11.0); Platelet Count 165 10^3/uL (130-400); RBC 3.55 10^6/uL (4.36-5.78); RDW 16.0 % (11.8-14.1); RDW-SD 54.1 fL; WBC 4.36 10^3/uL (4.4-10.8)
[2025-08-23 11:25] LABS: ALT 16 U/L (16-63); AST 11 U/L (15-37); Albumin 2.8 g/dL (3.4-5.0); Alkaline Phosphatase 95 U/L (46-116); Anion Gap 13.0 mmol/L (3-11); BUN 42 mg/dL (7-18); Bilirubin, Total 0.5 mg/dL (0.2-1.0); CO2 27.0 mmol/L (21.0-32.0); Calcium 8.7 mg/dL (8.5-10.1); Chloride 101 mmol/L (98-107); Estimated GFR 11.89 (mL/min/1.73m2); Glucose 108 mg/dL (74-106); LDH 131 U/L (85-227); Potassium 4.5 mmol/L (3.5-5.1); Sodium 141 mmol/L (136-145); Total Protein 8.9 g/dL (6.4-8.2)
== END 2025-08-23 00:04 | disposition home or self-care (01) ==
LOC: LBO 00:03
PROVIDERS: PCP Family Medicine; Visit Provider Internal Medicine Hematology & Oncology
DX: D47.2 Monoclonal gammopathy (principal)
CPT/HCPCS: 36415; 80053; 86850; 86900; 86901; 83615; 85025

== ENCOUNTER 2025-09-17 11:58 | Inpatient (IN) | payer MEDICARE, SELFPAY ==
[2025-09-17] VITALS (12 sets, daily range): BP systolic 134–165; BP diastolic 72–88; PULSE 69–84; RESP 17–43; TEMP 36.2–36.6; O2SAT 91–98
--- NOTE | 2025-09-17 12:00 | DI.RAD_ITS ---
Exam(s) XR PORTABLE CHEST AP EXAM: XR PORTABLE CHEST AP CLINICAL HISTORY: dyspnea TECHNIQUE: 2D digital imaging was performed of the chest. One image was obtained. An AP view was obtained. COMPARISON: CR CHEST 2 VIEWS PA,LAT from 08/21/2015 CR,XR XR CHEST 2V PA LATERAL from 06/06/[address] ABDOMEN PELVIS WO from 04/21/2025 FINDINGS: MEDIASTINUM: Normal. HEART: It is difficult to evaluate the heart size secondary to the right basilar opacities. PULMONARY VASCULATURE: There is pulmonary venous congestion. LUNGS: Diffuse interstitial prominence is present. Opacities are seen in the inferior half of the right lung. PLEURAL SPACE: There is blunting of the right costophrenic angle suggesting a moderate pleural effusion. BONE:Within normal limits for the patient's age. OTHER FINDINGS:Normal. IMPRESSION: 1. Pulmonary venous congestion and a right pleural effusion. This may reflect fluid overload/congestive heart failure. Please correlate clinically. 2. Opacities in the right lung base. Differential considerations include pneumonia or atelectasis. A pulmonary mass cannot be excluded particularly in the right hilar region. 3. Following treatment for the acute abnormality, a CT scan of the chest should be considered. DATA REPOSITORY: RADIATION DOSE DELIVERED:
--- NOTE | 2025-09-17 12:00 | RT.EKG_ITS ---
APPROVED REPORT Exam: Resting ECG Reason for Exam: sob Patient Location: E HR:73 bpm ECG Measurements Heart Rate 73 AXIS SC 172 P -47 QRSd 143 QRS 0 QT 457 T 191 QTc 503 Conclusion Sinus or ectopic atrial rhythm...P axis (-45,135) LVH with secondary repolarization abnormality...multi-LVH criteria, abnrm ST-T
[2025-09-17 12:30] LABS: Abs Immature Grans 0.02 10^3/uL (0.0-0.06); BE (Venous) 0 mmol/L (-2-3); HCO3 (Venous) 27 mmol/L (23-28); HCT 32.6 % (40.0-50.0); HGB 9.7 g/dL (13.5-17.5); Immature Grans % 0.3 %; MCH 26.6 pg (27.0-33.0); MCHC 29.8 % (32.0-36.0); MCV 89 fL (80-95); MPV 11.2 fL (8.0-11.0); O2 Sat (Venous) 43 %; Platelet Count 162 10^3/uL (130-400); RBC 3.65 10^6/uL (4.36-5.78); RDW 16.3 % (11.8-14.1); RDW-SD 53.6 fL; TCO2 (Venous) 26 mmol/L (24-29); WBC 5.91 10^3/uL (4.4-10.8); pCO2 (Venous) 53 mmHg (41-51); pO2 (Venous) 28 mmHg
--- NOTE | 2025-09-17 12:40 | W.ED.GENAD ---
Discharge Plan Disposition Patient Disposition: Admit to [facility] Discharge Details Clinical Impression: Fluid overload, New onset of congestive heart failure Primary Care Provider: Marino Nieto ED Provider: Moises Akins Home Meds and New Rx's Prescriptions: No Action silver sulfadiazine [Silvadene] 1 % cream 1 applic Topical DAILY PRN (Reason: wound healing) Qty: 50 6RF triamcinolone acetonide 0.1 % ointment 1 applic Topical BID PRN (Reason: stasis ulcer) Qty: 453.6 2RF triamcinolone acetonide 0.5 % cream 1 applic Topical BID Qty: 45 3RF Rx Instructions: Use on affected area that is about 3 inches in diameter amlodipine 2.5 mg tablet 2.5 mg PO DAILY Qty: 90 3RF Patient Comments: TAKE 1 TABLET BY MOUTH DAILY metoprolol tartrate 50 mg tablet 25 mg PO BID Qty: 90 3RF pravastatin 20 mg tablet 20 mg PO DAILY Qty: 90 3RF aspirin 81 MG tablet,chewable 1 tab PO DAILY Patient Comments: 06/08/18 restarted. [facility] 04/21/18 not taking. [facility] General Date/Time Provider Initiated Documentation: 09/17/25 12:00. HPI Narrative: MDM/Narrative: 84-year-old male with past medical history of B-cell lymphoma, lung mass, liver mass, chronic renal disease not on dialysis, presents for evaluation for worsening shortness of breath. Vitals notable for tachypnea and hypoxia on room air, with tachycardia. Physical exam is notable for decreased lung sounds on the right side, with some rales. Bedside echo shows B-lines in all lung hicks, no pericardial effusion, good lung sliding, and no obvious cardiac hypokinesis although cardiac windows are poor. Patient presentation is concerning for possible worsening renal function resulting in volume volume overload, new onset heart failure, pneumonia, sepsis, among other life-threatening etiologies. Will obtain screening chest x-ray, labs including troponin, CBC, CMP, BNP, COVID and flu. Clinical course: Supplemental oxygen nation as improved the patient's symptoms, resting comfortably now on 2 L via nasal cannula with improved work of breathing. Labs notable for relatively stable renal function, no leukocytosis. Elevated BNP in the setting of pulmonary can congestion on chest x-ray is consistent with new onset heart failure, patient endorses that he still making urine making acute renal failure unlikely. Will plan to diurese patient, case discussed with Dr. Diamond hospitalist who is amenable to admit the patient as long as he has good response to IV diuretic therapy here in the emergency department. As such we will place a Tan catheter and monitor for several hours for urine output. If patient is unable to produce urine then we will consider transfer to dialysis capable center. 14:43 Patient has put out approximately 225 mL of urine within the first 45 minutes following diuresis therapy. Case discussed with Dr. Underwood who is agreeable to admit patient here [facility] Clinical impression: Fluid overload Acute heart failure Disposition: Admit to [facility] HPI: 84-year-old male with past medical history of B-cell lymphoma, CKD stage V, presents for evaluation of worsening dyspnea x 2 weeks patient notes that symptoms initially began with a cough approximately 2 weeks ago lasting for several days which has since resolved, however the past 2 days is a severely worsening dyspnea on exertion and notes that sleeping at night is very difficult for the past 2 weeks. Denies any associated fever, chills nausea, vomiting, chest pain or any other new or concerning symptoms. ROS: Negative besides as mentioned above Exam: Gen: A&O elderly male increased work of breathing to the back HEENT: NCAT, EOMI, not icteric. External ears normal. No rhinorrhea. Moist mucous membranes. Neck: Supple, full range of motion, no observable masses, No meningeal sign. Lungs: Mild respiratory distress, decreased breath sounds on the right base, Rales bilaterally CV: RRR, no edema. Abdomen: Soft, nondistended, No rebound tenderness. MSK: No joint swelling, no redness. Skin: No rashes, petechiae, lesions. Normal color per patient. Neuro: Normal Gait, Grossly intact. Psych: Appropriate for situation. Rhythm: NSR Rate: 73 [place]: Normal axis Intervals: Normal intervals Other findings: LBBB, LVH, no acute ST/T changes Labs: Laboratory Tests Range/Units 09/17/25 09/17/25 09/17/25 12:18 12:23 12:32 WBC (4.4-10.8) 10^3/uL 5.91 RBC (4.36-5.78) 10^6/uL 3.65 L Hgb (13.5-17.5) g/dL 9.7 L Hct (40.0-50.0) % 32.6 L MCV (80-95) fL 89 MCH (27.0-33.0) pg 26.6 L MCHC (32.0-36.0) % 29.8 L RDW (11.8-14.1) % 16.3 H Plt Count (130-400) 10^3/uL 162 MPV (8.0-11.0) fL 11.2 H Immature Gran % % 0.3 Neutrophils % % 90.3 Lymphocytes % % 3.4 Monocytes % % 5.4 Eosinophils % % 0.3 Basophils % % 0.3 Nucleated RBC % (0.0-0.3) % 0.0 Absolute Neutrophils (1.2-6.7) 10^3/uL 5.33 Absolute Lymphocytes (1.2-3.4) 10^3/uL 0.20 L Absolute Monocytes (0.1-0.8) 10^3/uL 0.32 Absolute Eosinophils (0.0-0.7) 10^3/uL 0.02 Absolute Basophils (0.0-0.2) 10^3/uL 0.02 VBG pH (7.31-7.41) 7.31 VBG pCO2 (41-51) mmHg 53 H VBG pO2 mmHg 28 VBG HCO3 (23-28) mmol/L 27 VBG Total CO2 (24-29) mmol/L 26 VBG O2 Saturation % 43 VBG Base Excess (-2-3) mmol/L 0 VBG Lactate (<or=2.0) mmol/L 2.2 H* Sodium (136-145) mmol/L 139 Potassium (3.5-5.1) mmol/L 4.1 Chloride (98-107) mmol/L 99 Carbon Dioxide (21.0-32.0) mmol/L 27.1 Anion Gap (3-11) mmol/L 12.9 H BUN (7-18) mg/dL 52 H Creatinine (0.70-1.30) mg/dL 4.4 H* Est GFR (CKD-EPI 2020) (mL/min/1.73m2) 12.54 Glucose (74-106) mg/dL 117 H Calcium (8.5-10.1) mg/dL 8.5 Magnesium (1.8-2.4) mg/dL 1.9 Total Bilirubin (0.2-1.0) mg/dL 0.6 AST (15-37) U/L 10 L ALT (16-63) U/L 15 L Alkaline Phosphatase (46-116) U/L 99 Troponin I (<or=76) ng/L 124 H* NT-Pro-B Natriuret Pep (<300) pg/mL > 88172 H Total Protein (6.4-8.2) g/dL 8.9 H Albumin (3.4-5.0) g/dL 2.6 L COVID-19 Source Nasopharynx SARS-CoV-2 (PCR) (Negative) Negative Influenza Type A (PCR) (Negative) Negative Influenza Type B (PCR) (Negative) Negative RSV (PCR) (Negative) Negative ABO/Rh A Positive Antibody Screen POSITIVE Radiology: Exam(s) XR PORTABLE CHEST AP EXAM: XR PORTABLE CHEST AP CLINICAL HISTORY: dyspnea TECHNIQUE: 2D digital imaging was performed of the chest. One image was obtained. An AP view was obtained. COMPARISON: CR CHEST 2 VIEWS PA,LAT from 08/21/2015 CR,XR XR CHEST 2V PA LATERAL from 06/06/[address] ABDOMEN PELVIS WO from 04/21/2025 FINDINGS: MEDIASTINUM: Normal. HEART: It is difficult to evaluate the heart size secondary to the right basilar opacities. PULMONARY VASCULATURE: There is pulmonary venous congestion. LUNGS: Diffuse interstitial prominence is present. Opacities are seen in the inferior half of the right lung. PLEURAL SPACE: There is blunting of the right costophrenic angle suggesting a moderate pleural effusion. BONE:Within normal limits for the patient's age. OTHER FINDINGS:Normal. IMPRESSION: 1. Pulmonary venous congestion and a right pleural effusion. This may reflect fluid overload/congestive heart failure. Please correlate clinically. 2. Opacities in the right lung base. Differential considerations include pneumonia or atelectasis. A pulmonary mass cannot be excluded particularly in the right hilar region. 3. Following treatment for the acute abnormality, a CT scan of the chest should be considered. Related Data Home Medications Medication Instructions Recorded Confirmed aspirin 81 mg chewable tablet 1 tab PO DAILY 03/16/18 09/17/25 silver sulfadiazine 1 % topical 1 applic topical DAILY PRN wound 03/18/22 09/17/25 cream (Silvadene) healing #50 grams triamcinolone acetonide 0.5 % 1 applic topical BID psoriasis #45 09/23/22 09/17/25 topical cream grams amlodipine 2.5 mg tablet 2.5 mg PO DAILY #90 tabs 04/24/25 09/17/25 metoprolol tartrate 50 mg tablet 25 mg (1/2 x 50 mg) PO BID #90 tabs 04/24/25 09/17/25 pravastatin 20 mg tablet 20 mg PO DAILY #90 tabs 04/24/25 09/17/25 triamcinolone acetonide 0.1 % 1 applic topical BID PRN stasis 05/08/25 09/17/25 topical ointment ulcer #453.6 grams Previous Rx's Medication Instructions Recorded silver sulfadiazine 1 % topical 1 applic topical DAILY PRN wound 03/18/22 cream (Silvadene) healing #50 grams triamcinolone acetonide 0.5 % 1 applic topical BID psoriasis #45 09/23/22 topical cream grams amlodipine 2.5 mg tablet 2.5 mg PO DAILY #90 tabs 04/24/25 metoprolol tartrate 50 mg tablet 25 mg (1/2 x 50 mg) PO BID #90 tabs 04/24/25 pravastatin 20 mg tablet 20 mg PO DAILY #90 tabs 04/24/25 triamcinolone acetonide 0.1 % 1 applic topical BID PRN stasis 05/08/25 topical ointment ulcer #453.6 grams Allergies Allergy/AdvReac Type Severity Reaction Status Date / Time cephalexin (From Sha-Sha) AdvReac Intermediate Pt noted Verified 09/17/25 12:10 severe abdominal discomfort It was unreal General Stated Complaint: RespSymp FLOR: 2 Course Vital Signs Vital signs: Vital Signs Temperature 36.6 C 09/17/25 12:02 Pulse 74 09/17/25 12:02 Respiratory Rate 30 H 09/17/25 12:02 Blood Pressure 165/75 H 09/17/25 12:02 Pulse Oximetry 91 L 09/17/25 12:02 Temperature 36.6 C 09/17/25 12:09 Temperature Source Oral 09/17/25 12:09 Pulse 71 09/17/25 12:31 Pulse 71 09/17/25 12:31 Respiratory Rate 21 09/17/25 12:31 Blood Pressure 152/72 H 09/17/25 12:31 Blood Pressure Mean 101 09/17/25 12:31 Pulse Oximetry 96 09/17/25 12:31 Oxygen Delivery Method Nasal Cannula 09/17/25 12:09 Oxygen Flow Rate 2 09/17/25 12:09 Lab/Test Results Lab/Test Results: Laboratory Tests Range/Units 09/17/25 12:23 WBC (4.4-10.8) 10^3/uL 5.91 RBC (4.36-5.78) 10^6/uL 3.65 L Hgb (13.5-17.5) g/dL 9.7 L Hct (40.0-50.0) % 32.6 L MCV (80-95) fL 89 MCH (27.0-33.0) pg 26.6 L MCHC (32.0-36.0) % 29.8 L RDW (11.8-14.1) % 16.3 H Plt Count (130-400) 10^3/uL 162 MPV (8.0-11.0) fL 11.2 H Immature Gran % % 0.3 Neutrophils % % 90.3 Lymphocytes % % 3.4 Monocytes % % 5.4 Eosinophils % % 0.3 Basophils % % 0.3 Nucleated RBC % (0.0-0.3) % 0.0 Absolute Neutrophils (1.2-6.7) 10^3/uL 5.33 Absolute Lymphocytes (1.2-3.4) 10^3/uL 0.20 L Absolute Monocytes (0.1-0.8) 10^3/uL 0.32 Absolute Eosinophils (0.0-0.7) 10^3/uL 0.02 Absolute Basophils (0.0-0.2) 10^3/uL 0.02 VBG pH (7.31-7.41) 7.31 VBG pCO2 (41-51) mmHg 53 H VBG pO2 mmHg 28 VBG HCO3 (23-28) mmol/L 27 VBG Total CO2 (24-29) mmol/L 26 VBG O2 Saturation % 43 VBG Base Excess (-2-3) mmol/L 0 VBG Lactate (<or=2.0) mmol/L 2.2 H* Medical Decision Making Quality:SDOH Health Related Social Needs: Health related social needs transpo insecurity house/econ circumstance PFSH All Active Problems (Updated 09/17/25 @ 14:00 by Moises Akins MD) New onset of congestive heart failure (Acute) Fluid overload (Acute) Cough (Acute) B-cell lymphoma (Acute) Abnormal finding on imaging (Acute) Stage 5 chronic kidney disease (Acute) Arthritis (Acute) Acute on chronic renal failure (Acute) Hyperkalemia (Acute) Acute renal failure (Acute) Shingles (Acute) Venous ulcer of left leg (Acute) Lung mass (Acute) Heart murmur (Chronic) Acute kidney injury superimposed on chronic kidney disease (Acute) Dehydration (Acute) Hypomagnesemia (Acute) Syncope and collapse (Acute) Spinal stenosis (Acute) GERD (gastroesophageal reflux disease) (Chronic) Weight loss, abnormal (Acute) Atherosclerosis of artery of both lower extremities (Acute) Venous stasis dermatitis of both lower extremities (Acute) Aneurysm of right iliac artery (Acute) Non-healing ulcer of foot with fat layer exposed (Acute) Chronic ulcer of left lower extremity with fat layer exposed (Acute) Venous stasis ulcer of ankle (Acute) Smoker unmotivated to quit (Chronic) Myocardial infarction (Acute 10/08/84) Status post carotid endarterectomy (Acute) Status post phlebectomy (Acute) Compression fracture of lumbar spine, non-traumatic (Acute) Abdominal aortic aneurysm (AAA) without rupture (Acute 05/27/16) 3.5cm 05/24 CT scan Abnormal thyroid stimulating hormone (TSH) level (Acute 06/02/17) Chronic suppressed TSH. Normal T3, T4. Anemia (Acute 06/02/17) chronic normocystic. No etiology found. Bundle branch block, unspecified (Acute) left Carotid artery stenosis (Acute) Cataract (Acute) O.D. 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 likely due to DM Psoriasis (Acute) Right rotator cuff tear (Acute 02/20/15) Smell or taste problem (Acute) Syncope and collapse (Acute) ? 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 Sister No problems noted. Social History Smoking/Tobacco Use Status: Current every day Tobacco Type: pipe Smoking risk assessment performed?: Yes Alcohol Intake: current Alcohol Intake frequency: 0-2 drinks per day Substance use type: does not use Housing: house Current gender identity: male Do you feel safe at home: Yes Do you feel safe in your relationship?: Yes POCUS Exam (ED) Limited Cardiac Exam DATE OF EXAM: 09/17/25 TIME OF EXAM: 12:46 PROVIDER THAT PERFORMED THE STUDY: Moises Akins IS THIS A REPEAT EXAM DURING THIS ENCOUNTER: no REASON FOR EXAM: Dyspnea VISUALIZED STRUCTURES: Four Chambers, Left ventricle and LVOT VIEW OBTAINED: Apical 4-Chamber, Parasternal long-axis, Parasternal short-axis, Subxiphoid and Other (Views limitd due to poor windowing.) PERTINENT FINDINGS/IMPRESSION: Other (Windows limiting study) No pericardial effusion, no gross hypokinesia of the LV, no RV dilatation, otherwise limited cardiac study. Noted B-lines in peripheral lungs hicks b/l. ; No LV dysfunction, No pericardial effusion and No RV dilation Exam complete
[2025-09-17 12:55] LABS: ALT 15 U/L (16-63); AST 10 U/L (15-37); Albumin 2.6 g/dL (3.4-5.0); Alkaline Phosphatase 99 U/L (46-116); Anion Gap 12.9 mmol/L (3-11); BUN 52 mg/dL (7-18); Bilirubin, Total 0.6 mg/dL (0.2-1.0); CO2 27.1 mmol/L (21.0-32.0); Calcium 8.5 mg/dL (8.5-10.1); Chloride 99 mmol/L (98-107); Glucose 117 mg/dL (74-106); Magnesium 1.9 mg/dL (1.8-2.4); Potassium 4.1 mmol/L (3.5-5.1); Sodium 139 mmol/L (136-145); Total Protein 8.9 g/dL (6.4-8.2)
[2025-09-17 12:58] LABS: COVID-19 PCR Negative (Negative); RSV PCR Negative (Negative)
[2025-09-17 13:03] LABS: Troponin I 124 ng/L (<or=76)
[2025-09-17] MEDS: Furosemide 40 MG/4 ML VIAL (13:50)
[2025-09-17 14:11] LABS: Troponin I 118 ng/L (<or=76)
--- NOTE | 2025-09-17 14:45 | W.PM.HP.N ---
Date of service: 09/17/25 Time of Service: 14:45 Assessment and Plan Assessment and plan (1) Heart failure: Status: Acute Assessment and plan: received diuretics in the ED monitor I&O closely overnight check daily weights echocardiogram in am (2) Stage 5 chronic kidney disease: Status: Acute Assessment and plan: stable and at baseline avoid nephrotoxic drugs renal dose as needed monitor electrolytes and kidney function closely monitor I&O closely (3) Essential hypertension: Status: Chronic Assessment and plan: routine monitoring, adjust meds as needed (4) Hyperlipidemia: Status: Acute Assessment and plan: continue home meds discussed with DR Diamond History of Present Illness History of Present Illness Chief Complaint: shortness of breath Narrative: This is an 84 year male history of chronic kidney disease stage 5 who presents with increased shortness of breath he has been experiencing with symptoms worse at night and he describes as claustophobia, feeling like he is panicking. he denies any chest pain, fever chills or recent illness. he states he has some edema but it is not worsened from his baseline. His work up in the ED is concerning for fluid overload. he recieved IV diuretics and is producing urine. Hospitalist services is asked to admit the med/surg for further management and evaluation. Review of Systems All systems reviewed & are unremarkable except as noted in HPI and below PFSH All Active Problems (Updated 09/17/25 @ 16:09 by Johanne Nunez NP) Heart failure (Acute) New onset of congestive heart failure (Acute) Fluid overload (Acute) Cough (Acute) B-cell lymphoma (Acute) Abnormal finding on imaging (Acute) Stage 5 chronic kidney disease (Acute) Arthritis (Acute) Acute on chronic renal failure (Acute) Hyperkalemia (Acute) Acute renal failure (Acute) Shingles (Acute) Venous ulcer of left leg (Acute) Lung mass (Acute) Heart murmur (Chronic) Acute kidney injury superimposed on chronic kidney disease (Acute) Dehydration (Acute) Hypomagnesemia (Acute) Syncope and collapse (Acute) Spinal stenosis (Acute) GERD (gastroesophageal reflux disease) (Chronic) Weight loss, abnormal (Acute) Atherosclerosis of artery of both lower extremities (Acute) Venous stasis dermatitis of both lower extremities (Acute) Aneurysm of right iliac artery (Acute) Non-healing ulcer of foot with fat layer exposed (Acute) Chronic ulcer of left lower extremity with fat layer exposed (Acute) Venous stasis ulcer of ankle (Acute) Smoker unmotivated to quit (Chronic) Myocardial infarction (Acute 10/08/84) Status post carotid endarterectomy (Acute) Status post phlebectomy (Acute) Compression fracture of lumbar spine, non-traumatic (Acute) Abdominal aortic aneurysm (AAA) without rupture (Acute 05/27/16) 3.5cm 05/24 CT scan Abnormal thyroid stimulating hormone (TSH) level (Acute 06/02/17) Chronic suppressed TSH. Normal T3, T4. Anemia (Acute 06/02/17) chronic normocystic. No etiology found. Bundle branch block, unspecified (Acute) left Carotid artery stenosis (Acute) Cataract (Acute) O.D. 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 likely due to DM Psoriasis (Acute) Right rotator cuff tear (Acute 02/20/15) Smell or taste problem (Acute) Syncope and collapse (Acute) ? secondary to medications Tobacco use disorder (Acute) pipe Varicose veins of lower extremity with ulcer (Acute) Surgical History PROCEDURES ENDARTERECTOMY NOS left carotid LEG VEIN EXCISION, 2008 left leg; chronic venous ulcers [place]OPSY 06/01/18 [facility] [place] Family History Mother Personal history of malignant neoplasm ovarian Heart disease Hyperlipidemia Father Heart disease Sister No problems noted. Sister No problems noted. Social History Smoking/Tobacco Use Status: Current every day Tobacco Type: pipe Smoking risk assessment performed?: Yes Alcohol Intake: current Alcohol Intake frequency: 0-2 drinks per day Substance use type: does not use Housing: house Current gender identity: male Do you feel safe at home: Yes Do you feel safe in your relationship?: Yes Meds Allergies and Home Medications Allergies Allergy/AdvReac Type Severity Reaction Status Date / Time cephalexin (From Keflex) AdvReac Intermediate Pt noted Verified 09/17/25 12:10 severe abdominal discomfort It was unreal Home Medications Medication Instructions Recorded Confirmed Type aspirin 81 mg chewable tablet 1 tab PO DAILY 03/16/18 09/17/25 History silver sulfadiazine 1 % topical 1 applic topical DAILY PRN wound 03/18/22 09/17/25 Rx cream (Silvadene) healing #50 grams triamcinolone acetonide 0.5 % 1 applic topical BID psoriasis #45 09/23/22 09/17/25 Rx topical cream grams amlodipine 2.5 mg tablet 2.5 mg PO DAILY #90 tabs 04/24/25 09/17/25 Rx metoprolol tartrate 50 mg tablet 25 mg (1/2 x 50 mg) PO BID #90 tabs 04/24/25 09/17/25 Rx pravastatin 20 mg tablet 20 mg PO DAILY #90 tabs 04/24/25 09/17/25 Rx triamcinolone acetonide 0.1 % 1 applic topical BID PRN stasis 05/08/25 09/17/25 Rx topical ointment ulcer #453.6 grams Exam Narrative Exam Narrative: Well-appearing male of stated age in no acute distress head is atraumatic eyes nonicteric noninjected oral mucosas moist neck no JVD cardiovascular regular rate and rhythm respirations even and unlabored abdomen soft benign extremities without edema moves all extremities voiding without difficulty neurologic he is awake alert oriented no focal deficits psychiatric appropriate mood and affect Results Labs 09/18/25 05:58 09/18/25 05:58 Labs: Laboratory Results - last 24 hr 09/17/25 09/17/25 09/17/25 12:18 12:23 12:32 WBC 5.91 RBC 3.65 L Hgb 9.7 L Hct 32.6 L MCV 89 MCH 26.6 L MCHC 29.8 L RDW 16.3 H Plt Count 162 MPV 11.2 H Immature Gran % 0.3 Neutrophils % 90.3 Lymphocytes % 3.4 Monocytes % 5.4 Eosinophils % 0.3 Basophils % 0.3 Nucleated RBC % 0.0 Absolute Neutrophils 5.33 Absolute Lymphocytes 0.20 L Absolute Monocytes 0.32 Absolute Eosinophils 0.02 Absolute Basophils 0.02 VBG pH 7.31 VBG pCO2 53 H VBG pO2 28 VBG HCO3 27 VBG Total CO2 26 VBG O2 Saturation 43 VBG Base Excess 0 VBG Lactate 2.2 H* Sodium 139 Potassium 4.1 Chloride 99 Carbon Dioxide 27.1 Anion Gap 12.9 H BUN 52 H Creatinine 4.4 H* Est GFR (CKD-EPI 2020) 12.54 Glucose 117 H Calcium 8.5 Magnesium 1.9 Total Bilirubin 0.6 AST 10 L ALT 15 L Alkaline Phosphatase 99 Troponin I 124 H* NT-Pro-B Natriuret Pep > 90278 H Total Protein 8.9 H Albumin 2.6 L COVID-19 Source Nasopharynx SARS-CoV-2 (PCR) Negative Influenza Type A (PCR) Negative Influenza Type B (PCR) Negative RSV (PCR) Negative ABO/Rh A Positive Antibody Screen POSITIVE 09/17/25 13:33 WBC RBC Hgb Hct MCV MCH MCHC RDW Plt Count MPV Immature Gran % Neutrophils % Lymphocytes % Monocytes % Eosinophils % Basophils % Nucleated RBC % Absolute Neutrophils Absolute Lymphocytes Absolute Monocytes Absolute Eosinophils Absolute Basophils VBG pH VBG pCO2 VBG pO2 VBG HCO3 VBG Total CO2 VBG O2 Saturation VBG Base Excess VBG Lactate Sodium Potassium Chloride Carbon Dioxide Anion Gap BUN Creatinine Est GFR (CKD-EPI 2020) Glucose Calcium Magnesium Total Bilirubin AST ALT Alkaline Phosphatase Troponin I 118 H* NT-Pro-B Natriuret Pep Total Protein Albumin COVID-19 Source SARS-CoV-2 (PCR) Influenza Type A (PCR) Influenza Type B (PCR) RSV (PCR) ABO/Rh Antibody Screen Last Vital Signs Temp 36.6 C 09/17/25 12:09 Pulse 71 09/17/25 12:31 Resp 21 09/17/25 12:31 BP 152/72 H 09/17/25 12:31 Pulse Ox 96 09/17/25 12:31 Time Spent Time spent with Patient: 55-74 minutes Time was spent: preparing to see the patient(eg.review tests), obtaining and/or reviewing separately otained hiistory, ordering medications,tests, procedures, referring, communicating with other health child care attendant and indepentently interpreting results
[2025-09-17 15:11] LABS: Lab Add On Test DONE
[2025-09-17 15:42] LABS: Procalcitonin 0.17 ng/mL
--- NOTE | 2025-09-17 16:10 | NUR.NOTE ---
Access chart to reconcile EKG orders with EKG's in [facility]. Nursing Note:
--- NOTE | 2025-09-17 16:55 | W.PC.ACHO ---
Registration Status: REG ER Primary Language: Preferred Language: Sami ED Information & Data Chief Complaint RespSymp 09/17/25 12:49 Triage Note Pt complaining of SOB for 2 09/17/25 12:02 weeks. recent had a cold. being treated for lymphoma at [facility] (Last Reviewed 12/06/24 @ 19:38 by Herb Miller) PROCEDURES BIOPSY Most Recent Vital Signs Temperature 36.2 C L 09/17/25 16:45 Temperature Source Temporal Artery Scan 09/17/25 15:50 Pulse 73 09/17/25 16:45 Pulse 71 09/17/25 12:31 Respiratory Rate 21 09/17/25 16:45 Respiratory Effort Short of Breath, Incrsd Work of Breathing 09/17/25 14:14 Blood Pressure 144/79 H 09/17/25 16:45 Blood Pressure Mean 100 09/17/25 15:50 Pulse Oximetry 97 09/17/25 16:45 Oxygen Delivery Method Nasal Cannula 09/17/25 15:50 Oxygen Flow Rate 2 09/17/25 15:50 Allergies cephalexin (From Keflex) Adverse Reaction (Intermediate, Verified 09/17/25 12:10) Pt noted severe abdominal discomfort It was unreal Precautions Isolation Standard precaution 09/17/25 12:10 IV IV Catheter Type [Right Saline Lock Forearm] IV Catheter Gauge [Right 18 Forearm] Diet Orders Category Date Time Status Low Sodium [DIET] Nutrition 09/17/25 Dinner Active Diagnostics 09/17/25 09/17/25 09/17/25 Range/Units 13:33 12:32 12:23 WBC 5.91 (4.4-10.8) 10^3/uL RBC 3.65 L (4.36-5.78) 10^6/uL Hgb 9.7 L (13.5-17.5) g/dL Hct 32.6 L (40.0-50.0) % MCV 89 (80-95) fL MCH 26.6 L (27.0-33.0) pg MCHC 29.8 L (32.0-36.0) % RDW 16.3 H (11.8-14.1) % Plt Count 162 (130-400) 10^3/uL MPV 11.2 H (8.0-11.0) fL Immature Gran % 0.3 % Neutrophils % 90.3 % Lymphocytes % 3.4 % Monocytes % 5.4 % Eosinophils % 0.3 % Basophils % 0.3 % Nucleated RBC % 0.0 (0.0-0.3) % Absolute Neutrophils 5.33 (1.2-6.7) 10^3/uL Absolute Lymphocytes 0.20 L (1.2-3.4) 10^3/uL Absolute Monocytes 0.32 (0.1-0.8) 10^3/uL Absolute Eosinophils 0.02 (0.0-0.7) 10^3/uL Absolute Basophils 0.02 (0.0-0.2) 10^3/uL VBG pH 7.31 (7.31-7.41) VBG pCO2 53 H (41-51) mmHg VBG pO2 28 mmHg VBG HCO3 27 (23-28) mmol/L VBG Total CO2 26 (24-29) mmol/L VBG O2 Saturation 43 % VBG Base Excess 0 (-2-3) mmol/L VBG Lactate 2.2 H* (<or=2.0) mmol/L Sodium 139 (136-145) mmol/L Potassium 4.1 (3.5-5.1) mmol/L Chloride 99 (98-107) mmol/L Carbon Dioxide 27.1 (21.0-32.0) mmol/L Anion Gap 12.9 H (3-11) mmol/L BUN 52 H (7-18) mg/dL Creatinine 4.4 H* (0.70-1.30) mg/dL Est GFR (CKD-EPI 2020) 12.54 (mL/min/1.73m2) Glucose 117 H (74-106) mg/dL Calcium 8.5 (8.5-10.1) mg/dL Magnesium 1.9 (1.8-2.4) mg/dL Total Bilirubin 0.6 (0.2-1.0) mg/dL AST 10 L (15-37) U/L ALT 15 L (16-63) U/L Alkaline Phosphatase 99 (46-116) U/L Troponin I 118 H* 124 H* (<or=76) ng/L NT-Pro-B Natriuret Pep > 68973 H (<300) pg/mL Total Protein 8.9 H (6.4-8.2) g/dL Albumin 2.6 L (3.4-5.0) g/dL Procalcitonin 0.17 ng/mL COVID-19 Source SARS-CoV-2 (PCR) (Negative) Influenza Type A (PCR) (Negative) Influenza Type B (PCR) (Negative) RSV (PCR) (Negative) Add-On Test Request DONE ABO/Rh A Positive Antibody Screen POSITIVE Antibody Identification Pending 09/17/25 Range/Units 12:18 WBC (4.4-10.8) 10^3/uL RBC (4.36-5.78) 10^6/uL Hgb (13.5-17.5) g/dL Hct (40.0-50.0) % MCV (80-95) fL MCH (27.0-33.0) pg MCHC (32.0-36.0) % RDW (11.8-14.1) % Plt Count (130-400) 10^3/uL MPV (8.0-11.0) fL Immature Gran % % Neutrophils % % Lymphocytes % % Monocytes % % Eosinophils % % Basophils % % Nucleated RBC % (0.0-0.3) % Absolute Neutrophils (1.2-6.7) 10^3/uL Absolute Lymphocytes (1.2-3.4) 10^3/uL Absolute Monocytes (0.1-0.8) 10^3/uL Absolute Eosinophils (0.0-0.7) 10^3/uL Absolute Basophils (0.0-0.2) 10^3/uL VBG pH (7.31-7.41) VBG pCO2 (41-51) mmHg VBG pO2 mmHg VBG HCO3 (23-28) mmol/L VBG Total CO2 (24-29) mmol/L VBG O2 Saturation % VBG Base Excess (-2-3) mmol/L VBG Lactate (<or=2.0) mmol/L Sodium (136-145) mmol/L Potassium (3.5-5.1) mmol/L Chloride (98-107) mmol/L Carbon Dioxide (21.0-32.0) mmol/L Anion Gap (3-11) mmol/L BUN (7-18) mg/dL Creatinine (0.70-1.30) mg/dL Est GFR (CKD-EPI 2020) (mL/min/1.73m2) Glucose (74-106) mg/dL Calcium (8.5-10.1) mg/dL Magnesium (1.8-2.4) mg/dL Total Bilirubin (0.2-1.0) mg/dL AST (15-37) U/L ALT (16-63) U/L Alkaline Phosphatase (46-116) U/L Troponin I (<or=76) ng/L NT-Pro-B Natriuret Pep (<300) pg/mL Total Protein (6.4-8.2) g/dL Albumin (3.4-5.0) g/dL Procalcitonin ng/mL COVID-19 Source Nasopharynx SARS-CoV-2 (PCR) Negative (Negative) Influenza Type A (PCR) Negative (Negative) Influenza Type B (PCR) Negative (Negative) RSV (PCR) Negative (Negative) Add-On Test Request ABO/Rh Antibody Screen Antibody Identification Intake and Output - 24 Hour Total 09/17/25 11:58 thru 09/17/25 15:23 Intake Total 30 Output Total 325 Balance -295 Weight 95.3 kg Intake: IV 30 Output: Urine 325 Falls Risk Assessment History of Falls No History 09/17/25 13:54 Contributing Factors Impairments 09/17/25 13:54 Ambulatory Aids Uses ambulatory device 09/17/25 13:54 Tubes/Lines None 09/17/25 13:54 Gait Evaluation W/no contributing factors 09/17/25 13:54 Cognition No cognitive impairment 09/17/25 13:54 Fall Total Score 28 09/17/25 13:54 Level of Risk Moderate Risk 09/17/25 13:54 Problems (Last Reviewed 12/06/24 @ 19:38 by Herb Miller) Heart failure (Acute) New onset of congestive heart failure (Acute) Fluid overload (Acute) Stage 5 chronic kidney disease (Acute) Essential hypertension (Chronic) Hyperlipidemia (Acute) Notes 09/17/25 16:10 Nursing Notes by Ana M Mcmullen Access chart to reconcile EKG orders with EKG's in [facility]. Nursing Note: Initialized on 09/17/25 16:10 - END OF NOTE Attestation Statement: By documenting the first initial, last name, and credentials of the reporting nurse below, both parties acknowledge that all relevant information regarding the patient handoff has been communicated, and that all questions have been addressed to ensure continuity and safety of care. Additional Patient Information/Comments: Report Received From: C/o SOB increasing x 2 weeks, bilateral crackles and increased WOB, placed on 2L NC, LA 2.2 BP 144/79, 21RR, 73HR, 36.2C, 97% on 2L NC TROP 124, down to 118. BISHOP Arnett
[2025-09-17] MEDS: Metoprolol 50 MG TAB 25 MG PO (20:16)
[2025-09-18 00:38] VITALS: BP 134/88; PULSE 84; TEMP 36.6; O2SAT 96
[2025-09-18 01:00] VITALS: O2SAT 96
[2025-09-18 06:49] LABS: Abs Immature Grans 0.02 10^3/uL (0.0-0.06); HCT 29.3 % (40.0-50.0); HGB 8.9 g/dL (13.5-17.5); Immature Grans % 0.5 %; MCH 26.7 pg (27.0-33.0); MCHC 30.4 % (32.0-36.0); MCV 88 fL (80-95); MPV 12.0 fL (8.0-11.0); Platelet Count 144 10^3/uL (130-400); RBC 3.33 10^6/uL (4.36-5.78); RDW 16.8 % (11.8-14.1); RDW-SD 54.1 fL; WBC 4.40 10^3/uL (4.4-10.8)
[2025-09-18 07:03] LABS: Anion Gap 11.6 mmol/L (3-11); BUN 57 mg/dL (7-18); CO2 27.4 mmol/L (21.0-32.0); Calcium 8.3 mg/dL (8.5-10.1); Chloride 101 mmol/L (98-107); Glucose 80 mg/dL (74-106); Potassium 4.0 mmol/L (3.5-5.1); Sodium 140 mmol/L (136-145)
[2025-09-18 07:46] VITALS: BP 146/67; PULSE 66; RESP 16; TEMP 36.5; O2SAT 99
[2025-09-18] MEDS: amLODIPine 2.5 MG TAB PO (09:57)
[2025-09-18] MEDS: Enoxaparin 40 MG/0.4 ML SYR SC (09:57)
[2025-09-18] MEDS: Aspirin 81 MG CHEW PO (09:57)
[2025-09-18] MEDS: Pravastatin 20 MG TAB PO (09:57)
[2025-09-18] MEDS: Metoprolol 50 MG TAB 25 MG PO ×2 (09:57→20:35)
--- NOTE | 2025-09-18 10:26 | W.PM.PROGNOT ---
Date of Service Date of service: 09/18/25 Time of Service: 10:26 Assessment and Plan Assessment and plan (1) Heart failure: Status: Acute Assessment and plan: received diuretics in the ED Lasix 40 mg IVP BID then transition to oral prior too discharge Continue to monitor I&O Trend lytes Ongoing daily weights Echocardiogram completed LVEF 45-50%, mild global hypokinesis; IVC collapsing < 50% on inspiration Physical therapy Trend Oxygen for sat 92-94% (2) Stage 5 chronic kidney disease: Status: Acute Assessment and plan: Remains stable and at baseline Continue to avoid nephrotoxic drugs Ongoing renal dosing as needed Continue to monitor electrolytes and kidney function closely Ongoing close monitoring of I&O Palliative care consult (3) Essential hypertension: Status: Chronic Assessment and plan: Continue routine monitoring, and PRN adjustment of meds BP 134/88 - 146/67 (4) Abdominal aortic aneurysm (AAA) without rupture: Status: Acute Assessment and plan: infrarenal fusiform AAA up to 3.5 cm outpatient monitoring - control BP with home meds and adjust PRN (5) Anemia: Status: Acute Assessment and plan: H&H 8.9 & 29.3 - stable (6) Venous ulcer: Status: Acute Assessment and plan: LLE venous ulcer - managed outpatient at wound clinic Wound consult (7) Hyperlipidemia: Status: Acute Assessment and plan: Ongoing home meds (8) On deep vein thrombosis (DVT) prophylaxis: Status: Resolved Assessment and plan: Renal dosing of LMWH discussed with Dr Diamond Subjective Subjective Patient reports: feels better, tolerating liquids well, tolerating a regular diet, voiding w/o difficulty, bowel movement and shortness of breath; denies diarrhea, nausea, vomiting or fever Exam Narrative Exam Narrative: Well-appearing male of stated age in no acute distress , eyes nonicteric noninjected oral mucosas moist neck, neurologic: awake alert oriented no focal deficits respirations even and unlabored ,shallow , diminished breath sounds left base, heart is regular- rate and rhythm, abdomen soft benign extremities without edema moves all extremities voiding without difficulty psychiatric appropriate mood and affect Objective Last Vital Signs Temp 36.5 C 09/18/25 07:46 Pulse 66 09/18/25 07:46 Resp 16 09/18/25 07:46 BP 146/67 H 09/18/25 07:46 Pulse Ox 99 09/18/25 07:46 Laboratory Results - last 24 hr 11/09/25 11/09/25 11/09/25 12:18 12:23 12:32 WBC 5.91 RBC 3.65 L Hgb 9.7 L Hct 32.6 L MCV 89 MCH 26.6 L MCHC 29.8 L RDW 16.3 H Plt Count 162 MPV 11.2 H Immature Gran % 0.3 Neutrophils % 90.3 Lymphocytes % 3.4 Monocytes % 5.4 Eosinophils % 0.3 Basophils % 0.3 Nucleated RBC % 0.0 Absolute Neutrophils 5.33 Absolute Lymphocytes 0.20 L Absolute Monocytes 0.32 Absolute Eosinophils 0.02 Absolute Basophils 0.02 VBG pH 7.31 VBG pCO2 53 H VBG pO2 28 VBG HCO3 27 VBG Total CO2 26 VBG O2 Saturation 43 VBG Base Excess 0 VBG Lactate 2.2 H* Sodium 139 Potassium 4.1 Chloride 99 Carbon Dioxide 27.1 Anion Gap 12.9 H BUN 52 H Creatinine 4.4 H* Est GFR (CKD-EPI 2020) 12.54 Glucose 117 H Calcium 8.5 Magnesium 1.9 Total Bilirubin 0.6 AST 10 L ALT 15 L Alkaline Phosphatase 99 Troponin I 124 H* NT-Pro-B Natriuret Pep > 80862 H Total Protein 8.9 H Albumin 2.6 L Procalcitonin COVID-19 Source Nasopharynx SARS-CoV-2 (PCR) Negative Influenza Type A (PCR) Negative Influenza Type B (PCR) Negative RSV (PCR) Negative Add-On Test Request DONE ABO/Rh A Positive Antibody Screen POSITIVE 09/17/25 09/18/25 13:33 05:58 WBC 4.40 RBC 3.33 L Hgb 8.9 L Hct 29.3 L MCV 88 MCH 26.7 L MCHC 30.4 L RDW 16.8 H Plt Count 144 MPV 12.0 H Immature Gran % 0.5 Neutrophils % 82.9 Lymphocytes % 6.6 Monocytes % 7.7 Eosinophils % 1.6 Basophils % 0.7 Nucleated RBC % 0.0 Absolute Neutrophils 3.65 Absolute Lymphocytes 0.29 L Absolute Monocytes 0.34 Absolute Eosinophils 0.07 Absolute Basophils 0.03 VBG pH VBG pCO2 VBG pO2 VBG HCO3 VBG Total CO2 VBG O2 Saturation VBG Base Excess VBG Lactate Sodium 140 Potassium 4.0 Chloride 101 Carbon Dioxide 27.4 Anion Gap 11.6 H BUN 57 H Creatinine 4.3 H* Est GFR (CKD-EPI 2020) 12.89 Glucose 80 Calcium 8.3 L Magnesium Total Bilirubin AST ALT Alkaline Phosphatase Troponin I 118 H* NT-Pro-B Natriuret Pep Total Protein Albumin Procalcitonin 0.17 COVID-19 Source SARS-CoV-2 (PCR) Influenza Type A (PCR) Influenza Type B (PCR) RSV (PCR) Add-On Test Request ABO/Rh Antibody Screen Time Spent with Patient Time Spent with Patient: >50 minutes Time was spent: preparing to see the patient(eg.review tests), obtaining and/or reviewing separately otained hiistory, ordering medications,tests, procedures, referring, communicating with other health home care specialist, indepentently interpreting results, counseling the patient, care coordination and other
[2025-09-18 14:02] LABS: Magnesium 1.9 mg/dL (1.8-2.4)
[2025-09-18] MEDS: Furosemide 40 MG/4 ML VIAL IVP ×2 (14:22→18:15)
[2025-09-18] MEDS: Normal Saline Flush 10 ML SYR ×2 (14:23→18:17)
--- NOTE | 2025-09-18 15:12 | PHA.REVIEW2 ---
Pharmacy Admission Review Admission Clinical Review Admission Pharmacy Review: Heart failure (Acute) New onset of congestive heart failure (Acute) Fluid overload (Acute) Stage 5 chronic kidney disease (Acute) Hyperlipidemia (Acute) cephalexin (From Keflex) Adverse Reaction (Intermediate, Verified 09/17/25 12:10) Pt noted severe abdominal discomfort It was unreal Resuscitation Status DNR/DNI Height 5 ft 10 in Weight 87.6 kg Pharmacy Admission Review Renal Dosing Renal Dosing: BUN 57 mg/dL (7-18) H 09/18/25 05:58 Creatinine 4.3 mg/dL (0.70-1.30) H* 09/18/25 05:58 Medications needing adjustments: Intervened (crcl=14; recommended to renally adjust enoxaparin to from 40mg to 30mg sc daily. ) Anticoagulation Anticoagulation: Hgb 8.9 g/dL (13.5-17.5) L 09/18/25 05:58 Hct 29.3 % (40.0-50.0) L 09/18/25 05:58 Plt Count 144 10^3/uL (130-400) 09/18/25 05:58 Creatinine 4.3 mg/dL (0.70-1.30) H* 09/18/25 05:58 DVT Prophylaxis: Reviewed Medications: Enoxaparin Opiate Usage Evaluate Pain Scale/Pains Meds: N/A Relevant Labs Relevant Labs: Sodium 140 mmol/L (136-145) 09/18/25 05:58 Potassium 4.0 mmol/L (3.5-5.1) 09/18/25 05:58 Chloride 101 mmol/L (98-107) 09/18/25 05:58 Magnesium 1.9 mg/dL (1.8-2.4) 09/18/25 05:58 Electrolytes, C-Reactive P, ESR: Reviewed DM Control DM Control: Reviewed (am glucose=80) Cardiac Review Cardiac Review: Troponin I 118 ng/L (<or=76) H* 09/17/25 13:33 NT-Pro-B Natriuret Pep > 81802 pg/mL (<300) H 09/17/25 12:23 BP, HR, EF%: Reviewed (wt=535/67; hr=66; on home metoprolol) QTc Review QTc: Reviewed (last hka=818 from todd'25) IV to PO Switch IV Medications: Reviewed (all meds po except for furosemide) Home Meds Home Med List reviewed: Reviewed (all home meds ordered) Current Meds Current Medication Order Review: Reviewed Pharmacy Antibiotic Review Relevant Labs: Relevant Labs 09/17/25 13:33 Procalcitonin 0.17 Pharmacy Antibiotic Activity: 48 hour review (no antibiotics ordered at this time)
[2025-09-18 18:12] VITALS: O2SAT 97
[2025-09-18 18:45] VITALS: O2SAT 92
--- NOTE | 2025-09-18 18:55 | INITIAL_ITS ---
Date of service: 09/18/25 Time of Service: 18:55 Care Management Initial Assmt Initial Assessment Reason for Hospitalization: Heart failure Functional Status/Living Situation Patient Presentation: Sameer was sitting up in his chair when CM met with him. He was having his O2 saturation checked, as he feels that he needs supplemental O2; he is on room air, and was 91%, per RT. He was talkative, and stated that he lives in [place] with his , Meseret, of 65 years. Together they have four children and nine grand children. He uses a cane to ambulate, but is otherwise independent with his own care; he and his help each other out around the house. He reported that he worked in [employer] for years, and worked for the town of [place] as well. He expressed some worry about not having supplemental O2 overnight, as he does not want to feel like he is being suffocated, which was what brought him to the ED. He stated that he is feeling better, but was still feeling that he would benefit from O2. CM assured him that staff would be checking in on him overnight, and are there to help, if he needs support. He stated that he does not have any community services at this time, and does not feel that he will need any upon discharge. CM will continue to follow. Town of Residence: [place] Resides with: Spouse Significant Other/Family: Local [employer]: , Meseret Four children, nine grandchildren Employment Status: Retired Instrumental Activities of Daily Living (ADLs): Independent Medications Medication Management: No Issues/Barriers identified Physical Functioning/Mobility Assistive Device: cane Advance Directives Advance Directives: Do you have an Advance Directive: Y , 11:56 AD On File at [facility]: Y 06/07/23, 07:14 Date Asked 06/10/11 09/17/25, 12:02 AD Date Reviewed 09/17/25 09/17/25, 12:02 COLST On File at [facility] No 06/06/23, 21:09 COLST Date Scanned Code Status Resuscitation Status DNR/DNI Insurance Coverage/Financial Issues Insurance: [place] [employer] [facility] supplement Care Team Visit Care Team Role Provider Type Madison Orozco APRN MD [facility] STAFF PHYSICIAN Marino Nieto MD Primary Care Provider [facility] STAFF PHYSICIAN InPatient Daniel Espinal Other Providers OTHER Moises Akins MD Emergency Provider [facility] STAFF PHYSICIAN Rhett Diamond MD Admit Provider [facility] STAFF PHYSICIAN Attending Provider Discharge Potential Discharge Needs: PCP F/U Appt Anticipated Barriers to Discharge: None Identified Patient/Family Education Needs: Review discharge instructions, discuss Ask Me Three Transportation: Private vehicle Plan: Anticipate Sameer will return home once medically cleared. He will transport via private vehicle by family. He will follow up with his PCP and discharge plan of care. CM will continue to follow. Social Determinants of Health Screening Social Determinants of health last assessed in clinic: 09/18/25 Will the Patient Participate in the Screening?: Yes Do you worry about having a steady place to live?: no Problems where you live: no known problems In the past 12 months, have you had to go without electric, gas, oil or water in your home?: no 1. Within the past 12 months, we worried whether our food would run out before we got money to buy more.: Don't know/refused 2. Within the past 12 months, the food we bought just didn't last and we didn't have money to get more.: Don't know/refused Has lack of transportation kept you from medical appointments or from doing things needed for daily living?: no Has anyone in your life made you feel unsafe or unsupported?: no How hard is it for you to pay for the very basics like food, housing, medical care, and heating? Would you say it is:: Not hard at all Do you want help finding or keeping work or a job?: I do not need or want help If for any reason you need help with day-to-day activities such as bathing, preparing meals, shopping, managing finances, etc., do you get the help you need?: I don’t need any help How often do you feel lonely or isolated from those around you?: Sometimes Do you speak a language other than Chadian at home?: Yes Health Related Social Needs Health related social needs: feeling lonely/isolated (Z60.8) and education (Z55.6) Health related social needs details: requesting no assistance PFSH All Active Problems (Updated 09/18/25 @ 16:02 by Madison Orozco APRN) Venous ulcer (Acute) Heart failure (Acute) New onset of congestive heart failure (Acute) Fluid overload (Acute) Cough (Acute) B-cell lymphoma (Acute) Abnormal finding on imaging (Acute) Stage 5 chronic kidney disease (Acute) Arthritis (Acute) Acute on chronic renal failure (Acute) Hyperkalemia (Acute) Acute renal failure (Acute) Shingles (Acute) Venous ulcer of left leg (Acute) Lung mass (Acute) Heart murmur (Chronic) Acute kidney injury superimposed on chronic kidney disease (Acute) Dehydration (Acute) Hypomagnesemia (Acute) Syncope and collapse (Acute) Spinal stenosis (Acute) GERD (gastroesophageal reflux disease) (Chronic) Weight loss, abnormal (Acute) Atherosclerosis of artery of both lower extremities (Acute) Venous stasis dermatitis of both lower extremities (Acute) Aneurysm of right iliac artery (Acute) Non-healing ulcer of foot with fat layer exposed (Acute) Chronic ulcer of left lower extremity with fat layer exposed (Acute) Venous stasis ulcer of ankle (Acute) Smoker unmotivated to quit (Chronic) Myocardial infarction (Acute 10/08/84) Status post carotid endarterectomy (Acute) Status post phlebectomy (Acute) Compression fracture of lumbar spine, non-traumatic (Acute) Abdominal aortic aneurysm (AAA) without rupture (Acute 05/27/16) 3.5cm 05/24 CT scan Abnormal thyroid stimulating hormone (TSH) level (Acute 06/02/17) Chronic suppressed TSH. Normal T3, T4. Anemia (Acute 06/02/17) chronic normocystic. No etiology found. Bundle branch block, unspecified (Acute) left Carotid artery stenosis (Acute) Cataract (Acute) O.D. 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 likely due to DM Psoriasis (Acute) Right rotator cuff tear (Acute 02/20/15) Smell or taste problem (Acute) Syncope and collapse (Acute) ? 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 Sister No problems noted. Social History Smoking/Tobacco Use Status: Current every day Tobacco Type: pipe Smoking risk assessment performed?: Yes Alcohol Intake: current Alcohol Intake frequency: 0-2 drinks per day Substance use type: does not use Housing: house Current gender identity: male Do you feel safe at home: Yes Do you feel safe in your relationship?: Yes
[2025-09-18 19:55] VITALS: BP 126/59; PULSE 126; RESP 19; TEMP 36.4; O2SAT 92
[2025-09-19] VITALS (7 sets, daily range): BP systolic 128–156; BP diastolic 68–86; PULSE 57–79; RESP 16–22; TEMP 36.3–36.7; O2SAT 91–96
[2025-09-19 06:51] LABS: Abs Immature Grans 0.02 10^3/uL (0.0-0.06); HCT 29.7 % (40.0-50.0); HGB 8.9 g/dL (13.5-17.5); Immature Grans % 0.4 %; MCH 26.6 pg (27.0-33.0); MCHC 30.0 % (32.0-36.0); MCV 89 fL (80-95); MPV 11.5 fL (8.0-11.0); Platelet Count 143 10^3/uL (130-400); RBC 3.35 10^6/uL (4.36-5.78); RDW 16.3 % (11.8-14.1); RDW-SD 53.1 fL; WBC 5.52 10^3/uL (4.4-10.8)
[2025-09-19 07:23] LABS: Anion Gap 12.1 mmol/L (3-11); BUN 61 mg/dL (7-18); CO2 27.9 mmol/L (21.0-32.0); Calcium 8.6 mg/dL (8.5-10.1); Chloride 100 mmol/L (98-107); Glucose 90 mg/dL (74-106); Magnesium 1.8 mg/dL (1.8-2.4); Potassium 4.0 mmol/L (3.5-5.1); Sodium 140 mmol/L (136-145)
[2025-09-19] MEDS: Enoxaparin 30 MG/0.3 ML SYR SC (08:44)
[2025-09-19] MEDS: Aspirin 81 MG CHEW PO (08:45)
[2025-09-19] MEDS: amLODIPine 2.5 MG TAB PO (08:45)
[2025-09-19] MEDS: Furosemide 40 MG/4 ML VIAL IVP ×2 (08:45→16:04)
[2025-09-19] MEDS: Metoprolol 50 MG TAB 25 MG PO (08:45)
[2025-09-19] MEDS: Pravastatin 20 MG TAB PO (08:45)
[2025-09-19] MEDS: Albuterol/Ipratropium 3 ML UPD VIAL UPD (09:11)
--- NOTE | 2025-09-19 09:48 | CMPROGNOTE_ITS ---
Date of service: 09/19/25 Time of Service: 09:48 Care Management Progress Note Progress Note Text Progress Note Text: Sameer was sitting up in a chair when CM met with him. He was polite but seemed a bit irritable. Sameer was evaluated by PT this morning and they recommended SNF for short term rehab vs HH PT. CM discussed both options with Sameer and he clearly stated that he is not interested in either rehab or home health. He informed CM that he does not need PT and that he has too many things to do such as getting firewood ready for the winter and some barn work. Sameer reported that he has an appointment tomorrow to get some blood work done and, depending on r esults, [facility]. CM contacted the [facility] to determine what, if any, alternative arrangements needed to be made. CM learned that Sameer does get regular CBCs and Type and Screens done and receives Vitamin B-12 and Aranesp injections. His next appointment is not until 10/04/25 however. CM conveyed this information to Sameer. Sameer also informed CM that he is going for surgery later today. There is no procedure planned for today but Sameer is scheduled for a thoracentesis tomorrow with possible chest tube placement. Discharge Potential Discharge Needs: PCP F/U Appt Anticipated Barriers to Discharge: None Identified Patient/Family Education Needs: Review discharge instructions, discuss Ask Me Three Transportation: Private vehicle Plan: Anticipate Sameer will return home once medically cleared. PT has recommended SNF vs HH PT but, at this time, Sameer is refusing to consider either one. He will transport via private vehicle with family and will follow up with his PCP and discharge plan of care. CM will follow and continue to assess for discharge needs. Social Determinants of Health Screening Social Determinants of health last assessed in clinic: 09/19/25 Will the Patient Participate in the Screening?: Yes Do you worry about having a steady place to live?: no Problems where you live: no known problems In the past 12 months, have you had to go without electric, gas, oil or water in your home?: no 1. Within the past 12 months, we worried whether our food would run out before we got money to buy more.: Never true 2. Within the past 12 months, the food we bought just didn't last and we didn't have money to get more.: Never true Has lack of transportation kept you from medical appointments or from doing things needed for daily living?: no Has anyone in your life made you feel unsafe or unsupported?: no How hard is it for you to pay for the very basics like food, housing, medical care, and heating? Would you say it is:: Not hard at all Do you want help finding or keeping work or a job?: I do not need or want help If for any reason you need help with day-to-day activities such as bathing, preparing meals, shopping, managing finances, etc., do you get the help you need?: I don’t need any help How often do you feel lonely or isolated from those around you?: Sometimes Do you speak a language other than [place]ican at home?: Yes Health Related Social Needs Health related social needs: feeling lonely/isolated (Z60.8) and education (Z55.6) Health related social needs details: requesting no assistance
--- NOTE | 2025-09-19 10:27 | PDOC.HHF2F ---
Date of service: 09/20/25 Time of Service: 14:40 Home Health Referral Home Health Orders Clinical synopsis of why skilled professionals are needed: This is an 84 year male with a past medical history of B-cell lymphoma, lung mass, 42 pack- year remote smoking history but currently a pipe smoker, liver mass, infrarenal fusiform AAA at 3.5 cm, chronic kidney disease stage 5 against dialysis, who presented to the ED for evaluation of increased shortness of breath worsening at night and described as as claustrophobia, feeling like he is panicking w/o c/o any chest pain, fever chills or recent illness. His work up in the ED was concerning for fluid overload and IV Lasix 80 mg X1 given increase urine production. The patient was admitted to the medical surgical floor by the hospitalist service for further management and evaluation. Lasix 40 mg IV BID while inpatient will be transitioned to oral therapy at discharged. 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 The patient will benefit from a cardiology referral outpatient and this is deferred to his PCP for GDMT for HFmrEF. Metoprolol tartrate transitioned to metoprolol succinate and jardiance added to regimen Initially improving but developed increased oxygen requirement. Chest CT showed large right pleural effusion with right lower lobe collapse and left patchy infiltrate to the lower lobes. Doxycycline and prednisone burst initiated. Pulmonary consult with Dr. Amado initiated with recommendations for right thoracentesis and addition of ceftriaxone without steroids. The patient aggreed to thoracentesis this morning resulting in 1200ml of pleural fluid sent for analysis. The patient clinical improved s/p procedure and ambulated w/o oxygen requirement. The patient to follow-up with pulmonology outpatient which will be arranged by Dr. Amado as per discussion. The patient is hemodynamically stable, afebrile and The patient will be discharged home on oral lasix, jardiance, oral antibiotics, as needed breathing treatments with Combivent inhaler. The patient would have benefited from home health physical therapy but he refused and accepted home health nursing to assist him with new medicine regimen. Follow-up with PCP within 7 days of discharge. Discussed with Dr. Diamond Registered Nurse: Check all that apply Instruct on new or changed medication(s)/assess compliance: Ordered Assess for exacerbation of medical condition, instruct patient/caregivers on signs and symptoms to report for early detection: Ordered Encounter Date and Reason: I certify that a FTF encounter for this patient was performed on September 19, 2025 and that such encounter was related to the primary reason the patient requires home health services. The encounter was conducted in the following manner: By me as the certifying physician, PHYSICAL THERAPIST TECHNICIAN, PA or By an inpatient physician, PHYSICAL THERAPIST TECHNICIAN or PA during an inpatient stay who communicated findings to me, Certification And Authentication I certify that I composed the above information based on my clinical judgment relating to this patient's medical condition and, if applicable, clinical findings communicated to me by the NPP or inpatient physician who performed the FTF encounter. Name of Provider that will be monitoring home health services: Marino Nieto
[2025-09-19] MEDS: Empaglifozin 10 MG TAB PO (10:54)
--- NOTE | 2025-09-19 12:08 | IN_ITS ---
PT Notes Visit Reasons: Heart Failure Physical Therapy Inpatient Initial Evaluation Date: 09/19/2025 Referring Doctor: Madison Orozco NP PT Orders: PT CONSULT: Eval and treat. Precautions: Fall. Standard. Activity as tolerated. Severe hard of hearing Patient Profile/Admitting Diagnosis: Pt is a 84-year-old male who arrived in the ED with heart failure, stage 5 chronic kidney disease, SOB. Pt work up showed fluid overload, and was treated with IV diuretics. Chest CT: IMPRESSION: 1. Large right pleural effusion with right lower lobe collapse. There is also a large infiltrate extending from the right heart border to the lateral pleural surface. 2. Patchy infiltrate in the left lower lobe. There is no left-sided pleural effusion. 3. Cardiomegaly. Heavy coronary artery calcification. Dilated ascending thoracic aorta (4.2 cm diameter). Hyperdense material again noted in Morison's pouch between the liver and right kidney, as evident on prior CT scan of 04/21/2025. This may be related to extravasated oral contrast or circumferential calcification. Informed Consent/Education: Patient was instructed in purpose of PT consult and plan of care. Agreeable to proceed with established PT POC to achieve personal goals. PMHX: Heart failure (Acute) New onset of congestive heart failure (Acute) Fluid overload (Acute) Cough (Acute) B-cell lymphoma (Acute) Abnormal finding on imaging (Acute) Stage 5 chronic kidney disease (Acute) Arthritis (Acute) Acute on chronic renal failure (Acute) Hyperkalemia (Acute) Acute renal failure (Acute) Shingles (Acute) Venous ulcer of left leg (Acute) Lung mass (Acute) Heart murmur (Chronic) Acute kidney injury superimposed on chronic kidney disease (Acute) Dehydration (Acute) Hypomagnesemia (Acute) Syncope and collapse (Acute) Spinal stenosis (Acute) GERD (gastroesophageal reflux disease) (Chronic) Weight loss, abnormal (Acute) Atherosclerosis of artery of both lower extremities (Acute) Venous stasis dermatitis of both lower extremities (Acute) Aneurysm of right iliac artery (Acute) Non-healing ulcer of foot with fat layer exposed (Acute) Chronic ulcer of left lower extremity with fat layer exposed (Acute) Venous stasis ulcer of ankle (Acute) Smoker unmotivated to quit (Chronic) Myocardial infarction (Acute 10/08/84) Status post carotid endarterectomy (Acute) Status post phlebectomy (Acute) Compression fracture of lumbar spine, non-traumatic (Acute) Abdominal aortic aneurysm (AAA) without rupture (Acute 05/27/16) 3.5cm 05/24 CT scan Abnormal thyroid stimulating hormone (TSH) level (Acute 06/02/17) Chronic suppressed TSH. Normal T3, T4. Anemia (Acute 06/02/17) chronic normocystic. No etiology found. Bundle branch block, unspecified (Acute) left Carotid artery stenosis (Acute) Cataract (Acute) O.D. 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 likely due to DM Psoriasis (Acute) Right rotator cuff tear (Acute 02/20/15) Smell or taste problem (Acute) Syncope and collapse (Acute) ? secondary to medications Tobacco use disorder (Acute) pipe Varicose veins of lower extremity with ulcer (Acute) Surgical History PROCEDURES ENDARTERECTOMY NOS left carotid LEG VEIN EXCISION, 2008 left leg; chronic venous ulcers BIOPSY 06/01/18 [facility]; [facility] Social History/Home Situation: Pt lives in a single-family home with his . Pt oldest son will visit from time to time. Pt has 4 ARIELA with one rail. Pt has everything he needs on first floor Equipment Owned/DME: FWW, single point cane Subjective: Pt reported needing to use the bathroom prior to PT session. Pt reported it is difficult to get up from this recliner. Objective: General Observation: Pt presented sitting in recliner when PT and DPTS arrived.Pt with oxygen at 1.5L/min via [place] Mental Status: Alert and oriented as to person, place, time, and purpose. Able to pay attention. Pt is able to focus, but during ambulation will look around his surroundings. Pt responds appropriately, but needs DPTS to speak louder as pt had a sever hard of hearing. Pain: 8/10 reported in ulcer on anterior aspect of left foot. Vital Signs: Pre ambulation: SPO2 on 1.5 L= 96% Post ambulation: First take: SPO2 on 1 L= 88%, Second Take (2minutes later) SPO2 on 1 L= 92% with excessive coughing ROM: Right Upper Extremity: Shoulder Flexion limited 120 degrees. Shoulder abduction limited 120 degrees. Elbow flexion WFL. Wrist flexion WFL. Functional opening and closing of hand WFL except difficulty extending pinky and ring finger. Left Upper Extremity: Shoulder Flexion limited 120 degrees. Shoulder abduction limited 120 degrees. Elbow flexion WFL. Wrist flexion WFL. Functional opening and closing of hand WFL except difficulty extending pinky and ring finger. Right Lower Extremity: Hip flexion WFL. Hip abduction WFL. Knee flexion WFL. Ankle dorsiflexion WFL. Ankle plantarflexion WFL. Left Lower Extremity: Hip flexion WFL. Hip abduction WFL. Knee flexion WFL. Ankle dorsiflexion WFL. Ankle plantarflexion WFL. Strength: Right Upper Extremity: Grossly 4/5. Left Upper Extremity: Grossly 4/5. Right Lower Extremity: Grossly Hip 3-/5 Knee 3/5.ankle 3/5 Left Lower Extremity: Grossly hip 3-/5 knee 3/5. ankle 3/5 Bed Mobility/Transfers: Bed mobility: Not tested Sit to stand: First recliner (which sat low): Mod A of 2 Second recliner (more elevated than first recliner) Min A of 1 with verbal and tactile cues for safe/correct technique Stand to sit with supervision Bed to toilet with single point cane with Min A of 2 10 feet and verbal and tactile cues for safe/correct technique Stairs: not performed Ambulation/Gait: Instructed patient with level surface ambulation of 200 feet total with sit rest with FWW requiring supervision assist. Yanira reciprocal and normal. Step height normal. Step length normal. Balance: Static Sitting: good Dynamic Sitting: fair Static Standing: fair Dynamic Standing: poor Special Tests: Mobility Limitations Standardized Measure [facility] AM-PAC 6 clicks Basic Mobility Inpatient Short Form: Raw Score: 18 CMS Score: 46.58% deficit Assessment: Pt ambulated from recliner to toilet with Min A of 2 with single point cane. PT changed the cane for a FWW, and replaced recliner with another recliner with an more elevated seat. Pt was able to ambulate total of 200 feet w/FWW CGA. Pt rested at about 120 feet, and vitals were taken again. Pt presented with dyspnea and SPO2 of 88% on 1 L of O2. After verbal cueing and demonstration by PT for the pt to inhale through his nose and exhale through his mouth, his SPO2 increased to 92%. Pt lives at home with his . However, because of the decrease in global strength, increase in dyspnea with activity tolerance while on 1L of O2, and the need for verbal cueing with proper breathing techniques. Pt would benefit from skilled physical therapy to address these concerns. Patient presents with clinical signs and symptoms consistent with current/admitting diagnoses that have resulted to mobility limitations, gait instability, generalized weakness, and overall ADL decline as demonstrated by the following impairment level findings: 1. Decreased strength to Quads, glutes and back extensors 2. Impaired sitting/standing balance 3. Impaired activity tolerance 4. Limitation of joint range of motion in Abdominal extension, shoulders flex/abduction 5. Moderate shortness of breath on exertion 6. Excessive coughing with phlegm Impairments are contributing to the following functional limitations: 1. Decline in bed mobility skills 2. Decline in transfer skills 3. Difficulty with ambulation without assistive device and physical assistance 4. Increased completion time for mobility ADL performance 5. Increased risk for falls 6. Difficulty with managing steps alone safely Patient is assessed as a Moderate complexity based on the following: History: 84-year-old Male with past medical history as indicated above Examination: Demonstrable impairment in strength, balance, and mobility level with underlying impairments and functional limitations as exhibited above as well as deficit score of 46.58% utilizing the [facility] Mobility Inpatient Short Form Presentation: evolving Decision Making: Moderate complexity Goals: Goals X1 week 1. Supine-Sit independent 2. Sit-Supine independent 3. Sit-Stand independent 4. Stand-Sit independent with FWW 5. Bed-Chair independent with FWW 6. Chair-Bed independent with FWW 7. Independent gait on level surface with use of FWW for at least 300 feet without report of dyspnea 8. Independent stair negotiation while holding onto one rail for at least 5 steps without report of pain nor dyspnea 9. Independent with home exercise program 10. Good static and dynamic standing balance/tolerance Plan of Care/Treatment Plan: 1-2x/day, 7 days/week x 1 week. Plan of care has been reviewed with the JUNIOR RECRUITER providing the service under Physical Therapy direction. Initiate Physical Therapy intervention for pain management as needed, strengthening, bed mobility, transfers, gait, stairs, balance training, and use of assistive device. DISCHARGE RECOMMENDATIONS: Home with HHPT VS SNF for continued rehabilitation Treatment: 17973: functional mobility with FWW 80 feet with CGA including turns with w/c follow for oxygen tank management. Pt perform toilet transfers with mod A of 1sit to stand with grab bar, Pt able to perform own toilet hygiene and brief management with wide VIOLETTA. TREATMENT CODE/TIME: 37749, [id number] Thank you for the opportunity to participate in the care of this patient. Written by: Darryl Ramirez DPTS Supervised by: Iris Rai, PT [facility] [place], [place]
[2025-09-19] MEDS: DOXYCYCLINE 100 MG in Normal Saline 100 ML IVPB (12:22)
--- NOTE | 2025-09-19 12:27 | DI.CT_ITS ---
Exam(s) CT CHEST WO EXAM: CT CHEST WO CLINICAL HISTORY: hypoxia. TECHNIQUE: Multi planar reconstructions were performed. CONTRAST MATERIAL: None COMPARISON: CR,XR XR CHEST 2V PA LATERAL from 06/06/[address] ABDOMEN PELVIS WO from 04/21/2025 CR XR PORTABLE CHEST AP from 09/17/2025 FINDINGS: CHEST: LUNGS: There is a large right pleural effusion with associated collapse of the right lower lobe atelectasis in the right middle lobe. There is also prominent area of infiltrate in the right middle lobe exhibiting air bronchograms extending from the right pericardium to the lateral right pleura. Also infiltrate and chronic appearing interstitial pattern throughout peripheral aspect of both lung hicks. There is patchy infiltrate in the left lower lobe. There is no pleural effusion on the left side. There are no focal findings in the trachea and mainstem bronchi. MEDIASTINUM: No obvious hilar adenopathy realizing the limitations of a noninfused study. There is no adenopathy in the anterior mediastinal fat. There is subcarinal adenopathy evident. Visualized thyroid unremarkable. CARDIAC: Mild cardiomegaly. Coronary artery calcification.Diameter of the ascending thoracic aorta is enlarged measuring 4.2 cm. VISUALIZED UPPER ABDOMEN:There is ascites. Hyperdense material is again noted in Morison's pouch between the liver and right kidney, as was evident on prior CT scan of 04/21/2025. OSSEOUS: No acute fractures. No significant osseous lesions evident.. IMPRESSION: 1. Large right pleural effusion with right lower lobe collapse. There is also a large infiltrate extending from the right heart border to the lateral pleural surface. 2. Patchy infiltrate in the left lower lobe. There is no left-sided pleural effusion. 3. Cardiomegaly. Heavy coronary artery calcification. Dilated ascending thoracic aorta (4.2 cm diameter). Hyperdense material again noted in Morison's pouch between the liver and right kidney, as evident on prior CT scan of 04/21/2025. This may be related to extravasated oral contrast or circumferential calcification. RADIATION DOSE DELIVERED: 439.51mGy.cm Total DLP DATA REPOSITORY: All CT scans at this facility are submitted to the National Radiology Data Registry (NRDR) Dose Index Registry (DIR) with the [employer] (ACR). RADIATION OPTIMIZATION: All CT scans at this facility use at least one of these dose optimization techniques: automated exposure control; mA and/or kV adjustment per patient size (includes targeted exams where dose is matched to clinical indication); or iterative reconstruction.
--- NOTE | 2025-09-19 13:10 | W.PM.PROGNOT ---
Date of Service Date of service: 09/19/25 Time of Service: 13:10 Assessment and Plan Assessment and plan (1) Heart failure with mildly reduced ejection fraction (HFmrEF, 41-49%): Status: Acute Assessment and plan: As below (2) Heart failure: Status: Acute Assessment and plan: Ongoing Lasix 40 mg IVP BID then transition to oral prior too discharge Monitor I&O , trend lytes Daily weights 09/18/25: Echocardiogram completed LVEF 45-50%, mild global hypokinesis; IVC collapsing < 50% on inspiration Ongoing Physical therapy: recommending SNF vs HH PT Wean Oxygen for sat 92-94% until seen by Dr. Amado (3) Hypoxic respiratory failure: Status: Acute Assessment and plan: In the setting of Hx of lung mass, smoking hx of cigarets - ongoing pipe smoking , and point 1 Pulmonology consult No Dx of COPD - but has increased sputum , cough and change in color Doxycycline and prednisone burst XR mentioned opacities and recommended Chest CT ordered Consider ceftriaxone if needed (4) Stage 5 chronic kidney disease: Status: Acute Assessment and plan: Stable and Cr at baseline Avoid nephrotoxic drugs Renal dosing as needed ongoing to monitor electrolytes and kidney function closely and I&O Palliative care consult pending (5) Essential hypertension: Status: Chronic Assessment and plan: Continue routine monitoring,on home medicine regimen and PRN adjustment of meds BP remains stable (6) Abdominal aortic aneurysm (AAA) without rupture: Status: Acute Assessment and plan: Ongoing stable infrarenal fusiform AAA up to 3.5 cm outpatient monitoring - control BP with home meds and adjust PRN (7) Anemia: Status: Acute Assessment and plan: H&H- stable - on dabepoetin roxana injection outpatient (8) Venous ulcer: Status: Acute Assessment and plan: LLE venous ulcer - managed outpatient at wound clinic Wound consult pending (9) Hyperlipidemia: Status: Acute Assessment and plan: on home medicine regimen (10) On deep vein thrombosis (DVT) prophylaxis: Status: Resolved Assessment and plan: continue Renal dosing of LMWH discussed with Dr Diamond Subjective Subjective Patient reports: tolerating liquids well, tolerating a regular diet, voiding w/o difficulty, bowel movement, blood in stool, shortness of breath and other (productive cough with increased yellow -sputum production ); denies feels better, diarrhea, nausea, vomiting or fever Exam Narrative Exam Narrative: Well-appearing male of stated age in no acute distress , eyes nonicteric noninjected oral mucosas moist neck, neurologic: awake alert oriented no focal deficits respirations even and unlabored at rest - labored with movement , heart is regular- rate and rhythm, abdomen soft benign extremities without edema moves all extremities voiding without difficulty psychiatric appropriate mood and affect Objective Last Vital Signs Temp 36.4 C L 09/19/25 07:27 Pulse 57 L 09/19/25 09:11 Resp 16 09/19/25 07:27 BP 131/72 09/19/25 07:27 Pulse Ox 91 L 09/19/25 09:11 Laboratory Results - last 24 hr 09/18/25 09/19/25 05:58 06:12 WBC 5.52 RBC 3.35 L Hgb 8.9 L Hct 29.7 L MCV 89 MCH 26.6 L MCHC 30.0 L RDW 16.3 H Plt Count 143 MPV 11.5 H Immature Gran % 0.4 Neutrophils % 84.0 Lymphocytes % 5.6 Monocytes % 7.4 Eosinophils % 2.2 Basophils % 0.4 Nucleated RBC % 0.0 Absolute Neutrophils 4.64 Absolute Lymphocytes 0.31 L Absolute Monocytes 0.41 Absolute Eosinophils 0.12 Absolute Basophils 0.02 Sodium 140 Potassium 4.0 Chloride 100 Carbon Dioxide 27.9 Anion Gap 12.1 H BUN 61 H Creatinine 4.4 H* Est GFR (CKD-EPI 2020) 12.54 Glucose 90 Calcium 8.6 Magnesium 1.9 1.8 Time Spent with Patient Time Spent with Patient: >50 minutes Time was spent: preparing to see the patient(eg.review tests), obtaining and/or reviewing separately otained hiistory, ordering medications,tests, procedures, referring, communicating with other health customer care professional, indepentently interpreting results, counseling the patient, care coordination and other
[2025-09-19] MEDS: predniSONE 20 MG TAB 40 MG PO (13:28)
--- NOTE | 2025-09-19 14:28 | PUCON_ITS ---
General Date Of Service Date of service: 09/19/25 Time of Service: 14:30 Requesting physician: Madison Orozco Reason for Consult: Pleural effusion, dyspnea Recommendations: Assessment: 1. Right pleural effusion - etiology unclear. Ddx: cardiogenic vs malignant. Less likely parapneumonic 2. Acute hypoxemic respiratory failure - on 1 L O2 - suspect due to pulmonary edema, atelectasis, pleural effusion. Wells score is low probablity for acute PE 3. Pulmonary infiltrates - atelectasis vs pneumonia vs inflammatory. Less likely malignancy. Procalcitonin and WBC were normal, arguing against an active infectious process 4. 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 CKD- Cr at baseline Recommendations: - recommended thoracentesis to better assess the cause of his pleural effusion. He refused - agree with continued diuresis as he is still hypervolemic and Cr has been stable - will visit in the AM and do a POCUS exam to re-assess the right pleural effusion - at this time, cannot rule out pneumonia. Given his infiltrates, continuation of doxycycline and adding rocephin is recommended - do not believe he is having a COPD exacerbation, so can d/c systemic steroids Discussed with Madison Orozco Assessment and Plan Assessment and plan (1) Hypoxic respiratory failure: Status: Acute (2) Pleural effusion, right: Status: Acute (3) B-cell lymphoma: Status: Acute (4) Pulmonary infiltrates: Status: Acute History of Present Illness Narrative: Mr. Kauffman is an 84 yo with a history of CKD, B-cell lymphoproliferative disorder, and a right pleural effusion, who was admitted on 09/17 for worsening dyspnea and hypoxia. CT chest imaging showed a significant right pleural effusion and bilateral patchy infiltrates. WBC was normal. Procal was not elevated. Pt reports gradually worsening dyspnea over several weeks. He has a cough with yellowish sputum production. Denied hemotpysis. Echo showed moderate and EF of 45- 50%. He is currently on 1 L O2. 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, saw dusts ROS: 10 pt ROS negative except as in HPI PFSH All Active Problems (Updated 09/19/25 @ 15:03 by Leodan Amado MD) Pulmonary infiltrates (Acute) Pleural effusion, right (Acute) Hypoxic respiratory failure (Acute) Heart failure with mildly reduced ejection fraction (HFmrEF, 41-49%) (Acute) Venous ulcer (Acute) Heart failure (Acute) New onset of congestive heart failure (Acute) Fluid overload (Acute) Cough (Acute) B-cell lymphoma (Acute) Abnormal finding on imaging (Acute) Stage 5 chronic kidney disease (Acute) Arthritis (Acute) Acute on chronic renal failure (Acute) Hyperkalemia (Acute) Acute renal failure (Acute) Shingles (Acute) Venous ulcer of left leg (Acute) Lung mass (Acute) Heart murmur (Chronic) Acute kidney injury superimposed on chronic kidney disease (Acute) Dehydration (Acute) Hypomagnesemia (Acute) Syncope and collapse (Acute) Spinal stenosis (Acute) GERD (gastroesophageal reflux disease) (Chronic) Weight loss, abnormal (Acute) Atherosclerosis of artery of both lower extremities (Acute) Venous stasis dermatitis of both lower extremities (Acute) Aneurysm of right iliac artery (Acute) Non-healing ulcer of foot with fat layer exposed (Acute) Chronic ulcer of left lower extremity with fat layer exposed (Acute) Venous stasis ulcer of ankle (Acute) Smoker unmotivated to quit (Chronic) Myocardial infarction (Acute 10/08/84) Status post carotid endarterectomy (Acute) Status post phlebectomy (Acute) Compression fracture of lumbar spine, non-traumatic (Acute) Abdominal aortic aneurysm (AAA) without rupture (Acute 05/27/16) 3.5cm 05/24 CT scan Abnormal thyroid stimulating hormone (TSH) level (Acute 06/02/17) Chronic suppressed TSH. Normal T3, T4. Anemia (Acute 06/02/17) chronic normocystic. No etiology found. Bundle branch block, unspecified (Acute) left Carotid artery stenosis (Acute) Cataract (Acute) O.D. 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 likely due to DM Psoriasis (Acute) Right rotator cuff tear (Acute 02/20/15) Smell or taste problem (Acute) Syncope and collapse (Acute) ? secondary to medications Tobacco use disorder (Acute) pipe Varicose veins of lower extremity with ulcer (Acute) Surgical History PROCEDURES ENDARTERECTOMY NOS left carotid LEG VEIN EXCISION, 2009 left leg; chronic venous ulcers [place] [facility] [place] Family History Mother Personal history of malignant neoplasm ovarian Heart disease Hyperlipidemia Father Heart disease Sister No problems noted. Sister No problems noted. Social History Smoking/Tobacco Use Status: Current every day Tobacco Type: pipe Smoking risk assessment performed?: Yes Alcohol Intake: current Alcohol Intake frequency: 0-2 drinks per day Substance use type: does not use Housing: house Current gender identity: male Do you feel safe at home: Yes Do you feel safe in your relationship?: Yes Visit Medication and Allergies Active Medications Generic Name Dose Route Start Last Admin Trade Name Freq PRN Reason Stop Dose Admin Acetaminophen 650 mg 09/17/25 16:46 Acetaminophen 325 Mg Tab PO Q4H PRN PRN Albuterol Sulfate 2.5 mg 09/18/25 16:06 Albuterol 2.5 Mg/3 Ml Inh Soln Vial UPD Q4H PRN PRN Albuterol/Ipratropium 3 ml 09/19/25 08:50 09/19/25 09:11 Albuterol/Ipratropium 3 Ml Upd Vial UPD 3 ml Q6H PRN PRN Administration Amlodipine Besylate 2.5 mg 09/18/25 08:30 09/19/25 08:45 Amlodipine 2.5 Mg Tab PO 2.5 mg DAILY KAMALA Administration Aspirin 81 mg 09/18/25 08:30 09/19/25 08:45 Aspirin 81 Mg Chew PO 81 mg DAILY KAMALA Administration Empagliflozin 10 mg 09/20/25 08:30 Empaglifozin 10 Mg Tab PO QAM KAMALA Enoxaparin Sodium 30 mg 09/19/25 08:30 09/19/25 08:44 Enoxaparin 30 Mg/0.3 Ml Syr SC 30 mg DAILY KAMALA Administration Furosemide 40 mg 09/18/25 10:30 09/19/25 08:45 Furosemide 40 Mg/4 Ml Vial IVP 40 mg BID@0800,1600 KAMALA Administration Doxycycline Hyclate 100 mg/ 100 mls @ 100 mls/hr 09/19/25 12:00 09/19/25 13:23 Sodium Chloride IVPB Infused Q12H KAMALA Infusion IV Miscellaneous Supplies 1 each 09/19/25 09:15 Iv Access IV DIRECTED [facility] Metoprolol Succinate 50 mg 09/19/25 20:00 Metoprolol Cr 50 Mg Tabcr PO HS KAMALA Polyethylene Glycol 17 gm 09/17/25 16:46 Polyethylene Glycol 3350 17 Gm Packet PO DAILY PRN PRN Constipation Pravastatin Sodium 20 mg 09/18/25 08:30 09/19/25 08:45 Pravastatin 20 Mg Tab PO 20 mg DAILY KAMALA Administration Prednisone 40 mg 09/19/25 13:10 09/19/25 13:28 Prednisone 20 Mg Tab PO 40 mg DAILY KAMALA Administration Sodium Chloride 0 ml 09/19/25 08:46 Normal Saline Flush 10 Ml Syr IVP PRN PRN Allergies cephalexin (From Keflex) Adverse Reaction (Intermediate, Verified 09/17/25 12:10) Pt noted severe abdominal discomfort It was unreal Exam Narrative Exam Narrative: General: alert, no acute distress Head: normocephalic ENT: no stridor, trachea midline CV: normal rate, regular rhythm Respiratory: no wheezing, no crackles, no rhonchi, no prolonged expiration GI: abd soft, non-tender, non-distended Skin: no rashes Extremities: +2 edema, no digital clubbing Psych: normal affect Results Last Vital Signs Temp 36.4 C L 09/19/25 07:27 Pulse 57 L 09/19/25 09:11 Resp 16 09/19/25 07:27 BP 131/72 09/19/25 07:27 Pulse Ox 91 L 09/19/25 09:11 Labs 09/19/25 06:12 09/19/25 06:12 Labs: Laboratory Results - last 24 hr 09/19/25 06:12 WBC 5.52 RBC 3.35 L Hgb 8.9 L Hct 29.7 L MCV 89 MCH 26.6 L MCHC 30.0 L RDW 16.3 H Plt Count 143 MPV 11.5 H Immature Gran % 0.4 Neutrophils % 84.0 Lymphocytes % 5.6 Monocytes % 7.4 Eosinophils % 2.2 Basophils % 0.4 Nucleated RBC % 0.0 Absolute Neutrophils 4.64 Absolute Lymphocytes 0.31 L Absolute Monocytes 0.41 Absolute Eosinophils 0.12 Absolute Basophils 0.02 Sodium 140 Potassium 4.0 Chloride 100 Carbon Dioxide 27.9 Anion Gap 12.1 H BUN 61 H Creatinine 4.4 H* Est GFR (CKD-EPI 2020) 12.54 Glucose 90 Calcium 8.[address] scan - chest: report reviewed and image reviewed
--- NOTE | 2025-09-19 15:25 | CHAPLAIN ---
Sameer was enjoying visiting with a friend when I stopped in. He joked about not being ready to meet God yet when I explained who I was. I explained my role and offered support.
[2025-09-19] MEDS: cefTRIAXone 2 GM/50 ML BAG IVPB (16:04)
--- NOTE | 2025-09-19 18:10 | NUR.NOTE ---
Nursing Note: patient educated regarding need for thoracentis for collapsed lung and plueral effusion, to help with pain and sob, and to improve lung function. RN explained it to patient in a way patient was able to verbalize it in his own words. patient then verbalzied he understood the need for it and agreed to have it done tomorrow. TEST RACK OPERATOR notified. Patient also agreed to have palacios placed because he was tired of having to pee every 20 minutes due to the IVP lasix. Palacios was placed by me. WILLIAM RN
[2025-09-19] MEDS: Metoprolol CR 50 MG TABCR PO (19:50)
--- NOTE | 2025-09-19 22:00 | DI.RAD_ITS ---
Exam(s) XR PORTABLE CHEST AP EXAM: XR PORTABLE CHEST AP CLINICAL HISTORY: Progressive decreased breath sounds over right TECHNIQUE: 2D digital imaging was performed. COMPARISON: CR XR PORTABLE CHEST AP from 09/17/[address] CHEST WO from 09/19/2025 FINDINGS: LUNGS: Very low lung volumes. Underlying interstitial disease. Bilateral pleural effusions, moderate on the right and small on the left. Findings are similar to prior exam. Increased basilar densities could represent a combination of atelectasis and/or infiltrates. HEART: Normal size. Pulmonary vascular prominence. AORTA: Normal diameter. BONES: Unremarkable for age. Soft tissues: Unremarkable. IMPRESSION: Stable appearance of moderate right effusion and bibasilar infiltrates versus atelectasis. The preliminary [facility] report was reviewed. DATA REPOSITORY: RADIATION DOSE DELIVERED:
--- NOTE | 2025-09-19 22:41 | DI.[facility]_ITS ---
PROCEDURE INFORMATION: Exam: XR Chest Exam date and time: 09/19/2025 10:21 PM Age: 84 years old Clinical indication: Shortness of breath; Additional info: Progressive decreased breath sounds over right TECHNIQUE: Imaging protocol: Radiologic exam of the chest. Views: 1 view. COMPARISON: CT CHEST WO 09/19/2025 12:07 FINDINGS: Lungs: Right greater than left lower lobe atelectatic and/or consolidative changes acute pneumonia is not excluded. There is a right pleural effusion. There is pulmonary venous congestion. There is diffuse interstitial edema. Underlying inflammatory or infectious process not excluded. Pleural spaces: There is a large right pleural effusion. No evidence of pneumothorax. Heart/Mediastinum: The heart is enlarged. There is prominence of the mediastinum. Bones/joints: Moderately severe degenerative changes thoracic and thoracolumbar spine. The skeletal structures and soft tissues show no evidence of fracture or other acute processes. Soft tissues: The soft tissues of the extrathoracic region are unremarkable. IMPRESSION: 1. Probable congestive heart failure. Underlying inflammatory or infectious process not excluded. 2. Probable right greater than left lower lobe pneumonia 3. Large right pleural effusion. Dictated and Authenticated by: Rodrigo Magallon MD. Orderin Paul Estevez MD
[2025-09-20] VITALS (8 sets, daily range): BP systolic 116–136; BP diastolic 50–69; PULSE 68–74; RESP 17–24; TEMP 36.1–36.6; O2SAT 90–97
[2025-09-20] MEDS: DOXYCYCLINE 100 MG in Normal Saline 100 ML IVPB ×2 (00:50→12:00)
[2025-09-20] MEDS: Normal Saline Flush 10 ML SYR IVP ×2 (00:50→09:24)
[2025-09-20 06:53] LABS: Abs Immature Grans 0.03 10^3/uL (0.0-0.06); HCT 29.7 % (40.0-50.0); HGB 9.1 g/dL (13.5-17.5); Immature Grans % 0.5 %; MCH 27.2 pg (27.0-33.0); MCHC 30.6 % (32.0-36.0); MCV 89 fL (80-95); MPV 11.4 fL (8.0-11.0); Platelet Count 164 10^3/uL (130-400); RBC 3.35 10^6/uL (4.36-5.78); RDW 16.4 % (11.8-14.1); RDW-SD 52.7 fL; WBC 6.17 10^3/uL (4.4-10.8)
[2025-09-20 07:11] LABS: Magnesium 1.8 mg/dL (1.6-2.6)
[2025-09-20 07:52] LABS: Anion Gap 12.9 mmol/L (3-11); BUN 65 mg/dL (9-23); CO2 26.3 mmol/L (20.0-31.0); Calcium 8.9 mg/dL (8.3-10.6); Chloride 99 mmol/L (98-107); Glucose 119 mg/dL (74-106); Potassium 4.2 mmol/L (3.5-5.1); Sodium 138 mmol/L (136-145)
--- NOTE | 2025-09-20 08:00 | DI.RAD_ITS ---
Exam(s) XR PORTABLE CHEST AP EXAM: XR PORTABLE CHEST AP CLINICAL HISTORY: post-right thoracentesis TECHNIQUE: 2D digital imaging was performed. COMPARISON: No exams were available for comparison FINDINGS: LUNGS: Patient is status post right thoracentesis. There is interval decrease in size of the previously noted right pleural effusion, now small. A persistent densities at the right lung base, infiltrate versus atelectasis. Mildly increased densities are noted at the left lung base. The lungs are not well inflated. There are underlying chronic interstitial changes. HEART: Normal size. AORTA: Normal diameter. BONES: Unremarkable for age. Soft tissues: Unremarkable. IMPRESSION: No pneumothorax status post thoracentesis. Decreased size of right pleural effusion. DATA REPOSITORY: RADIATION DOSE DELIVERED:
--- NOTE | 2025-09-20 08:00 | PAPNONF_PTH ---
PATIENT: Sameer Kauffman LOC: U#:[id number] AGE/SX: 84/M ROOM: RE09/17/[address]: Rhett Diamond : 1940 BED: A DIS: 09/20/2025 SPEC #: [id number] RECD: 09/20/25 12:51 STATUS: KERVIN REDonaldo #: [id number] SANDRA: 09/20/25 08:[address]: Rhett Diamond DEPT: [facility] Cytology RECD BY: Alicia Castano ENTERED: 09/20/25 12:52 SP TYPE: [place] DR: Leodan Nieto MD InPatient Daniel Espinal Tissues: 1 - BODY FLUID CYTO(NOT S/U/N/EM)[facility] 2 - FLOW CYTOMETRY NODE/TISSUE Procedures: BODY FLUID CYTO(NOT SPU/UR/NIP/ENDOM)[facility] FLOW CYTOMETRY LYMPHOMA PNL Comments: [id number] (TV = 8 cc, SENT FRESH) (REFRIGERATED) (FLOW CYTOMETRY [id number])
--- NOTE | 2025-09-20 08:15 | PGE_ITS ---
Assessment and Plan Assessment and plan (1) Hypoxic respiratory failure: Status: Acute (2) Pleural effusion, right: Status: Acute (3) B-cell lymphoma: Status: Acute (4) Pulmonary infiltrates: Status: Acute General Date Of Service Date of service: 09/20/25 Time of Service: 07:15 Requesting physician: Madison Orozco Reason for Consult: Pleural effusion, dyspnea Recommendations: Assessment: 1. Right pleural effusion - etiology unclear. Ddx: cardiogenic vs malignant. Less likely parapneumonic. S/P thoracentesis on 09/20 - pleural fluid analysis pending 2. Acute hypoxemic respiratory failure - on 1 L O2 - suspect due to pulmonary edema, atelectasis, pleural effusion. Wells score is low probablity for acute PE 3. Pulmonary infiltrates - atelectasis vs pneumonia vs inflammatory. Less likely malignancy. Procalcitonin and WBC were normal, arguing against an active infectious process 4. 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 CKD- Cr improved to 4.1 Recommendations: - follow up on pleural fluid analysis - continue empiric antibiotics for now. If patient is discharged today can place on PO doxycycline and PO vantin for 4 more days - will arrange for outpatient follow up to evaluate for COPD and re-assess his pleural effusions Discussed with Dr. Diamond Subjective Note Note: Mr. Kauffman is an 84 yo with a history of CKD, B-cell lymphoproliferative disorder, and a right pleural effusion, who was admitted on 09/17 for worsening dyspnea and hypoxia. CT chest imaging showed a significant right pleural effusion and bilateral patchy infiltrates. WBC was normal. Procal was not elevated. Pt reports gradually worsening dyspnea over several weeks. He has a cough with yellowish sputum production. Denied hemotpysis. Echo showed moderate and EF of 45- 50%. He is currently on 1 L O2. Right throacentesis completed this AM. 1.2 L of clear, yellow fluid was removed. Dyspnea was unchanged prior to thoracentesis. Denied chest pain. Cough unchanged. 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, saw dusts ROS: 6 pt ROS negative except as in HPI Exam Narrative Exam Narrative: General: alert, no acute distress Head: normocephalic ENT: no stridor, trachea midline CV: normal rate, regular rhythm Respiratory: no wheezing, no crackles, no rhonchi, no prolonged expiration, diminished in right base GI: abd soft, non-tender, non-distended Skin: no rashes Extremities: +1 edema, no digital clubbing Psych: normal affect Objective Last Vital Signs Temp 36.5 C 09/20/25 03:49 Pulse 71 09/20/25 03:49 Resp 22 09/20/25 03:49 BP 136/69 09/20/25 03:49 Pulse Ox 97 09/20/25 03:49 Laboratory Results - last 24 hr 09/20/25 06:15 WBC 6.17 RBC 3.35 L Hgb 9.1 L Hct 29.7 L MCV 89 MCH 27.2 MCHC 30.6 L RDW 16.4 H Plt Count 164 MPV 11.4 H Immature Gran % 0.5 Neutrophils % 94.6 Lymphocytes % 2.4 Monocytes % 2.3 Eosinophils % 0.0 Basophils % 0.2 Nucleated RBC % 0.0 Absolute Neutrophils 5.84 Absolute Lymphocytes 0.15 L Absolute Monocytes 0.14 Absolute Eosinophils 0.00 Absolute Basophils 0.01 Sodium 138 Potassium 4.2 Chloride 99 Carbon Dioxide 26.3 Anion Gap 12.9 H BUN 65 H Creatinine 4.1 H* Est GFR (CKD-EPI 2020) 13.83 Glucose 119 H Calcium 8.9 Magnesium 1.8 Results Medications Medications: Active Medications Generic Name Dose Route Start Last Admin Trade Name Freq PRN Reason Stop Dose Admin Acetaminophen 650 mg 09/17/25 16:46 Acetaminophen 325 Mg Tab PO Q4H PRN PRN Albuterol Sulfate 2.5 mg 09/18/25 16:06 Albuterol 2.5 Mg/3 Ml Inh Soln Vial UPD Q4H PRN PRN Albuterol/Ipratropium 3 ml 09/19/25 08:50 09/19/25 09:11 Albuterol/Ipratropium 3 Ml Upd Vial UPD 3 ml Q6H PRN PRN Administration Amlodipine Besylate 2.5 mg 09/18/25 08:30 09/19/25 08:45 Amlodipine 2.5 Mg Tab PO 2.5 mg DAILY KAMALA Administration Aspirin 81 mg 09/18/25 08:30 09/19/25 08:45 Aspirin 81 Mg Chew PO 81 mg DAILY KAMALA Administration Empagliflozin 10 mg 09/20/25 08:30 Empaglifozin 10 Mg Tab PO QAM KAMALA Enoxaparin Sodium 30 mg 09/19/25 08:30 09/19/25 08:44 Enoxaparin 30 Mg/0.3 Ml Syr SC 30 mg DAILY KAMALA Administration Furosemide 40 mg 09/18/25 10:30 09/19/25 16:04 Furosemide 40 Mg/4 Ml Vial IVP 40 mg BID@0800,1600 KAMALA Administration Doxycycline Hyclate 100 mg/ 100 mls @ 100 mls/hr 09/19/25 12:00 09/20/25 00:50 Sodium Chloride IVPB 100 mls/hr Q12H KAMALA Administration Ceftriaxone Sodium/Dextrose 2 gm in 50 mls @ 100 mls/hr 09/19/25 16:00 09/20/25 00:24 Rocephin IVPB Infused Q24H KAMALA Infusion IV Miscellaneous Supplies 1 each 09/19/25 09:15 Iv Access IV DIRECTED KAMALA Metoprolol Succinate 50 mg 09/19/25 20:00 09/19/25 19:50 Metoprolol Cr 50 Mg Tabcr PO 50 mg HS KAMALA Administration Polyethylene Glycol 17 gm 09/17/25 16:46 Polyethylene Glycol 3350 17 Gm Packet PO DAILY PRN PRN Constipation Pravastatin Sodium 20 mg 09/18/25 08:30 09/19/25 08:45 Pravastatin 20 Mg Tab PO 20 mg DAILY KAMALA Administration Sodium Chloride 0 ml 09/19/25 08:46 09/20/25 00:50 Normal Saline Flush 10 Ml Syr IVP 10 ml PRN PRN Administration Allergies cephalexin (From Keflex) Adverse Reaction (Intermediate, Verified 09/17/25 12:10) Pt noted severe abdominal discomfort It was unreal Labs 09/20/25 06:15 09/20/25 06:15 Labs: 09/20/25 08:00 Pleural - Right Body Fluid Culture - Pending 09/20/25 08:00 Pleural - Right Gram Stain - Pending 09/20/25 08:00 Pleural - Right Anaerobic Culture - Pending Laboratory Tests Range/Units 09/17/25 09/17/25 09/17/25 12:18 12:23 12:32 WBC (4.4-10.8) 10^3/uL 5.91 RBC (4.36-5.78) 10^6/uL 3.65 L Hgb (13.5-17.5) g/dL 9.7 L Hct (40.0-50.0) % 32.6 L MCV (80-95) fL 89 MCH (27.0-33.0) pg 26.6 L MCHC (32.0-36.0) % 29.8 L RDW (11.8-14.1) % 16.3 H Plt Count (130-400) 10^3/uL 162 MPV (8.0-11.0) fL 11.2 H Immature Gran % % 0.3 Neutrophils % % 90.3 Lymphocytes % % 3.4 Monocytes % % 5.4 Eosinophils % % 0.3 Basophils % % 0.3 Nucleated RBC % (0.0-0.3) % 0.0 Absolute Neutrophils (1.2-6.7) 10^3/uL 5.33 Absolute Lymphocytes (1.2-3.4) 10^3/uL 0.20 L Absolute Monocytes (0.1-0.8) 10^3/uL 0.32 Absolute Eosinophils (0.0-0.7) 10^3/uL 0.02 Absolute Basophils (0.0-0.2) 10^3/uL 0.02 VBG pH (7.31-7.41) 7.31 VBG pCO2 (41-51) mmHg 53 H VBG pO2 mmHg 28 VBG HCO3 (23-28) mmol/L 27 VBG Total CO2 (24-29) mmol/L 26 VBG O2 Saturation % 43 VBG Base Excess (-2-3) mmol/L 0 VBG Lactate (<or=2.0) mmol/L 2.2 H* Sodium (136-145) mmol/L 139 Potassium (3.5-5.1) mmol/L 4.1 Chloride (98-107) mmol/L 99 Carbon Dioxide (21.0-32.0) mmol/L 27.1 Anion Gap (3-11) mmol/L 12.9 H BUN (7-18) mg/dL 52 H Creatinine (0.70-1.30) mg/dL 4.4 H* Est GFR (CKD-EPI 2020) (mL/min/1.73m2) 12.54 Glucose (74-106) mg/dL 117 H Calcium (8.5-10.1) mg/dL 8.5 Magnesium (1.8-2.4) mg/dL 1.9 Total Bilirubin (0.2-1.0) mg/dL 0.6 AST (15-37) U/L 10 L ALT (16-63) U/L 15 L Alkaline Phosphatase (46-116) U/L 99 Troponin I (<or=76) ng/L 124 H* NT-Pro-B Natriuret Pep (<300) pg/mL > 20344 H Total Protein (6.4-8.2) g/dL 8.9 H Albumin (3.4-5.0) g/dL 2.6 L Procalcitonin ng/mL COVID-19 Source Nasopharynx SARS-CoV-2 (PCR) (Negative) Negative Influenza Type A (PCR) (Negative) Negative Influenza Type B (PCR) (Negative) Negative RSV (PCR) (Negative) Negative Add-On Test Request DONE ABO/Rh A Positive Antibody Screen POSITIVE Range/Units 09/17/25 09/18/25 09/19/25 13:33 05:58 06:12 WBC (4.4-10.8) 10^3/uL 4.40 5.52 RBC (4.36-5.78) 10^6/uL 3.33 L 3.35 L Hgb (13.5-17.5) g/dL 8.9 L 8.9 L Hct (40.0-50.0) % 29.3 L 29.7 L MCV (80-95) fL 88 89 MCH (27.0-33.0) pg 26.7 L 26.6 L MCHC (32.0-36.0) % 30.4 L 30.0 L RDW (11.8-14.1) % 16.8 H 16.3 H Plt Count (130-400) 10^3/uL 144 143 MPV (8.0-11.0) fL 12.0 H 11.5 H Immature Gran % % 0.5 0.4 Neutrophils % % 82.9 84.0 Lymphocytes % % 6.6 5.6 Monocytes % % 7.7 7.4 Eosinophils % % 1.6 2.2 Basophils % % 0.7 0.4 Nucleated RBC % (0.0-0.3) % 0.0 0.0 Absolute Neutrophils (1.2-6.7) 10^3/uL 3.65 4.64 Absolute Lymphocytes (1.2-3.4) 10^3/uL 0.29 L 0.31 L Absolute Monocytes (0.1-0.8) 10^3/uL 0.34 0.41 Absolute Eosinophils (0.0-0.7) 10^3/uL 0.07 0.12 Absolute Basophils (0.0-0.2) 10^3/uL 0.03 0.02 VBG pH (7.31-7.41) VBG pCO2 (41-51) mmHg VBG pO2 mmHg VBG HCO3 (23-28) mmol/L VBG Total CO2 (24-29) mmol/L VBG O2 Saturation % VBG Base Excess (-2-3) mmol/L VBG Lactate (<or=2.0) mmol/L Sodium (136-145) mmol/L 140 140 Potassium (3.5-5.1) mmol/L 4.0 4.0 Chloride (98-107) mmol/L 101 100 Carbon Dioxide (21.0-32.0) mmol/L 27.4 27.9 Anion Gap (3-11) mmol/L 11.6 H 12.1 H BUN (7-18) mg/dL 57 H 61 H Creatinine (0.70-1.30) mg/dL 4.3 H* 4.4 H* Est GFR (CKD-EPI 2020) (mL/min/1.73m2) 12.89 12.54 Glucose (74-106) mg/dL 80 90 Calcium (8.5-10.1) mg/dL 8.3 L 8.6 Magnesium (1.8-2.4) mg/dL 1.9 1.8 Total Bilirubin (0.2-1.0) mg/dL AST (15-37) U/L ALT (16-63) U/L Alkaline Phosphatase (46-116) U/L Troponin I (<or=76) ng/L 118 H* NT-Pro-B Natriuret Pep (<300) pg/mL Total Protein (6.4-8.2) g/dL Albumin (3.4-5.0) g/dL Procalcitonin ng/mL 0.17 COVID-19 Source SARS-CoV-2 (PCR) (Negative) Influenza Type A (PCR) (Negative) Influenza Type B (PCR) (Negative) RSV (PCR) (Negative) Add-On Test Request ABO/Rh Antibody Screen Range/Units 09/20/25 06:15 WBC (4.4-10.8) 10^3/uL 6.17 RBC (4.36-5.78) 10^6/uL 3.35 L Hgb (13.5-17.5) g/dL 9.1 L Hct (40.0-50.0) % 29.7 L MCV (80-95) fL 89 MCH (27.0-33.0) pg 27.2 MCHC (32.0-36.0) % 30.6 L RDW (11.8-14.1) % 16.4 H Plt Count (130-400) 10^3/uL 164 MPV (8.0-11.0) fL 11.4 H Immature Gran % % 0.5 Neutrophils % % 94.6 Lymphocytes % % 2.4 Monocytes % % 2.3 Eosinophils % % 0.0 Basophils % % 0.2 Nucleated RBC % (0.0-0.3) % 0.0 Absolute Neutrophils (1.2-6.7) 10^3/uL 5.84 Absolute Lymphocytes (1.2-3.4) 10^3/uL 0.15 L Absolute Monocytes (0.1-0.8) 10^3/uL 0.14 Absolute Eosinophils (0.0-0.7) 10^3/uL 0.00 Absolute Basophils (0.0-0.2) 10^3/uL 0.01 VBG pH (7.31-7.41) VBG pCO2 (41-51) mmHg VBG pO2 mmHg VBG HCO3 (23-28) mmol/L VBG Total CO2 (24-29) mmol/L VBG O2 Saturation % VBG Base Excess (-2-3) mmol/L VBG Lactate (<or=2.0) mmol/L Sodium (136-145) mmol/L 138 Potassium (3.5-5.1) mmol/L 4.2 Chloride (98-107) mmol/L 99 Carbon Dioxide (21.0-32.0) mmol/L 26.3 Anion Gap (3-11) mmol/L 12.9 H BUN (7-18) mg/dL 65 H Creatinine (0.70-1.30) mg/dL 4.1 H* Est GFR (CKD-EPI 2020) (mL/min/1.73m2) 13.83 Glucose (74-106) mg/dL 119 H Calcium (8.5-10.1) mg/dL 8.9 Magnesium (1.8-2.4) mg/dL 1.8 Total Bilirubin (0.2-1.0) mg/dL AST (15-37) U/L ALT (16-63) U/L Alkaline Phosphatase (46-116) U/L Troponin I (<or=76) ng/L NT-Pro-B Natriuret Pep (<300) pg/mL Total Protein (6.4-8.2) g/dL Albumin (3.4-5.0) g/dL Procalcitonin ng/mL COVID-19 Source SARS-CoV-2 (PCR) (Negative) Influenza Type A (PCR) (Negative) Influenza Type B (PCR) (Negative) RSV (PCR) (Negative) Add-On Test Request ABO/Rh Antibody Screen Imaging Chest x-ray: report reviewed and image reviewed CT scan - chest: report reviewed and image reviewed
--- NOTE | 2025-09-20 08:19 | W.PM.OP ---
Operative Note Operative Note PRE-OP DIAGNOSIS: Pleural effusion Same PROCEDURE: Right thoracentesis SURGEON: Leodan Amado ANESTHESIA TYPE: Local By Surgeon Refer to Anesthesia Record Procedure Description: The procedure risks, benefits, and alternatives were discussed with [], who understood and informed consent was obtained. Laboratory studies and radiographs were reviewed. A time-out was performed. Bedside ultrasound was used to identify an appropriate site for thoracentesis. The site was marked on the right posterior chest wall. Sterile technique was used throughout the procedure. The site was cleaned and draped in a sterile fashion. Using a 10 cc syringe and 22 Ga needle, the skin and tract to the pleural cavity were anesthetized with 10 mL of 1% lidocaine. Pleural fluid was obtained in the 10 cc syringe without difficulty. A small 2-3 mm skin incision was made at the marked site. An 8 Fr catheter over a needle was advanced until positive fluid return. The catheter was then advanced into the pleural space and the needle was removed. Pleural fluid was drained without difficulty. Post-procedure bedside ultrasound demonstrated good lung sliding. There was a small amount of residual fluid remaining. 1200 mL of clear, yellow pleural fluid were removed. Samples were sent for chemistries, cell count, bacterial/fungal/afb cultures, flow cytometry and cytopathology. Follow-up: A chest radiograph was ordered and is pending Follow-up on pleural fluid analysis Date of Procedure: 09/20/25
--- NOTE | 2025-09-20 09:21 | PDOC.CMPRO ---
Date of service: 09/20/25 Time of Service: 09:21 Care Management Progress Note Discharge Potential Discharge Needs: PCP F/U Appt Anticipated Barriers to Discharge: None Identified Patient/Family Education Needs: Review discharge instructions, discuss Ask Me Three Transportation: Private vehicle Plan: Anticipate Sameer will return home once medically cleared. PT has recommended SNF vs HH PT but, at this time, Sameer is refusing to consider either one. He will transport via private vehicle with family and will follow up with his PCP and discharge plan of care. CM will follow and continue to assess for discharge needs. Social Determinants of Health Screening Social Determinants of health last assessed in clinic: 09/19/25 Will the Patient Participate in the Screening?: Yes Do you worry about having a steady place to live?: no Problems where you live: no known problems In the past 12 months, have you had to go without electric, gas, oil or water in your home?: no Has lack of transportation kept you from medical appointments or from doing things needed for daily living?: no Has anyone in your life made you feel unsafe or unsupported?: no How hard is it for you to pay for the very basics like food, housing, medical care, and heating? Would you say it is:: Not hard at all Do you want help finding or keeping work or a job?: I do not need or want help If for any reason you need help with day-to-day activities such as bathing, preparing meals, shopping, managing finances, etc., do you get the help you need?: I don’t need any help How often do you feel lonely or isolated from those around you?: Sometimes Do you speak a language other than Slovak at home?: Yes Health Related Social Needs Health related social needs: feeling lonely/isolated (Z60.8) and education (Z55.6) Health related social needs details: requesting no assistance
[2025-09-20] MEDS: Enoxaparin 30 MG/0.3 ML SYR SC (09:22)
[2025-09-20] MEDS: Empaglifozin 10 MG TAB PO (09:23)
[2025-09-20] MEDS: Furosemide 40 MG/4 ML VIAL IVP (09:23)
[2025-09-20] MEDS: Aspirin 81 MG CHEW PO (09:23)
[2025-09-20] MEDS: amLODIPine 2.5 MG TAB PO (09:23)
[2025-09-20] MEDS: Pravastatin 20 MG TAB PO (09:23)
--- NOTE | 2025-09-20 10:19 | PGE_ITS ---
Date of Service Date of service: 09/20/25 Time of Service: 10:19 Assessment and Plan Assessment and plan (1) Heart failure with mildly reduced ejection fraction (HFmrEF, 41-49%): Status: Acute Assessment and plan: As below (2) Heart failure: Status: Acute Assessment and plan: Ongoing Lasix 40 mg IVP BID then transition to oral prior too discharge Monitor I&O , trend lytes Daily weights 09/18/25: Echocardiogram completed LVEF 45-50%, mild global hypokinesis; IVC collapsing < 50% on inspiration Ongoing Physical therapy: recommending SNF vs HH PT Wean Oxygen for sat 92-94% until seen by Dr. Amado (3) Acute hypoxic respiratory failure: Status: Acute Assessment and plan: in the setting of point 1, 4, and 5 as per 09/19/25 Resolved (4) Pleural effusion, right: Status: Acute Assessment and plan: Resolved s/p thoracentesis (5) Pulmonary edema: Status: Acute Assessment and plan: in the setting of HFmrEF (6) Hypoxic respiratory failure: Status: Acute Assessment and plan: In the setting of Hx of lung mass, smoking hx of cigarets - ongoing pipe smoking , and point 1 Pulmonology consult No Dx of COPD - but has increased sputum , cough and change in color Doxycycline and ceftriaxone XR mentioned opacities and recommended Chest CT done : R pleural effusion and left inflitrate (7) Stage 5 chronic kidney disease: Status: Acute Assessment and plan: Stable and Cr at baseline Avoid nephrotoxic drugs Renal dosing as needed ongoing to monitor electrolytes and kidney function closely and I&O Palliative care consult pending (8) Essential hypertension: Status: Chronic Assessment and plan: Continue routine monitoring,on home medicine regimen and PRN adjustment of meds BP remains stable (9) Abdominal aortic aneurysm (AAA) without rupture: Status: Acute Assessment and plan: Ongoing stable infrarenal fusiform AAA up to 3.5 cm outpatient monitoring - control BP with home meds and adjust PRN (10) Anemia: Status: Acute Assessment and plan: H&H- stable - on dabepoetin roxana injection outpatient (11) Venous ulcer: Status: Acute Assessment and plan: LLE venous ulcer - managed outpatient at wound clinic Wound consult pending (12) Hyperlipidemia: Status: Acute Assessment and plan: on home medicine regimen (13) On deep vein thrombosis (DVT) prophylaxis: Status: Resolved Assessment and plan: continue Renal dosing of LMWH discussed with Dr Diamond (14) Pulmonary infiltrates: Status: Acute Subjective Subjective Patient reports: tolerating liquids well, tolerating a regular diet, voiding w/o difficulty, bowel movement, blood in stool, shortness of breath and other (productive cough with increased yellow -sputum production ); denies feels better, diarrhea, nausea, vomiting or fever Exam Narrative Exam Narrative: Well-appearing male of stated age in no acute distress , eyes nonicteric noninjected oral mucosas moist neck, neurologic: awake alert oriented no focal deficits respirations even and unlabored at rest - labored with movement , heart is regular- rate and rhythm, abdomen soft benign extremities without edema moves all extremities voiding without difficulty psychiatric appropriate mood and affect Objective Last Vital Signs Temp 36.4 C L 09/20/25 09:20 Pulse 74 09/20/25 09:20 Resp 17 09/20/25 09:20 BP 116/50 L 09/20/25 09:20 Pulse Ox 92 09/20/25 09:20 Laboratory Results - last 24 hr 09/20/25 06:15 WBC 6.17 RBC 3.35 L Hgb 9.1 L Hct 29.7 L MCV 89 MCH 27.2 MCHC 30.6 L RDW 16.4 H Plt Count 164 MPV 11.4 H Immature Gran % 0.5 Neutrophils % 94.6 Lymphocytes % 2.4 Monocytes % 2.3 Eosinophils % 0.0 Basophils % 0.2 Nucleated RBC % 0.0 Absolute Neutrophils 5.84 Absolute Lymphocytes 0.15 L Absolute Monocytes 0.14 Absolute Eosinophils 0.00 Absolute Basophils 0.01 Sodium 138 Potassium 4.2 Chloride 99 Carbon Dioxide 26.3 Anion Gap 12.9 H BUN 65 H Creatinine 4.1 H* Est GFR (CKD-EPI 2020) 13.83 Glucose 119 H Calcium 8.9 Magnesium 1.8 Time Spent with Patient Time Spent with Patient: >50 minutes Time was spent: preparing to see the patient(eg.review tests), obtaining and/or reviewing separately otained hiistory, ordering medications,tests, procedures, referring, communicating with other health client care consultant, indepentently interpreting results, counseling the patient, care coordination and other
[2025-09-20 10:22] LABS: Polynuclear Cells 16 %
--- NOTE | 2025-09-20 10:42 | PTTR_ITS ---
PT Notes Visit Reasons: Heart Failure Inpatient Physical Therapy Treatment Note [facility] Date: 09/20/2025 PRECAUTIONS: Fall. Standard. Activity as tolerated. Sever hard of hearing SUBJECTIVE: Pt stated they felt well today. Pt reported that the nursing staff removed some fluid from his lungs earlier. Prior to session pt reported they needed to use the restroom. When RN took pt off O2 post 90 feet, pt reported he couldn’t even feel it ( oxygen). OBJECTIVE: General observation PAIN: None reported for today VITALS: ( poor perfusion in hands) Post 90 feet of ambulation w/FWW on 1 L of O2: Take one: SPO2 93% on 1 L of O2 Take two: SPO2 94% on RA Post 150 feet of ambulation w/FWW on RA Take one: SPO2 88% on RA Take two: SPO2 92% on RA Take three: SPO2 95% on RA Therapeutic Activities ([id number][]): Direct one-on-one instruction in dynamic activities to improve functional performance. BED MOBILITY/TRANSFERS Sit-stand: CGA from recliner, and Min A of 1 from toilet Stand-sit: Supervision Ambulation: Pt ambulated 90 feet of ambulation CGA w/FWW on 1 L of O2. Pt needed a rest, and PT assessed pt SPO2. Pt then went 60 feet of ambulation CGA w/FWW on RA. Pt john, step length, and step height were all WFL. Provided skilled cues and instruction on performance and technique throughout. ASSESSMENT: Pt was able to ambulate well on 1L of O2. RN and PT made the clinical decision to remove the O2 from the pt. Pt had no decrease in quality of ambulation post removal of O2. Pt SPO2 dropped slightly post ambulation, but slowly increased with verbal cueing and demonstration with proper breathing technique. Pt continues to have difficulty ambulating without an assistive device, and has decreased activity tolerance. Pt would continue to benefit from skilled physical therapy. If d/c to home recommend pt to use FWW instead of his cane. PLAN: 1-2x/day, 7 days/week x 1 week. Plan of care has been reviewed with the CREDIT RISK MANAGER providing the service under Physical Therapy direction. Initiate Physical Therapy intervention for pain management as needed, strengthening, bed mobility, transfers, gait, stairs, balance tra ining, and use of assistive device. TREATMENT CODE/TIME: 33015/9:55-10:29 DISCHARGE RECOMMENDATION: HHPT vs Outpatient Written By : Tavo Ramirez DPTS Supervised By: Iris Rai PT
--- NOTE | 2025-09-20 11:06 | PCNE_ITS ---
Date of service: 09/20/25 Time of Service: 10:45 History of Present Illness Narrative: Mr. Estrella is an 84 y/o M currently hospitalized at [facility] 2/2 CHF exacerbation; PMHx sig for B cell lymphoma, CHF CKD, AAA (3.5cm) Hospital course: presented to ED on 09/17 wCC SOB at night w/increased panic; hypoxic, concerns of fluid overload, started on IV Lasix, admitted w/CHF exacerbation; ECHO w/EF 45-50% and IVC collapse; 09/18 cough w/sputum, started on IV doxycycline and prednisone burst; pulm consult, CT w/R pleural effusion; add ceftriaxone; diagnostic thoracentesis this morning, took off around 1.2L, sample sent; now on RA; renal labs have been stable, continues to make urine; goal for removal of palacios today and discharge today PT consult recommend SNF vs home w/HH; has been a standby 1 assist for transfers Sameer reports he did not get a lot of sleep last night, does not wish to engage too much w/visit today. He likes to do things on his own. He does not like to rely on others, he has never taken a hand out. He reports he is no longer doing treatment for his B cell lymphoma; some vague comment regarding awareness of concern for spread; was on q3wk shots at [facility] 10/04 has appt for his foot w/chronic ulcer He is aware he has CKD, has never heard of dialysis His cough is somewhat painful from today's procedure; he does not want treatment for cough or pain he [place] at [place] w/his Meseret; they have 4 children and 9 grands; he wants to get home to work on stuff at home Sameer confirms [facility] are Meseret and [facility], wants all kids involved in decisions reports has mentioned hospice; he does not feel like he needs this today want to get home ZABRINA Assessment and Plan Assessment and plan (1) Acute hypoxic respiratory failure: Status: Acute Assessment and plan: now on RA diagnostic thoracentesis today transition to oral antibiotics for discharge, complete prednisone burst (2) Pleural effusion, right: Status: Acute (3) Heart failure with mildly reduced ejection fraction (HFmrEF, 41-49%): Status: Acute Assessment and plan: exacerbation resolved w/diuresis, transition to oral diuretics on discharge (4) Venous ulcer: Status: Acute Assessment and plan: f/u podiatry 10/04 (5) Cough: Status: Acute Assessment and plan: denies cough med or pain med; anticipate painful cough resolve post today's procedure (6) B-cell lymphoma: Status: Acute Assessment and plan: current preference for no treatment; reviewed recommendation for hospice to remain home and limit hospitalizations/interactions w/HC settings; denies need today f/b Dr Duenas; recommend oncology confirm plan, refer to hospice as appropriate previously q3wk injections (7) Stage 5 chronic kidney disease: Status: Acute Assessment and plan: continues to make urine; palacios to be removed today unaware of dialysis treatment, defers conversation today (8) Weight loss, abnormal: Status: Acute Assessment and plan: noted 11lb weight loss since Jul 2025 (9) Abdominal aortic aneurysm (AAA) without rupture: Status: Acute (10) Palliative care encounter: Status: Acute Assessment and plan: PC offered f/u to continue to support Sameer and his QoL preferences, living the life he wants; he denies scheduled f/u today - I'll call you, don't call me (11) ACP (advance care planning): Status: Acute Assessment and plan: reviewed recommendation for hospice referral for current preferences for no further onc treatment and to limit interactions w/HC settings; he may consider returning to hospital reviewed AD [facility] lists [facility] as [facility] and [place]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, wants all 4 children involved; feels they know what he wants - AD treatment preferences: start tx if more time is needed, no FT/IVF if unable to drink/eat; be home and treat pain reviewed palliative care philosophy, honoring his wishes/preferences, plan for life he wants, treatment he wants; he denies f/u/ today; but does accept card and phone number spent 15m w/ACP Review of Systems Narrative: as per HPI PFSH All Active Problems (Updated 09/20/25 @ 17:39 by Carmencita Mckenzie NP) ACP (advance care planning) (Acute) Palliative care encounter (Acute) Pulmonary edema (Acute) Acute hypoxic respiratory failure (Acute) Pulmonary infiltrates (Acute) Pleural effusion, right (Acute) Hypoxic respiratory failure (Acute) Heart failure with mildly reduced ejection fraction (HFmrEF, 41-49%) (Acute) Venous ulcer (Acute) Heart failure (Acute) New onset of congestive heart failure (Acute) Fluid overload (Acute) Cough (Acute) B-cell lymphoma (Acute) Abnormal finding on imaging (Acute) Stage 5 chronic kidney disease (Acute) Arthritis (Acute) Acute on chronic renal failure (Acute) Hyperkalemia (Acute) Acute renal failure (Acute) Shingles (Acute) Venous ulcer of left leg (Acute) Lung mass (Acute) Heart murmur (Chronic) Acute kidney injury superimposed on chronic kidney disease (Acute) Dehydration (Acute) Hypomagnesemia (Acute) Syncope and collapse (Acute) Spinal stenosis (Acute) GERD (gastroesophageal reflux disease) (Chronic) Weight loss, abnormal (Acute) Atherosclerosis of artery of both lower extremities (Acute) Venous stasis dermatitis of both lower extremities (Acute) Aneurysm of right iliac artery (Acute) Non-healing ulcer of foot with fat layer exposed (Acute) Chronic ulcer of left lower extremity with fat layer exposed (Acute) Venous stasis ulcer of ankle (Acute) Smoker unmotivated to quit (Chronic) Myocardial infarction (Acute 10/08/84) Status post carotid endarterectomy (Acute) Status post phlebectomy (Acute) Compression fracture of lumbar spine, non-traumatic (Acute) Abdominal aortic aneurysm (AAA) without rupture (Acute 05/27/16) 3.5cm 05/24 CT scan Abnormal thyroid stimulating hormone (TSH) level (Acute 06/02/17) Chronic suppressed TSH. Normal T3, T4. Anemia (Acute 06/02/17) chronic normocystic. No etiology found. Bundle branch block, unspecified (Acute) left Carotid artery stenosis (Acute) Cataract (Acute) O.D. 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 likely due to DM Psoriasis (Acute) Right rotator cuff tear (Acute 02/20/15) Smell or taste problem (Acute) Syncope and collapse (Acute) ? 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 Sister No problems noted. Social History Smoking/Tobacco Use Status: Current every day Tobacco Type: pipe Smoking risk assessment performed?: Yes Alcohol Intake: current Alcohol Intake frequency: 0-2 drinks per day Substance use type: does not use Housing: house Current gender identity: male Do you feel safe at home: Yes Do you feel safe in your relationship?: Yes Exam Narrative Exam Narrative: General: older adult male, sleeping in recliner, wakes to touch/voice command w/startle and agitation; ill and frail appearing HEENT: hearing grossly WNL; MMM; normocephalic, atraumatic Resp: even and unlabored; spreaks full sentences w/o SOB; no cough or audible wheeze Psych: speech/movement WNL; MS WNL; guarded, irritated, cooperative depending on subject; thought process loose association, impoverished; insight/judgment limited Results Last Vital Signs Temp 97.5 F L 09/20/25 09:20 Pulse 74 09/20/25 09:20 Resp 17 09/20/25 09:20 BP 116/50 L 09/20/25 09:20 Pulse Ox 95 09/20/25 10:24 Labs 09/20/25 06:15 09/20/25 06:15 Labs: Laboratory Results - last 24 hr 09/20/25 09/20/25 06:15 07:57 WBC 6.17 RBC 3.35 L Hgb 9.1 L Hct 29.7 L MCV 89 MCH 27.2 MCHC 30.6 L RDW 16.4 H Plt Count 164 MPV 11.4 H Immature Gran % 0.5 Neutrophils % 94.6 Lymphocytes % 2.4 Monocytes % 2.3 Eosinophils % 0.0 Basophils % 0.2 Nucleated RBC % 0.0 Absolute Neutrophils 5.84 Absolute Lymphocytes 0.15 L Absolute Monocytes 0.14 Absolute Eosinophils 0.00 Absolute Basophils 0.01 Sodium 138 Potassium 4.2 Chloride 99 Carbon Dioxide 26.3 Anion Gap 12.9 H BUN 65 H Creatinine 4.1 H* Est GFR (CKD-EPI 2020) 13.83 Glucose 119 H Calcium 8.9 Magnesium 1.8 Fluid Source Pleural Fluid Color Yellow Fluid Clarity Clear Fluid WBC 315 Fld Polynuclear WBCs % 16 Fluid Mononuclear Cell 84 Time Spent Time Spent with Patient Time Spent(min): 50
--- NOTE | 2025-09-20 13:58 | W.PM.DS.N ---
Date of service: 09/20/25 Time of Service: 13:58 DS: Diagnosis Discharge Diagnosis (1) Heart failure with mildly reduced ejection fraction (HFmrEF, 41-49%): Status: Acute (2) Heart failure: Status: Acute (3) Hypoxic respiratory failure: Status: Acute (4) Stage 5 chronic kidney disease: Status: Acute (5) Essential hypertension: Status: Chronic (6) Abdominal aortic aneurysm (AAA) without rupture: Status: Acute (7) Anemia: Status: Acute (8) Venous ulcer: Status: Acute (9) Hyperlipidemia: Status: Acute (10) On deep vein thrombosis (DVT) prophylaxis: Status: Resolved Discharge Plan Disposition Patient Disposition: Home W/Home Health Services Condition: Improving Discharge Details Reason For Visit: Heart Failure Admit Date/Time: 09/17/25 15:43 Admit Provider: Rhett Diamond Attending Provider: Rhett Diamond Primary Care Provider: Marino Nieto Hospital Course Hospital Course: This is an 84 year male with a past medical history of B-cell lymphoma, lung mass, 42 pack- year remote smoking history but currently a pipe smoker, liver mass, infrarenal fusiform AAA at 3.5 cm, chronic kidney disease stage 5 against dialysis, who presented to the ED for evaluation of increased shortness of breath worsening at night and described as as claustrophobia, feeling like he is panicking w/o c/o any chest pain, fever chills or recent illness. His work up in the ED was concerning for fluid overload and IV Lasix 80 mg X1 given increase urine production. The patient was admitted to the medical surgical floor by the hospitalist service for further management and evaluation. Lasix 40 mg IV BID while inpatient will be transitioned to oral therapy at discharged. 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 The patient will benefit from a cardiology referral outpatient and this is deferred to his PCP for GDMT for HFmrEF. Metoprolol tartrate transitioned to metoprolol succinate and jardiance added to regimen Initially improving but developed increased oxygen requirement. Chest CT showed large right pleural effusion with right lower lobe collapse and left patchy infiltrate to the lower lobes. Doxycycline and prednisone burst initiated. Pulmonary consult with Dr. Amado initiated with recommendations for thoracentesis and addition of ceftriaxone without steroids. The patient aggreed to thoracentesis this morning resulting in 1200ml of pleural fluid sent for analysis. The patient clinical improved s/p procedure and ambulated w/o oxygen requirement. The patient to follow-up with pulmonology outpatient which will be arranged by Dr. Amado as per discussion. The patient is hemodynamically stable, afebrile and The patient will be discharged home on oral lasix, jardiance, oral antibiotics, as needed breathing treatments with Combivent inhaler. The patient would have benefited from home health physical therapy but he refused and accepted home health nursing to assist him with new medicine regimen. Follow-up with PCP within 7 days of discharge. Discussed with Dr. Diamond Recommendations for Follow Up Recommended tests to be ordered by follow up provider: Cardiology referral needed Home Meds and New Rx's Prescriptions: New acetaminophen 325 mg Tablet 650 mg PO Q6H PRNQty: 60 0RF furosemide [Lasix] 20 mg tablet 60 mg PO BID Qty: 180 0RF Rx Instructions: Take at 8AM and 4 PM metoprolol succinate 50 mg tablet extended release 24 hr 50 mg PO QHS Qty: 30 0RF Combivent Respimat 20-100 mcg/actuation Mist 1 puff inhalation QID PRN PRNQty: 4 0RF Jardiance 10 mg Tablet 10 mg PO QAM Qty: 30 0RF Rx Instructions: For heart failure cefpodoxime 200 mg tablet 200 mg PO DAILY Qty: 4 0RF Rx Instructions: must administer with a meal/food doxycycline hyclate 100 mg capsule 100 mg PO BID Qty: 9 0RF Continued silver sulfadiazine [Silvadene] 1 % cream 1 applic Topical DAILY PRN (Reason: wound healing) Qty: 50 6RF triamcinolone acetonide 0.1 % ointment 1 applic Topical BID PRN (Reason: stasis ulcer) Qty: 453.6 2RF triamcinolone acetonide 0.5 % cream 1 applic Topical BID Qty: 45 3RF Rx Instructions: Use on affected area that is about 3 inches in diameter amlodipine 2.5 mg tablet 2.5 mg PO DAILY Qty: 90 3RF Patient Comments: TAKE 1 TABLET BY MOUTH DAILY pravastatin 20 mg tablet 20 mg PO DAILY Qty: 90 3RF aspirin 81 MG tablet,chewable 1 tab PO DAILY Patient Comments: 06/08/18 restarted. romeo 04/21/18 not taking. romeo Discontinued metoprolol tartrate 50 mg tablet 25 mg PO BID Qty: 90 3RF Discharge Instructions Stand Alone Forms: Portal Information Referrals: Marino Nieto MD [Primary Care Provider, Medicine] Referral Note: Follow-up within 7 days of discharge, please will need a cardiology referral as per echocardiogram result w LVEF 45-50% and new onset HFmrEF Activity:: Activity as Tolerated Equipment/Supplies:: Walker Diet:: Heart healthy Discharge Orders Discharge Orders: Discharge Order (Routine); Ordered 09/20/25 Ordered By: Madison Orozco DS: Summary Time Spent with Patient providing and/or coordinating discharge services: Greater than 30 minutes Status at Discharge Functional status at discharge: independent ambulation Overall status at discharge: patient is progressing back to baseline Mental Status: mental status grossly normal Speech and Movement: speech and movement normal Mood: anxious mood and irritable mood Affect: labile affect, anxious affect and irritable affect Quality:SDOH Health Related Social Needs: Health related social needs transpo insecurity house/econ circumstance Health related social needs details requesting no assistance Health related social needs details: requesting no assistance Exam Psych Mental Status: mental status grossly normal Speech and Movement: speech and movement normal Mood: anxious mood and irritable mood Affect: labile affect, anxious affect and irritable affect DS: Data Vitals/I&O Vitals and I&O: Vital Signs Temperature 36.1 C L 09/20/25 11:56 Temperature Source Temporal Artery Scan 09/20/25 11:56 Pulse 68 09/20/25 11:56 Pulse 71 09/17/25 12:31 Respiratory Rate 17 09/20/25 11:56 Respiratory Effort Short of Breath, Labored, Splinting 09/17/25 17:58 Respiratory Pattern Tachypnea 09/17/25 17:58 Blood Pressure 120/52 L 09/20/25 11:56 Blood Pressure Mean 74 09/20/25 11:56 Pulse Oximetry 91 L 09/20/25 11:56 Oxygen Delivery Method Room Air 09/20/25 11:56 Oxygen Flow Rate 0 09/20/25 11:56 Pain Level 0 09/19/25 20:08 Comment Vitals taken at admission. 09/18/25 00:38 Intake & Output 11/11/25 11/12/25 11/12/25 23:59 11:59 23:59 Intake Total 500 / 980 480 / 580 100 / 580 Output Total 600 / 600 825 / 1450 625 / 1450 Balance -100 / 380 -345 / -870 -525 / -870 Weight 86.2 kg Intake: IV 100 / 100 160 / 260 100 / 260 Oral 400 / 880 320 / 320 Output: Urine 600 / 600 825 / 1450 625 / 1450 Other: Urine Color Pale Yellow Yellow Urine Appearance Clear Clear Clear Urine Odor Normal Comment pt aware condom cath may not work well for patient anatomy, palacios may be best bet for patient. pt complained of feeling wet palacios was leaking pt was wet checked for kinks palacios appears to still be draining into bag. Stool Size Moderate Stool Characteristics Formed Data Completed and Pending Pending Labs at Discharge: 09/17/25 09/17/25 09/17/25 12:18 12:23 12:32 WBC 5.91 RBC 3.65 L Hgb 9.7 L Hct 32.6 L MCV 89 MCH 26.6 L MCHC 29.8 L RDW 16.3 H Plt Count 162 MPV 11.2 H Immature Gran % 0.3 Neutrophils % 90.3 Lymphocytes % 3.4 Monocytes % 5.4 Eosinophils % 0.3 Basophils % 0.3 Nucleated RBC % 0.0 Absolute Neutrophils 5.33 Absolute Lymphocytes 0.20 L Absolute Monocytes 0.32 Absolute Eosinophils 0.02 Absolute Basophils 0.02 VBG pH 7.31 VBG pCO2 53 H VBG pO2 28 VBG HCO3 27 VBG Total CO2 26 VBG O2 Saturation 43 VBG Base Excess 0 VBG Lactate 2.2 H* Sodium 139 Potassium 4.1 Chloride 99 Carbon Dioxide 27.1 Anion Gap 12.9 H BUN 52 H Creatinine 4.4 H* Est GFR (CKD-EPI 2020) 12.54 Glucose 117 H Calcium 8.5 Magnesium 1.9 Total Bilirubin 0.6 AST 10 L ALT 15 L Alkaline Phosphatase 99 Troponin I 124 H* NT-Pro-B Natriuret Pep > 16544 H Total Protein 8.9 H Albumin 2.6 L Procalcitonin Fluid Type Fluid Source Fluid Color Fluid Clarity Fluid WBC Fld Polynuclear WBCs % Fluid Mononuclear Cell Fluid Glucose Fluid Total Protein Fluid LDH COVID-19 Source Nasopharynx SARS-CoV-2 (PCR) Negative Influenza Type A (PCR) Negative Influenza Type B (PCR) Negative RSV (PCR) Negative AFB Smear AFB Culture Final Res Path Cons Comment Add-On Test Request DONE ABO/Rh A Positive Antibody Screen POSITIVE Antibody Identification Pending 09/17/25 09/18/25 09/19/25 13:33 05:58 06:12 WBC 4.40 5.52 RBC 3.33 L 3.35 L Hgb 8.9 L 8.9 L Hct 29.3 L 29.7 L MCV 88 89 MCH 26.7 L 26.6 L MCHC 30.4 L 30.0 L RDW 16.8 H 16.3 H Plt Count 144 143 MPV 12.0 H 11.5 H Immature Gran % 0.5 0.4 Neutrophils % 82.9 84.0 Lymphocytes % 6.6 5.6 Monocytes % 7.7 7.4 Eosinophils % 1.6 2.2 Basophils % 0.7 0.4 Nucleated RBC % 0.0 0.0 Absolute Neutrophils 3.65 4.64 Absolute Lymphocytes 0.29 L 0.31 L Absolute Monocytes 0.34 0.41 Absolute Eosinophils 0.07 0.12 Absolute Basophils 0.03 0.02 VBG pH VBG pCO2 VBG pO2 VBG HCO3 VBG Total CO2 VBG O2 Saturation VBG Base Excess VBG Lactate Sodium 140 140 Potassium 4.0 4.0 Chloride 101 100 Carbon Dioxide 27.4 27.9 Anion Gap 11.6 H 12.1 H BUN 57 H 61 H Creatinine 4.3 H* 4.4 H* Est GFR (CKD-EPI 2020) 12.89 12.54 Glucose 80 90 Calcium 8.3 L 8.6 Magnesium 1.9 1.8 Total Bilirubin AST ALT Alkaline Phosphatase Troponin I 118 H* NT-Pro-B Natriuret Pep Total Protein Albumin Procalcitonin 0.17 Fluid Type Fluid Source Fluid Color Fluid Clarity Fluid WBC Fld Polynuclear WBCs % Fluid Mononuclear Cell Fluid Glucose Fluid Total Protein Fluid LDH COVID-19 Source SARS-CoV-2 (PCR) Influenza Type A (PCR) Influenza Type B (PCR) RSV (PCR) AFB Smear AFB Culture Final Res Path Cons Comment Add-On Test Request ABO/Rh Antibody Screen Antibody Identification 09/20/25 09/20/25 06:15 07:57 WBC 6.17 RBC 3.35 L Hgb 9.1 L Hct 29.7 L MCV 89 MCH 27.2 MCHC 30.6 L RDW 16.4 H Plt Count 164 MPV 11.4 H Immature Gran % 0.5 Neutrophils % 94.6 Lymphocytes % 2.4 Monocytes % 2.3 Eosinophils % 0.0 Basophils % 0.2 Nucleated RBC % 0.0 Absolute Neutrophils 5.84 Absolute Lymphocytes 0.15 L Absolute Monocytes 0.14 Absolute Eosinophils 0.00 Absolute Basophils 0.01 VBG pH VBG pCO2 VBG pO2 VBG HCO3 VBG Total CO2 VBG O2 Saturation VBG Base Excess VBG Lactate Sodium 138 Potassium 4.2 Chloride 99 Carbon Dioxide 26.3 Anion Gap 12.9 H BUN 65 H Creatinine 4.1 H* Est GFR (CKD-EPI 2020) 13.83 Glucose 119 H Calcium 8.9 Magnesium 1.8 Total Bilirubin AST ALT Alkaline Phosphatase Troponin I NT-Pro-B Natriuret Pep Total Protein Albumin Procalcitonin Fluid Type Pending Fluid Source Pleural Fluid Color Yellow Fluid Clarity Clear Fluid WBC 315 Fld Polynuclear WBCs % 16 Fluid Mononuclear Cell 84 Fluid Glucose Pending Fluid Total Protein Pending Fluid LDH Pending COVID-19 Source SARS-CoV-2 (PCR) Influenza Type A (PCR) Influenza Type B (PCR) RSV (PCR) AFB Smear Pending AFB Culture Final Res Pending Path Cons Comment Pending Add-On Test Request ABO/Rh Antibody Screen Antibody Identification Preliminary micro results at discharge 09/20/25 07:57 Pleural - Right Body Fluid Culture - Pending 09/20/25 07:57 Pleural - Right Anaerobic Culture - Pending [facility] All Active Problems (Updated 09/19/25 @ 15:03 by Leodan Amado MD) Pulmonary infiltrates (Acute) Pleural effusion, right (Acute) Hypoxic respiratory failure (Acute) Heart failure with mildly reduced ejection fraction (HFmrEF, 41-49%) (Acute) Venous ulcer (Acute) Heart failure (Acute) New onset of congestive heart failure (Acute) Fluid overload (Acute) Cough (Acute) B-cell lymphoma (Acute) Abnormal finding on imaging (Acute) Stage 5 chronic kidney disease (Acute) Arthritis (Acute) Acute on chronic renal failure (Acute) Hyperkalemia (Acute) Acute renal failure (Acute) Shingles (Acute) Venous ulcer of left leg (Acute) Lung mass (Acute) Heart murmur (Chronic) Acute kidney injury superimposed on chronic kidney disease (Acute) Dehydration (Acute) Hypomagnesemia (Acute) Syncope and collapse (Acute) Spinal stenosis (Acute) GERD (gastroesophageal reflux disease) (Chronic) Weight loss, abnormal (Acute) Atherosclerosis of artery of both lower extremities (Acute) Venous stasis dermatitis of both lower extremities (Acute) Aneurysm of right iliac artery (Acute) Non-healing ulcer of foot with fat layer exposed (Acute) Chronic ulcer of left lower extremity with fat layer exposed (Acute) Venous stasis ulcer of ankle (Acute) Smoker unmotivated to quit (Chronic) Myocardial infarction (Acute 10/08/84) Status post carotid endarterectomy (Acute) Status post phlebectomy (Acute) Compression fracture of lumbar spine, non-traumatic (Acute) Abdominal aortic aneurysm (AAA) without rupture (Acute 05/27/16) 3.5cm 05/24 CT scan Abnormal thyroid stimulating hormone (TSH) level (Acute 06/02/17) Chronic suppressed TSH. Normal T3, T4. Anemia (Acute 06/02/17) chronic normocystic. No etiology found. Bundle branch block, unspecified (Acute) left Carotid artery stenosis (Acute) Cataract (Acute) O.D. 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 likely due to DM Psoriasis (Acute) Right rotator cuff tear (Acute 02/20/15) Smell or taste problem (Acute) Syncope and collapse (Acute) ? secondary to medications Tobacco use disorder (Acute) pipe Varicose veins of lower extremity with ulcer (Acute) Surgical History PROCEDURES ENDARTERECTOMY NOS left carotid LEG VEIN EXCISION, 2008 left leg; chronic venous ulcers [place] [facility] [place] Family History Mother Personal history of malignant neoplasm ovarian Heart disease Hyperlipidemia Father Heart disease Sister No problems noted. Sister No problems noted. Social History Smoking/Tobacco Use Status: Current every day Tobacco Type: pipe Smoking risk assessment performed?: Yes Alcohol Intake: current Alcohol Intake frequency: 0-2 drinks per day Substance use type: does not use Housing: house Current gender identity: male Do you feel safe at home: Yes Do you feel safe in your relationship?: Yes Time Spent with Patient Time Spent with Patient: >85 minutes Time was spent: preparing to see the patient(eg.review tests), obtaining and/or reviewing separately otained hiistory, ordering medications,tests, procedures, referring, communicating with other health geriatric care manager, indepentently interpreting results, counseling the patient, care coordination and other
[2025-09-20] MEDS: Ipratropium/Albuterol 4 GM 120 PUFF INH IH (14:53)
--- NOTE | 2025-09-20 15:11 | CMDISCH_ITS ---
Date of service: 09/20/25 Time of Service: 15:11 LACE Index Scoring Tool Questions: Length of Stay (in days): 3 Was the patient admitted via the E.D.?: Yes Comorbidities: Previous M.I., Congestive Heart Failure, Any Tumor and Liver or Renal Disease E.D. Visits: 1 Answers: Total Score: 12 Risk of Readmission: High Risk Care Management Discharge Plan Reason for Hospitalization: heart failure Discharge Plan: Sameer will be discharged home with new home health services for nursing. He will follow up with his PCP and plan of care and transport with family. Patient/Family Education Needs: review of discharge instructions, limitations, follow up plan and discuss Ask Me Three Services Needed at Discharge: Home Health Care Services SDOH Health Related Social Needs: Health related social needs transpo insecurity house/e con circumstance Health related social needs details requesting no assi stance Health related social needs details: requesting no assistance
[2025-09-20 17:33] LABS: Glucose, Fluid 121 mg/dL (See Note)
[2025-09-22 09:12] LABS: Lactate Dehydrogenase (LD), BF 100 U/L
[2025-09-22 11:02] LABS: Protein,Total, BF 4.6 g/dL
== END 2025-09-20 15:17 | disposition home health service (06) | DRG 291 ==
LOC: ER 14:00 → MS 17:30
PROVIDERS: Internal Medicine Pulmonary Disease; Nurse Practitioner Acute Care; Admitting Provider Family Medicine; Emergency Provider General Practice; PCP Family Medicine; Responsible Provider Nurse Practitioner Acute Care; Visit Provider Family Medicine
DX: N18.5 Chronic kidney disease, stage 5; E78.5 Hyperlipidemia, unspecified; I13.2 Hypertensive heart and chronic kidney disease with heart failure and with stage 5 chronic kidney disease, or end stage renal disease; I71.41 Pararenal abdominal aortic aneurysm, without rupture; J96.01 Acute respiratory failure with hypoxia; R63.4 Abnormal weight loss; Z68.27 Body mass index [BMI] 27.0-27.9, adult; I50.21 Acute systolic (congestive) heart failure; N17.9 Acute kidney failure, unspecified; C85.10 Unspecified B-cell lymphoma, unspecified site; L97.829 Non-pressure chronic ulcer of other part of left lower leg with unspecified severity; J90 Pleural effusion, not elsewhere classified; E87.5 Hyperkalemia; E86.0 Dehydration; E83.42 Hypomagnesemia; K21.9 Gastro-esophageal reflux disease without esophagitis; M48.00 Spinal stenosis, site unspecified; I70.203 Unspecified atherosclerosis of native arteries of extremities, bilateral legs; I25.2 Old myocardial infarction; I44.7 Left bundle-branch block, unspecified; D64.9 Anemia, unspecified; I34.0 Nonrheumatic mitral (valve) insufficiency; G62.9 Polyneuropathy, unspecified; L40.9 Psoriasis, unspecified; F17.290 Nicotine dependence, other tobacco product, uncomplicated; Z79.899 Other long term (current) drug therapy; I83.028 Varicose veins of left lower extremity with ulcer other part of lower leg
CPT/HCPCS: 32554; 00123; 36415; 71250; 80048; 80053; 82805; 84145; 86850; 86900; 86901; 87116; 87206; 87637; 93005; 93308; 94640; 96372; 97162; 97530; 99223; 99233; 99285; J1650; 71045; 81373; 83605; 83615; 83735; 83880; 84157; 84484; 85025; 86870; 86880; 86885; 87070; 87075; 87205; 88104; 88184; 88185; 89051; 93010; 93306; 94664; 94760; 99239; J0696; J1938; J3490; J7512; J7620

== ENCOUNTER → 2025-09-21 11:07 | Outpatient (BNVA) | payer MEDICARE, SELFPAY | PROVIDERS: PCP Family Medicine; Referring Provider Family Medicine; Visit Provider Internal Medicine Pulmonary Disease ==

== ENCOUNTER 2025-10-04 02:16 | Outpatient (CLI) | payer MEDICARE, SELFPAY ==
[2025-10-04 13:30] LABS: Abs Immature Grans 0.02 10^3/uL (0.0-0.06); HCT 30.5 % (40.0-50.0); HGB 9.4 g/dL (13.5-17.5); Immature Grans % 0.3 %; MCH 26.4 pg (27.0-33.0); MCHC 30.8 % (32.0-36.0); MCV 86 fL (80-95); MPV 11.0 fL (8.0-11.0); Platelet Count 210 10^3/uL (130-400); RBC 3.56 10^6/uL (4.36-5.78); RDW 16.4 % (11.8-14.1); RDW-SD 51.3 fL; WBC 5.78 10^3/uL (4.4-10.8)
[2025-10-04 13:51] LABS: LDH 139 U/L (120-246)
[2025-10-04 14:07] LABS: ALT 18 U/L (10-49); AST 18 U/L (<34); Albumin 3.6 g/dL (3.2-5.0); Alkaline Phosphatase 77 U/L (46-116); Anion Gap 14.2 mmol/L (3-11); BUN 90 mg/dL (9-23); Bilirubin, Total 0.30 mg/dL (0.2-1.2); CO2 31.7 mmol/L (20.0-31.0); Calcium 8.8 mg/dL (8.3-10.6); Chloride 93 mmol/L (98-107); Glucose 81 mg/dL (74-106); Potassium 4.1 mmol/L (3.5-5.1); Sodium 139 mmol/L (136-145); Total Protein 9.7 g/dL (5.7-8.2)
== END 2025-10-04 02:17 | disposition home or self-care (01) ==
LOC: LBO 02:16
PROVIDERS: PCP Family Medicine; Visit Provider Internal Medicine Hematology & Oncology
DX: D47.2 Monoclonal gammopathy (principal); C85.10 Unspecified B-cell lymphoma, unspecified site; D64.9 Anemia, unspecified; N17.9 Acute kidney failure, unspecified
CPT/HCPCS: 36415; 80053; 83615; 85025

== ENCOUNTER → 2025-10-17 12:57 | Outpatient (BNVA) | payer MEDICARE, SELFPAY | PROVIDERS: PCP Family Medicine; Referring Provider Family Medicine; Visit Provider Internal Medicine Pulmonary Disease | DX: J90 Pleural effusion, not elsewhere classified (principal); R91.8 Other nonspecific abnormal finding of lung field; F17.210 Nicotine dependence, cigarettes, uncomplicated | CPT/HCPCS: 99214; 76604 ==

== ENCOUNTER 2025-10-19 10:52 | Outpatient (CLI) | payer MEDICARE, SELFPAY ==
[2025-10-19 15:18] LABS: Anion Gap 12.2 mmol/L (3-11); BUN 84 mg/dL (9-23); CO2 26.8 mmol/L (20.0-31.0); Calcium 7.6 mg/dL (8.3-10.6); Chloride 98 mmol/L (98-107); Glucose 95 mg/dL (74-106); Potassium 4.1 mmol/L (3.5-5.1); Sodium 137 mmol/L (136-145)
== END 2025-10-19 10:53 | disposition home or self-care (01) ==
PROVIDERS: PCP Family Medicine; Visit Provider Family Medicine
DX: E87.1 Hypo-osmolality and hyponatremia (principal)
CPT/HCPCS: 36415; 80048

== ENCOUNTER 2025-10-25 00:41 | Outpatient (CLI) | payer MEDICARE, SELFPAY ==
[2025-10-25 10:53] LABS: Abs Immature Grans 0.02 10^3/uL (0.0-0.06); HCT 30.0 % (40.0-50.0); HGB 9.1 g/dL (13.5-17.5); Immature Grans % 0.4 %; MCH 27.0 pg (27.0-33.0); MCHC 30.3 % (32.0-36.0); MCV 89 fL (80-95); MPV 10.3 fL (8.0-11.0); Platelet Count 175 10^3/uL (130-400); RBC 3.37 10^6/uL (4.36-5.78); RDW 19.6 % (11.8-14.1); RDW-SD 63.6 fL; WBC 4.96 10^3/uL (4.4-10.8)
[2025-10-25 11:13] LABS: LDH 150 U/L (120-246)
[2025-10-25 11:19] LABS: ALT 9 U/L (10-49); AST 12 U/L (<34); Albumin 3.6 g/dL (3.2-5.0); Alkaline Phosphatase 71 U/L (46-116); Anion Gap 12.5 mmol/L (3-11); BUN 70 mg/dL (9-23); Bilirubin, Total 0.3 mg/dL (0.2-1.2); CO2 25.5 mmol/L (20.0-31.0); Calcium 8.2 mg/dL (8.3-10.6); Chloride 103 mmol/L (98-107); Glucose 106 mg/dL (74-106); Potassium 4.7 mmol/L (3.5-5.1); Sodium 141 mmol/L (136-145); Total Protein 8.9 g/dL (5.7-8.2)
== END 2025-10-25 00:42 | disposition home or self-care (01) ==
LOC: LBO 00:41
PROVIDERS: PCP Family Medicine; Visit Provider Internal Medicine Hematology & Oncology
DX: D47.2 Monoclonal gammopathy (principal); C85.10 Unspecified B-cell lymphoma, unspecified site; D64.9 Anemia, unspecified; N17.9 Acute kidney failure, unspecified
CPT/HCPCS: 36415; 80048; 80053; 83615; 85025